=== PATIENT | female | born 1945 | race Caucasian/White ===

== ENCOUNTER 2016-05-02 13:44 | Emergency (ER) | payer MEDICARE, MEDICAID ==
[2008-12-11 01:54] VITALS: BP 172/82
[~2016-05-02] VITALS: Ht 172.7 cm; Wt 65.0 kg
[~2016-05-02 13:44] MED LIST: ALBUTEROL0.83 MG/ML IH; ALPHAG-P-0.1-5ML; ALPHAGAN OP; AMLOPIDINE PO; ANTI-DIARRHEAL2 MG PO; APRESOLINE25 MG PO; ARICEPT10 MG PO; ASPIRIN 81M81 MG/TA2 PO; ASPIRIN E.C. 8181 MG PO; BETIMOL 0.5% OPH5 ML OP; BETIMOL 0.5% OPH5 ML OU; CELEXA 20MG20 MG/TAB PO; CELEXA40 MG PO; CEPHALEXIN500 M1 PO; CIPRO 250MG TA250 MG PO; COREG 25MG25 MG/TAB PO; COREG 6.256.25 MG/TA PO; DETROL 2MG TAB2 MG PO; DETROL LA4 MG PO; DETROL LA4 PO; FERROUS SU325 MG/TAB PO; FLONASE NASAL S16 GM NS; GENTEAL 0.25%-015 ML OP; GENTEAL 10 ML10 M1 OP; GENTEAL0.32 OP; GLUCAGEN HYPOKIT1 MG IJ; GOOD SENSE LAC3000 U PO; HYDRALAZINE HCL25 MG PO; INSULIN LANTUS; IPRATROPIUM BROM3 M1 IH; LACTAID3000 U PO; LANTUS100 U/ML SC; LANTUS100 U/ML SQ; LASIX 20MG TABL20 MG PO; LEVAQUIN 2250 MG/TAB PO; LEVAQUIN 750MG750 M1 PO; LEVOXYL0.125 MG PO; LEVOXYL0.15 MG PO; LEXAPRO20 MG PO; LIPITOR 10MG10 MG PO; LIPITOR20 MG PO; LISINOPRIL; LUMIGAN OPTH; METAMUCIL1 PDR PO; MIRTAZAPINE7.5 MG PO; MUCINEX 60600 MG/TA1 PO; MULTI VITAMINS1 TAB PO; MULTIPLE VITAMI1 TAB PO; MVI; NATURAL E400 IU PO; NKA; NORCO 325 MG-7.1 TAB PO; NORVASC 10MG10 MG PO; NORVASC2.5 MG PO; NOVOLOG; NOVOLOG 100U100 U/M1 SC; NOVOLOG FLEX100 U/ML SC; NOVOLOG100 U/ML IV; PEPCID 20MG TAB20 MG PO; PLAVIX 75MG TAB75 MG PO; PREVACID 30MG30 MG PO; PREVACID30 MG PO; PRILOSEC10 MG PO; PRINIVIL10 MG PO; PYRIDIUM200 M1 PO; REGLAN 10MG10 MG/TAB PO; REGLAN 5MG5 MG PO; REMERON SOLTAB15 MG PO; SYNTHROID PO; SYNTHROID0.125 MG/T PO; TIMOLOL 0.5% OP10 ML OP; TOBRADEX 0.1%-01 OIN OD; TOBRADEX EYE O3.5 GM OP; TOBREX0.3% OP; TYLENOL 325MG325 MG PO; TYLENOL W/COD1 UDTAB PO; VITAMIN E-400200 IU PO; VITAMIN E100 I3 PO; XALATAN EYE DROPS OD; XALATAN EYE DROPS OU; ZESTRIL 10MG10 MG PO; [UNRECOGNIZED DRUG - CODE] PO
[2016-05-02 13:45] VITALS: TEMP 100.1
[2016-05-02] MEDS ORDERED: ZESTRIL 10MG10 MG PO (14:26)
[2016-05-02] MEDS ORDERED: LEXAPRO20 MG PO (14:26)
[2016-05-02] MEDS ORDERED: COREG 6.256.25 MG/TA PO (14:27)
[2016-05-02] MEDS ORDERED: SYNTHROID 0.10.15 MG PO (14:27)
[2016-05-02] MEDS ORDERED: PLAVIX 75MG TAB75 MG PO (14:27)
[2016-05-02] MEDS ORDERED: ASPIRIN E.C. 8181 MG PO (14:28)
[2016-05-02] MEDS ORDERED: NORVASC2.5 MG PO (14:28)
[2016-05-02] MEDS ORDERED: PEPCID 20MG TAB20 MG PO (14:28)
[2016-05-02] MEDS ORDERED: TEARS-ARTIFICIA15 ML OP (14:30)
[2016-05-02] MEDS ORDERED: LAC-DOSE PO (14:31)
[2016-05-02] MEDS ORDERED: ANTI-DIARRHEAL2 MG PO (14:31)
[2016-05-02] MEDS ORDERED: ARICEPT10 MG PO (14:32)
[2016-05-02] MEDS ORDERED: REMERON 15M15 MG/TA1 PO (14:32)
[2016-05-02] MEDS ORDERED: GOOD SENSE LAC3000 U PO (14:33)
[2016-05-02] MEDS ORDERED: LIPITOR20 MG PO (14:33)
[2016-05-02] MEDS ORDERED: MUCINEX 60600 MG/TA1 PO (14:34)
[2016-05-02] MEDS ORDERED: NATURAL E400 IU PO (14:35)
[2016-05-02] MEDS ORDERED: LANTUS100 U/ML SQ (14:40)
[2016-05-02 14:41] LABS: MEAN CELL VOLUME 89 fl (80.0-100.0); MEAN CORPUSCULAR HGB CONC 33 g/dl (33.0-37.0); MEAN PLATELET VOLUME 11.9 fl (7.4-10.4); PLATELET COUNT 92 K/mm3 (130-400); RED BLOOD COUNT 3.46 M/mm3 (4.10-5.30); REDCELL DISTRIBUTION WIDTH-CV 12.8 % (11.5-14.5)
[2016-05-02] MEDS ORDERED: NOVOLOG 100U100 U/M1 SQ (14:41)
[2016-05-02 14:42] LABS: ADJUSTED CALCIUM 9.2 mg/dL (8.4-10.2); ALBUMIN 3.8 gm/dL (3.5-5.0); BILIRUBIN,TOTAL 0.6 mg/dL (0.0-1.0); CREATININE, serum 2.4 mg/dL (0.52-1.25); HEMATOCRIT 30.9 % (37.0-47.0); HEMOGLOBIN 10.2 g/dl (12.5-16.0); MEAN CORPUSCULAR HEMOGLOBIN 29 pg (27.0-31.0); POTASSIUM 5.5 mmol/L (3.4-5.0); TOTAL PROTEIN 7.3 gm/dL (6.4-8.2)
[2016-05-02 14:43] LABS: ADD PATHOLOGY DIFF REVIEW NO
[2016-05-02 15:02] LABS: INR 1.1 (0.8-3.0)
[2016-05-02 15:23] LABS: BAND 4 % (0-10); EOSINOPHIL 11 % (0-4); NEUTROPHILS 64 % (42.0-75.2); PLATELET ESTIMATE DECREASED (NORMAL); TOTAL CELLS COUNTED 100
[2016-05-02 16:15] VITALS: BP 100/46; PULSE 71
== END 2016-05-02 16:20 | disposition home or self-care (01) ==
LOC: COL.ER 13:44
PROVIDERS: Emergency Medicine
DX: M79.661 Pain in right lower leg (principal); M79.651 Pain in right thigh

== ENCOUNTER 2016-08-09 15:15 | Inpatient (IN) | payer MEDICARE, MEDICAID ==
[~2016-08-09] VITALS: Ht 170.2 cm; Wt 68.7 kg
[~2016-08-09 15:15] MED LIST changes: +LAC-DOSE PO; +NOVOLOG 100U100 U/M1 SQ; +REMERON 15M15 MG/TA1 PO; +SYNTHROID 0.10.15 MG PO; +TEARS-ARTIFICIA15 ML OP
[2016-08-09 15:52] LABS: MEAN CELL VOLUME 90 fl (80.0-100.0); MEAN CORPUSCULAR HGB CONC 33 g/dl (33.0-37.0); PLATELET COUNT 83 K/mm3 (130-400); RED BLOOD COUNT 3.71 M/mm3 (4.10-5.30); REDCELL DISTRIBUTION WIDTH-CV 12.8 % (11.5-14.5)
[2016-08-09 16:00] LABS: HEMATOCRIT 33.4 % (37.0-47.0); MEAN CORPUSCULAR HEMOGLOBIN 30 pg (27.0-31.0)
[2016-08-09 16:01] LABS: PH 5 (5-8); SQUAMOUS EPITHELIAL None Seen /hpf; URINE APPEARANCE Cloudy; URINE BACTERIA Many /hpf; URINE BILIRUBIN Negative (NEGATIVE); URINE BLOOD 2+ (NEGATIVE); URINE COLOR Yellow; URINE GLUCOSE Negative (NEGATIVE); URINE KETONE Negative (NEGATIVE); URINE UROBILINOGEN Negative (NEGATIVE); URINE WBC >50 /hpf
[2016-08-09 16:09] LABS: ADD PATHOLOGY DIFF REVIEW NO
[2016-08-09] MEDS ORDERED: INSLANT SQ (16:11)
[2016-08-09] MEDS ORDERED: LEXAPRO20 MG PO (16:21)
[2016-08-09 16:28] LABS: ALBUMIN 3.8 gm/dL (3.5-5.0); C-REACTIVE PROTEIN 0.7 mg/dL (0.0-0.9); CALCIUM 8.8 mg/dL (8.4-10.2); CREATININE, serum 1.45 mg/dL (0.52-1.25); POTASSIUM 4.6 mmol/L (3.4-5.0); TOTAL PROTEIN 7.1 gm/dL (6.4-8.2)
[2016-08-09 16:52] LABS: BAND 18 % (0-10); NEUTROPHILS 70 % (42.0-75.2); PLATELET ESTIMATE NORMAL (NORMAL); TOTAL CELLS COUNTED 100
[2016-08-09] MEDS ORDERED: ZESTRIL 10MG10 MG PO (18:00)
[2016-08-09] MEDS ORDERED: COREG 6.256.25 MG/TA PO (18:01)
[2016-08-09] MEDS ORDERED: LEVOXYL0.15 MG PO (18:07)
[2016-08-09] MEDS ORDERED: PLAVIX 75MG TAB75 MG PO (18:07)
[2016-08-09] MEDS ORDERED: NORVASC2.5 MG PO (18:08)
[2016-08-09] MEDS ORDERED: PEPCID 20MG TAB20 MG PO (18:08)
[2016-08-09] MEDS ORDERED: ASPIRIN 81M81 MG/TA2 PO (18:09)
[2016-08-09] MEDS ORDERED: ARICEPT10 MG PO ×2 (18:11→19:40)
[2016-08-09] MEDS ORDERED: LACTAID3000 UNIT PO ×2 (18:11→19:37)
[2016-08-09] MEDS ORDERED: LIPITOR20 MG PO (18:12)
[2016-08-09] MEDS ORDERED: MIRTAZAPINE7.5 MG PO (18:12)
[2016-08-09] MEDS ORDERED: IMODIUM 2MG CAPS2 MG PO (19:42)
[2016-08-09] MEDS ORDERED: TYLENOL 325MG325 MG PO (19:57)
[2016-08-09 20:01] VITALS: BP 97/50; PULSE 92; TEMP 98.9
[2016-08-09] MEDS ORDERED: NOVOLOG 100U100 U/M1 SQ (21:02)
[2016-08-09 22:52] VITALS: BP 94/33; PULSE 96; TEMP 99.2
[2016-08-10 05:06] VITALS: BP 116/33; PULSE 79; TEMP 98.1
[2016-08-10 08:14] LABS: MEAN CELL VOLUME 93 fl (80.0-100.0); MEAN CORPUSCULAR HGB CONC 32 g/dl (33.0-37.0); MEAN PLATELET VOLUME 12.7 fl (7.4-10.4); PLATELET COUNT 58 K/mm3 (130-400); RED BLOOD COUNT 2.97 M/mm3 (4.10-5.30); REDCELL DISTRIBUTION WIDTH-CV 13.5 % (11.5-14.5)
[2016-08-10 08:22] LABS: ADD PATHOLOGY DIFF REVIEW NO; HEMATOCRIT 27.5 % (37.0-47.0); HEMOGLOBIN 8.7 g/dl (12.5-16.0); MEAN CORPUSCULAR HEMOGLOBIN 29 pg (27.0-31.0)
[2016-08-10 08:42] LABS: CALCIUM 7.6 mg/dL (8.4-10.2); CREATININE, serum 1.54 mg/dL (0.52-1.25)
[2016-08-10 08:57] VITALS: BP 97/34; PULSE 82; TEMP 98.8
[2016-08-10 11:03] LABS: BAND 11 % (0-10); EOSINOPHIL 1 % (0-4); NEUTROPHILS 56 % (42.0-75.2); PLATELET ESTIMATE NORMAL (NORMAL); TOTAL CELLS COUNTED 100
[2016-08-10 11:20] VITALS: BP 119/48; PULSE 86; TEMP 98.7
[2016-08-10 16:39] VITALS: BP 131/101; PULSE 76; TEMP 97.2
[2016-08-10 19:52] VITALS: BP 117/40; PULSE 82; TEMP 98.2
[2016-08-11 03:52] VITALS: BP 120/25; PULSE 75; TEMP 98.1
[2016-08-11 07:50] VITALS: BP 129/37; PULSE 81; TEMP 97.8
[2016-08-11 11:21] VITALS: BP 121/40; PULSE 70; TEMP 97.8
[2016-08-11] MEDS ORDERED: CEFTIN500 MG PO (13:22)
== END 2016-08-11 15:09 | disposition home or self-care (01) | DRG 690 ==
LOC: COL.ER 15:15 → MEDICAL 17:54
PROVIDERS: Emergency Medicine; Family Medicine
DX: N39.0 Urinary tract infection, site not specified (principal); N17.9 Acute kidney failure, unspecified; H47.619 Cortical blindness, unspecified side of brain; I12.9 Hypertensive chronic kidney disease with stage 1 through stage 4 chronic kidney disease, or unspecified chronic kidney disease; E11.22 Type 2 diabetes mellitus with diabetic chronic kidney disease; N18.3 Chronic kidney disease, stage 3 (moderate); E03.9 Hypothyroidism, unspecified; Z79.4 Long term (current) use of insulin; B96.20 Unspecified Escherichia coli [E. coli] as the cause of diseases classified elsewhere
CPT/HCPCS: 99223-AI; 99233-AI; 99239; J0456; J0696; J1644; J1815; J7030; J7050

== ENCOUNTER 2016-08-13 12:27 | Observation (INO) | payer MEDICARE, MEDICAID ==
[~2016-08-13] VITALS: Ht 170.2 cm; Wt 71.8 kg
[~2016-08-13 12:27] MED LIST changes: +CEFTIN500 MG PO; +IMODIUM 2MG CAPS2 MG PO; +INSLANT SQ; +LACTAID3000 UNIT PO
[2016-08-13] MEDS ORDERED: NOVOLOG 100U100 U/M1 SQ (13:30)
[2016-08-13 13:38] LABS: BASO % 0.2 % (0.0-2.0); EOS # 0.2 (0.0-0.7); EOS % 3.4 % (0-4.0); LYMPH # 0.7 (1.2-3.4); LYMPH % 16.7 % (20.0-51.0); MEAN CELL VOLUME 91 fl (80.0-100.0); MEAN CORPUSCULAR HGB CONC 33 g/dl (33.0-37.0); MEAN PLATELET VOLUME 11.7 fl (7.4-10.4); MONO # 0.5 (0.1-0.6); MONO % 11.2 % (1.7-9.3); PLATELET COUNT 64 K/mm3 (130-400); RED BLOOD COUNT 2.66 M/mm3 (4.10-5.30); REDCELL DISTRIBUTION WIDTH-CV 13.5 % (11.5-14.5); WHITE BLOOD COUNT 4.4 K/mm3 (4.8-10.8)
[2016-08-13] MEDS ORDERED: NATURE'S BLEND400 IU PO (13:45)
[2016-08-13 13:46] LABS: HEMATOCRIT 24.2 % (37.0-47.0); HEMOGLOBIN 7.9 g/dl (12.5-16.0); MEAN CORPUSCULAR HEMOGLOBIN 30 pg (27.0-31.0)
[2016-08-13 14:00] LABS: ADJUSTED CALCIUM 8.8 mg/dL (8.4-10.2); ALBUMIN 2.8 gm/dL (3.5-5.0); BILIRUBIN,TOTAL 0.7 mg/dL (0.0-1.0); CALCIUM 7.8 mg/dL (8.4-10.2); CREATININE, serum 1.36 mg/dL (0.52-1.25); POTASSIUM 4.1 mmol/L (3.4-5.0); TOTAL PROTEIN 5.7 gm/dL (6.4-8.2)
[2016-08-13 14:08] LABS: PH 5 (5-8); URINE APPEARANCE Clear; URINE BILIRUBIN Negative (NEGATIVE); URINE BLOOD Negative (NEGATIVE); URINE COLOR Yellow; URINE GLUCOSE Negative (NEGATIVE); URINE KETONE Negative (NEGATIVE); URINE UROBILINOGEN Negative (NEGATIVE)
[2016-08-13 14:32] LABS: URINE BACTERIA Occasional /hpf; URINE WBC 0-2 /hpf
[2016-08-13 17:04] VITALS: BP 107/43; PULSE 77; TEMP 98.9
[2016-08-13 21:23] VITALS: BP 98/42; PULSE 72; TEMP 97.6
[2016-08-14 02:10] VITALS: BP 108/44; PULSE 72; TEMP 97.4
[2016-08-14 05:46] VITALS: BP 132/50; PULSE 68; TEMP 97.7
[2016-08-14 07:44] LABS: HEMOGLOBIN 8.3 g/dl (12.5-16.0)
[2016-08-14] MEDS ORDERED: HEPARIN SOD5000 U/ML SQ (07:47)
[2016-08-14] MEDS ORDERED: NORCO 325 MG-51 TAB PO (07:48)
[2016-08-14 08:15] VITALS: BP 151/51; PULSE 64
[2016-08-14 10:10] VITALS: BP 115/37; PULSE 69; TEMP 98.4
[2016-08-14 12:44] VITALS: BP 115/37; PULSE 69; TEMP 98.4
== END 2016-08-14 13:48 ==
LOC: COL.ER 12:27 → SURG 15:18
PROVIDERS: Family Medicine; Nurse Practitioner
DX: S82.832A Other fracture of upper and lower end of left fibula, initial encounter for closed fracture (principal); I13.0 Hypertensive heart and chronic kidney disease with heart failure and stage 1 through stage 4 chronic kidney disease, or unspecified chronic kidney disease; I25.10 Atherosclerotic heart disease of native coronary artery without angina pectoris; E11.22 Type 2 diabetes mellitus with diabetic chronic kidney disease; I50.9 Heart failure, unspecified; N18.3 Chronic kidney disease, stage 3 (moderate); E03.9 Hypothyroidism, unspecified; I25.2 Old myocardial infarction; R09.89 Other specified symptoms and signs involving the circulatory and respiratory systems; N39.0 Urinary tract infection, site not specified; F32.9 Major depressive disorder, single episode, unspecified; W19.XXXA Unspecified fall, initial encounter; Z95.9 Presence of cardiac and vascular implant and graft, unspecified; Z90.710 Acquired absence of both cervix and uterus; Z86.73 Personal history of transient ischemic attack (TIA), and cerebral infarction without residual deficits; Z79.4 Long term (current) use of insulin; Z83.3 Family history of diabetes mellitus; Z82.49 Family history of ischemic heart disease and other diseases of the circulatory system; Z79.82 Long term (current) use of aspirin
CPT/HCPCS: G0378; J1644; J1815; J2270; L2114

== ENCOUNTER → 2016-08-24 | Outpatient (CLI) | payer MEDICARE, MEDICAID ==
[~2016-08-24] MED LIST changes: +FLOVENT 110MCG7.9 GM IH; +GERI-TUSSI100 MG/5 M PO; +HEPARIN SOD5000 U/ML SQ; +NATURE'S BLEND400 IU PO; +NORCO 325 MG-51 TAB PO; +ZYRTEC 10MG10 MG PO
[2016-08-24 16:07] LABS: MEAN CELL VOLUME 94 fl (80.0-100.0); MEAN CORPUSCULAR HGB CONC 32 g/dl (33.0-37.0); MEAN PLATELET VOLUME 11.9 fl (7.4-10.4); PLATELET COUNT 183 K/mm3 (130-400); RED BLOOD COUNT 3.55 M/mm3 (4.10-5.30); REDCELL DISTRIBUTION WIDTH-CV 14.6 % (11.5-14.5)
[2016-08-24 16:09] LABS: HEMATOCRIT 33.2 % (37.0-47.0); HEMOGLOBIN 10.7 g/dl (12.5-16.0); MEAN CORPUSCULAR HEMOGLOBIN 30 pg (27.0-31.0)
== END ==
LOC: ZLAB.STJ 14:58
PROVIDERS: Family Medicine
DX: D69.6 Thrombocytopenia, unspecified (principal)

== ENCOUNTER → 2016-08-24 | Outpatient (CLI) | payer MEDICARE, MEDICAID | LOC: ZLAB.STJ 12:25 | DX: D69.6 Thrombocytopenia, unspecified (principal) ==

== ENCOUNTER 2016-09-07 17:01 | Emergency (ER) | payer MEDICARE, MEDICAID ==
[2008-12-11 01:54] VITALS: BP 172/82
[~2016-09-07] VITALS: Ht 172.7 cm; Wt 62.7 kg
[~2016-09-07 17:01] MED LIST changes: -FLOVENT 110MCG7.9 GM IH; -GERI-TUSSI100 MG/5 M PO; -ZYRTEC 10MG10 MG PO
[2016-09-07 18:08] LABS: BASO # 0.1 (0.0-0.2); BASO % 0.8 % (0.0-2.0); EOS # 0.4 (0.0-0.7); EOS % 5.6 % (0-4.0); GRAN # 4.9 (1.4-6.5); GRAN % 69.2 % (42.2-75.2); HEMATOCRIT 33.2 % (37.0-47.0); HEMOGLOBIN 11.1 g/dl (12.5-16.0); LYMPH # 1.2 (1.2-3.4); LYMPH % 16.7 % (20.0-51.0); MEAN CELL VOLUME 91 fl (80.0-100.0); MEAN CORPUSCULAR HEMOGLOBIN 30 pg (27.0-31.0); MEAN CORPUSCULAR HGB CONC 33 g/dl (33.0-37.0); MEAN PLATELET VOLUME 11.9 fl (7.4-10.4); MONO # 0.5 (0.1-0.6); MONO % 7.3 % (1.7-9.3); PLATELET COUNT 108 K/mm3 (130-400); RED BLOOD COUNT 3.65 M/mm3 (4.10-5.30); REDCELL DISTRIBUTION WIDTH-CV 13.6 % (11.5-14.5); WHITE BLOOD COUNT 7.1 K/mm3 (4.8-10.8)
[2016-09-07 18:12] LABS: INR 1.1 (0.8-3.0); PROTHROMBIN TIME 12.5 SECONDS (9.7-12.8)
[2016-09-07 18:19] LABS: ALBUMIN 3.7 gm/dL (3.5-5.0); BILIRUBIN,TOTAL 0.7 mg/dL (0.0-1.0); CALCIUM 8.8 mg/dL (8.4-10.2); CREATININE, serum 1.25 mg/dL (0.52-1.25); POTASSIUM 4.3 mmol/L (3.4-5.0); TOTAL PROTEIN 6.8 gm/dL (6.4-8.2)
[2016-09-07 19:07] VITALS: BP 125/79; PULSE 54
== END 2016-09-07 19:44 | disposition home or self-care (01) ==
LOC: COL.ER 17:01
PROVIDERS: Emergency Medicine
DX: E11.649 Type 2 diabetes mellitus with hypoglycemia without coma (principal); E11.22 Type 2 diabetes mellitus with diabetic chronic kidney disease; I12.9 Hypertensive chronic kidney disease with stage 1 through stage 4 chronic kidney disease, or unspecified chronic kidney disease; N18.9 Chronic kidney disease, unspecified; Z79.4 Long term (current) use of insulin; I25.10 Atherosclerotic heart disease of native coronary artery without angina pectoris; Z79.01 Long term (current) use of anticoagulants; Z86.73 Personal history of transient ischemic attack (TIA), and cerebral infarction without residual deficits
CPT/HCPCS: A9284; J7040

== ENCOUNTER 2016-09-12 18:16 | Inpatient (IN) | payer MEDICARE, MEDICAID ==
[~2016-09-12] VITALS: Ht 172.7 cm; Wt 63.4 kg
[2016-09-12 18:45] LABS: BASO % 0.5 % (0.0-2.0); EOS # 0.4 (0.0-0.7); EOS % 5.6 % (0-4.0); GRAN # 4.1 (1.4-6.5); GRAN % 65.4 % (42.2-75.2); LYMPH # 1.1 (1.2-3.4); LYMPH % 16.8 % (20.0-51.0); MEAN CELL VOLUME 91 fl (80.0-100.0); MEAN CORPUSCULAR HGB CONC 33 g/dl (33.0-37.0); MEAN PLATELET VOLUME 11.9 fl (7.4-10.4); MONO # 0.7 (0.1-0.6); MONO % 11.2 % (1.7-9.3); PLATELET COUNT 100 K/mm3 (130-400); RED BLOOD COUNT 3.36 M/mm3 (4.10-5.30); REDCELL DISTRIBUTION WIDTH-CV 13.5 % (11.5-14.5); WHITE BLOOD COUNT 6.3 K/mm3 (4.8-10.8)
[2016-09-12 18:55] LABS: HEMATOCRIT 30.6 % (37.0-47.0); MEAN CORPUSCULAR HEMOGLOBIN 30 pg (27.0-31.0)
[2016-09-12 19:00] LABS: ALBUMIN 3.5 gm/dL (3.5-5.0); BILIRUBIN,TOTAL 0.7 mg/dL (0.0-1.0); C-REACTIVE PROTEIN 2.6 mg/dL (0.0-0.9); CALCIUM 8.6 mg/dL (8.4-10.2); CREATININE, serum 1.51 mg/dL (0.52-1.25); POTASSIUM 4.2 mmol/L (3.4-5.0); TOTAL PROTEIN 6.8 gm/dL (6.4-8.2)
[2016-09-12 19:09] LABS: TROPONIN-I 0.046 ng/mL (0.000-0.034)
[2016-09-12 19:17] LABS: PH 5 (5-8); SQUAMOUS EPITHELIAL 0-2 /hpf; URINE APPEARANCE Cloudy; URINE BACTERIA Rare /hpf; URINE BILIRUBIN Negative (NEGATIVE); URINE BLOOD 3+ (NEGATIVE); URINE COLOR Yellow; URINE GLUCOSE Negative (NEGATIVE); URINE KETONE Negative (NEGATIVE); URINE RBC >50 /hpf; URINE UROBILINOGEN Negative (NEGATIVE)
[2016-09-12 19:18] LABS: URINE WBC >50 /hpf
[2016-09-12 22:24] VITALS: BP 122/48; PULSE 78; TEMP 98.8
[2016-09-13] VITALS (7 sets, daily range): BP systolic 96–126; BP diastolic 36–76; PULSE 60–98; TEMP 98.1–100.3
[2016-09-13 09:09] LABS: TOTAL IRON BINDING CAPACITY 297 ug/dL (265-497)
[2016-09-14] VITALS (10 sets, daily range): BP systolic 86–128; BP diastolic 32–52; PULSE 50–79; TEMP 97.4–98.6
[2016-09-14 07:26] LABS: BASO % 0.2 % (0.0-2.0); EOS # 0.3 (0.0-0.7); GRAN # 2.5 (1.4-6.5); GRAN % 55.3 % (42.2-75.2); LYMPH # 1.2 (1.2-3.4); LYMPH % 27.6 % (20.0-51.0); MEAN CELL VOLUME 93 fl (80.0-100.0); MEAN CORPUSCULAR HGB CONC 32 g/dl (33.0-37.0); MEAN PLATELET VOLUME 12.1 fl (7.4-10.4); MONO # 0.5 (0.1-0.6); MONO % 10.7 % (1.7-9.3); PLATELET COUNT 101 K/mm3 (130-400); RED BLOOD COUNT 3.08 M/mm3 (4.10-5.30); REDCELL DISTRIBUTION WIDTH-CV 13.4 % (11.5-14.5); WHITE BLOOD COUNT 4.5 K/mm3 (4.8-10.8)
[2016-09-14 07:36] LABS: CALCIUM 8.3 mg/dL (8.4-10.2); CREATININE, serum 1.46 mg/dL (0.52-1.25); POTASSIUM 3.9 mmol/L (3.4-5.0)
[2016-09-14 07:38] LABS: HEMATOCRIT 28.6 % (37.0-47.0); HEMOGLOBIN 9.2 g/dl (12.5-16.0); MEAN CORPUSCULAR HEMOGLOBIN 30 pg (27.0-31.0)
[2016-09-15] VITALS (7 sets, daily range): BP systolic 107–143; BP diastolic 35–53; PULSE 59–65; TEMP 97.1–98.2
[2016-09-15 07:27] LABS: BASO % 0.5 % (0.0-2.0); EOS # 0.3 (0.0-0.7); EOS % 8.5 % (0-4.0); GRAN # 2.1 (1.4-6.5); LYMPH % 26.9 % (20.0-51.0); MEAN CELL VOLUME 93 fl (80.0-100.0); MEAN CORPUSCULAR HGB CONC 32 g/dl (33.0-37.0); MEAN PLATELET VOLUME 11.6 fl (7.4-10.4); MONO # 0.3 (0.1-0.6); MONO % 8.8 % (1.7-9.3); PLATELET COUNT 111 K/mm3 (130-400); RED BLOOD COUNT 3.15 M/mm3 (4.10-5.30); REDCELL DISTRIBUTION WIDTH-CV 13.3 % (11.5-14.5); WHITE BLOOD COUNT 3.9 K/mm3 (4.8-10.8)
[2016-09-15 07:30] LABS: HEMATOCRIT 29.4 % (37.0-47.0); HEMOGLOBIN 9.4 g/dl (12.5-16.0); MEAN CORPUSCULAR HEMOGLOBIN 30 pg (27.0-31.0)
[2016-09-15 07:47] LABS: CALCIUM 8.4 mg/dL (8.4-10.2); CREATININE, serum 1.27 mg/dL (0.52-1.25); POTASSIUM 3.8 mmol/L (3.4-5.0)
[2016-09-16 05:50] VITALS: BP 134/40; PULSE 62; TEMP 97.5
[2016-09-16 08:35] VITALS: BP 115/48; PULSE 80; TEMP 97.6
[2016-09-16] MEDS ORDERED: ZYRTEC 10MG10 MG PO (08:56)
[2016-09-16] MEDS ORDERED: FLOVENT 110MCG7.9 GM IH (09:00)
[2016-09-16] MEDS ORDERED: FLONASE NASAL S16 GM NS (09:01)
[2016-09-16] MEDS ORDERED: CEFTIN500 MG PO (09:04)
[2016-09-16 12:00] VITALS: BP 136/47; PULSE 67; TEMP 98.3
[2016-09-16 12:23] VITALS: BP 136/47; PULSE 67; TEMP 98.3
[2016-09-16] MEDS ORDERED: NORCO 325 MG-51 TAB PO (13:18)
== END 2016-09-16 15:05 | DRG 291 ==
LOC: COL.ER 18:16 → MEDICAL 20:52
PROVIDERS: Emergency Medicine; Internal Medicine; Nurse Practitioner Family
DX: I13.0 Hypertensive heart and chronic kidney disease with heart failure and stage 1 through stage 4 chronic kidney disease, or unspecified chronic kidney disease (principal); I50.33 Acute on chronic diastolic (congestive) heart failure; N39.0 Urinary tract infection, site not specified; E11.22 Type 2 diabetes mellitus with diabetic chronic kidney disease; N18.3 Chronic kidney disease, stage 3 (moderate); Z95.2 Presence of prosthetic heart valve; I25.10 Atherosclerotic heart disease of native coronary artery without angina pectoris; Z79.4 Long term (current) use of insulin; I69.312 Visuospatial deficit and spatial neglect following cerebral infarction; B96.20 Unspecified Escherichia coli [E. coli] as the cause of diseases classified elsewhere
CPT/HCPCS: 99223-AI; 99232-AI; 99233-AI; 99239; A9502; J0696; J1650; J1815; J1940; J2785; J7030

== ENCOUNTER 2016-09-21 12:29 | Day surgery (SDC) | payer MEDICARE, MEDICAID ==
[2008-12-11 01:54] VITALS: BP 172/82
[~2016-09-21] VITALS: Ht 172.7 cm; Wt 61.4 kg
[~2016-09-21 12:29] MED LIST changes: +FLOVENT 110MCG7.9 GM IH; +ZYRTEC 10MG10 MG PO
[2016-09-21] MEDS ORDERED: GERI-TUSSI100 MG/5 M PO (15:07)
[2016-09-21 15:17] VITALS: BP 138/49; PULSE 57; TEMP 97.7
[2016-09-21 16:15] VITALS: BP 145/54; PULSE 64; TEMP 97.5
[2016-09-21 16:23] VITALS: TEMP 97
[2016-09-21 16:30] VITALS: BP 161/58; PULSE 68
[2016-09-21 16:40] VITALS: BP 128/56; PULSE 76
== END 2016-09-21 16:50 | disposition home or self-care (01) ==
LOC: SDCO 12:29
DX: N39.41 Urge incontinence (principal); E11.9 Type 2 diabetes mellitus without complications; I12.9 Hypertensive chronic kidney disease with stage 1 through stage 4 chronic kidney disease, or unspecified chronic kidney disease; I50.31 Acute diastolic (congestive) heart failure; I25.119 Atherosclerotic heart disease of native coronary artery with unspecified angina pectoris; N18.3 Chronic kidney disease, stage 3 (moderate); F32.9 Major depressive disorder, single episode, unspecified; D64.9 Anemia, unspecified; E03.9 Hypothyroidism, unspecified; I25.2 Old myocardial infarction; Z79.4 Long term (current) use of insulin; Z90.710 Acquired absence of both cervix and uterus; Z86.73 Personal history of transient ischemic attack (TIA), and cerebral infarction without residual deficits; Z83.3 Family history of diabetes mellitus; Z82.49 Family history of ischemic heart disease and other diseases of the circulatory system; Z80.8 Family history of malignant neoplasm of other organs or systems
CPT/HCPCS: J0585; J0690; J2704; J2765; J3010; J7030

== ENCOUNTER → 2017-03-07 | Outpatient (CLI) | payer MEDICARE, MEDICAID ==
[~2017-03-07] MED LIST changes: +GERI-TUSSI100 MG/5 M PO
== END ==
LOC: MC.RAD 13:40
DX: Z12.31 Encounter for screening mammogram for malignant neoplasm of breast (principal)

== ENCOUNTER 2017-08-10 12:04 | Emergency (ER) | payer MEDICARE, MEDICAID ==
[2008-12-11 01:54] VITALS: BP 172/82
[~2017-08-10] VITALS: Ht 172.7 cm; Wt 59.1 kg
[2017-08-10 12:07] VITALS: TEMP 97
[2017-08-10 13:00] LABS: BASO % 0.4 % (0.0-2.0); EOS % 0.7 % (0-4.0); GRAN # 4.4 (1.4-6.5); GRAN % 80.1 % (42.2-75.2); HEMOGLOBIN 11.7 g/dl (12.5-16.0); LYMPH # 0.7 (1.2-3.4); MEAN CELL VOLUME 90 fl (80.0-100.0); MEAN CORPUSCULAR HEMOGLOBIN 30 pg (27.0-31.0); MEAN CORPUSCULAR HGB CONC 34 g/dl (33.0-37.0); MEAN PLATELET VOLUME 11.1 fl (7.4-10.4); MONO # 0.3 (0.1-0.6); MONO % 5.3 % (1.7-9.3); PLATELET COUNT 108 K/mm3 (130-400); RED BLOOD COUNT 3.87 M/mm3 (4.10-5.30); REDCELL DISTRIBUTION WIDTH-CV 12.3 % (11.5-14.5)
[2017-08-10 13:05] LABS: HEMATOCRIT 34.9 % (37.0-47.0)
[2017-08-10 13:11] LABS: ALBUMIN 3.3 gm/dL (3.5-5.0); BILIRUBIN,TOTAL 0.9 mg/dL (0.0-1.0); CALCIUM 8.4 mg/dL (8.4-10.2); CREATININE, serum 1.23 mg/dL (0.52-1.25); POTASSIUM 4.6 mmol/L (3.4-5.0); TOTAL PROTEIN 6.6 gm/dL (6.4-8.2)
[2017-08-10 13:22] LABS: TROPONIN-I 0.023 ng/mL (0.000-0.034)
[2017-08-10 13:53] LABS: COLLECTION METHOD CLEAN CATCH
[2017-08-10 14:03] LABS: MUCOUS Present /lpf; PH 5 (5-8); SQUAMOUS EPITHELIAL 0-2 /hpf; URINE APPEARANCE Clear; URINE BACTERIA None Seen /hpf; URINE BILIRUBIN Negative (NEGATIVE); URINE BLOOD Negative (NEGATIVE); URINE COLOR Yellow; URINE GLUCOSE Negative (NEGATIVE); URINE KETONE Negative (NEGATIVE); URINE LEUKOCYTE ESTERASE Negative (NEGATIVE); URINE NITRATE Negative (NEGATIVE); URINE PROTEIN(semi-quant) 2+ (NEGATIVE); URINE RBC 0-2 /hpf; URINE UROBILINOGEN Negative (NEGATIVE)
[2017-08-10 15:29] VITALS: PULSE 79
[2017-08-10 16:20] VITALS: BP 153/86
== END 2017-08-10 16:21 | disposition home or self-care (01) ==
LOC: COL.ER 12:04
PROVIDERS: Emergency Medicine
DX: R55 Syncope and collapse (principal); I10 Essential (primary) hypertension; Z86.73 Personal history of transient ischemic attack (TIA), and cerebral infarction without residual deficits; Z79.51 Long term (current) use of inhaled steroids; Z79.4 Long term (current) use of insulin
CPT/HCPCS: J1815

== ENCOUNTER 2018-07-29 21:16 | Emergency (ER) | payer MEDICARE, MEDICAID ==
[2008-12-11 01:54] VITALS: BP 172/82
[~2018-07-29] VITALS: Ht 172.7 cm; Wt 67.3 kg
[2018-07-29 21:16] VITALS: TEMP 99.1
[2018-07-29 21:46] LABS: BASO % 0.1 % (0.0-2.0); EOS # 0.1 (0.0-0.7); EOS % 1.5 % (0-4.0); GRAN # 5.3 (1.4-6.5); GRAN % 78.9 % (42.2-75.2); HEMOGLOBIN 12.1 g/dl (12.5-16.0); LYMPH # 0.8 (1.2-3.4); LYMPH % 11.8 % (20.0-51.0); MEAN CELL VOLUME 89 fl (80.0-100.0); MEAN CORPUSCULAR HEMOGLOBIN 30 pg (27.0-31.0); MEAN CORPUSCULAR HGB CONC 34 g/dl (33.0-37.0); MEAN PLATELET VOLUME 11.6 fl (7.4-10.4); MONO # 0.5 (0.1-0.6); MONO % 7.4 % (1.7-9.3); PLATELET COUNT 102 K/mm3 (130-400); RED BLOOD COUNT 4.03 M/mm3 (4.10-5.30); REDCELL DISTRIBUTION WIDTH-CV 12.2 % (11.5-14.5)
[2018-07-29 21:57] LABS: ALANINE AMINOTRANSFERASE 28 U/L (9-52); ALBUMIN 3.7 gm/dL (3.5-5.0); ALKALINE PHOSPHATASE 93 U/L (50-136); ANION GAP 8 mmol/L (7-16); AST,SGOT 33 U/L (15-37); BILIRUBIN,TOTAL 0.3 mg/dL (0.0-1.0); BLOOD UREA NITROGEN 31 mg/dL (7-17); C-REACTIVE PROTEIN < 0.5 mg/dL (0.0-0.9); CALCIUM 9.1 mg/dL (8.4-10.2); CARBON DIOXIDE 27 mmol/L (22-30); CHLORIDE 109 mmol/L (98-107); CREATININE, serum 1.69 (0.52-1.25); GLUCOSE 181 mg/dL (74-106); POTASSIUM 4.6 mmol/L (3.4-5.0); SODIUM 144 mmol/L (137-145); TOTAL PROTEIN 7.3 gm/dL (6.4-8.2)
[2018-07-29 23:44] VITALS: BP 156/65; PULSE 92
== END 2018-07-29 23:38 | disposition home or self-care (01) ==
LOC: COL.ER 21:16
PROVIDERS: Emergency Medicine
DX: R51 Headache (principal); I25.10 Atherosclerotic heart disease of native coronary artery without angina pectoris; I12.9 Hypertensive chronic kidney disease with stage 1 through stage 4 chronic kidney disease, or unspecified chronic kidney disease; E11.22 Type 2 diabetes mellitus with diabetic chronic kidney disease; N18.9 Chronic kidney disease, unspecified; Z86.73 Personal history of transient ischemic attack (TIA), and cerebral infarction without residual deficits; Z79.4 Long term (current) use of insulin; Z79.51 Long term (current) use of inhaled steroids; Z79.02 Long term (current) use of antithrombotics/antiplatelets
CPT/HCPCS: J1885; J7040

== ENCOUNTER 2018-09-05 09:41 | Emergency (ER) | payer MEDICARE, MEDICAID ==
[2008-12-11 01:54] VITALS: BP 172/82
[~2018-09-05] VITALS: Ht 170.2 cm; Wt 67.3 kg
[2018-09-05 09:41] VITALS: TEMP 96.8
[~2018-09-05 09:41] MED LIST changes: +COREG 3.123.125 MG/T PO
[2018-09-05] MEDS ORDERED: ALLEGRA 180MG180 MG PO (10:13)
[2018-09-05] MEDS ORDERED: MYRBETR50MG PO (10:14)
[2018-09-05] MEDS ORDERED: LIQUIFILM TEARS15 ML OU (10:18)
[2018-09-05] MEDS ORDERED: PROBIOTIC-SUNMARK PO (10:21)
[2018-09-05 10:28] LABS: BASO % 0.7 % (0.0-2.0); EOS # 0.2 (0.0-0.7); EOS % 3.1 % (0-4.0); GRAN # 4.2 (1.4-6.5); GRAN % 68.4 % (42.2-75.2); HEMOGLOBIN 12.2 g/dl (12.5-16.0); LYMPH # 1.2 (1.2-3.4); LYMPH % 19.9 % (20.0-51.0); MEAN CELL VOLUME 90 fl (80.0-100.0); MEAN CORPUSCULAR HEMOGLOBIN 30 pg (27.0-31.0); MEAN CORPUSCULAR HGB CONC 34 g/dl (33.0-37.0); MEAN PLATELET VOLUME 10.7 fl (7.4-10.4); MONO # 0.5 (0.1-0.6); MONO % 7.6 % (1.7-9.3); PLATELET COUNT 109 K/mm3 (130-400); RED BLOOD COUNT 4.05 M/mm3 (4.10-5.30); REDCELL DISTRIBUTION WIDTH-CV 12.3 % (11.5-14.5)
[2018-09-05 10:32] LABS: HEMATOCRIT 36.4 % (37.0-47.0)
[2018-09-05 10:39] LABS: ALBUMIN 3.7 gm/dL (3.5-5.0); BILIRUBIN,TOTAL 0.4 mg/dL (0.0-1.0); CREATININE, serum 1.43 (0.52-1.25); POTASSIUM 4.1 mmol/L (3.4-5.0); TOTAL PROTEIN 7.1 gm/dL (6.4-8.2)
[2018-09-05 11:50] VITALS: BP 161/72; PULSE 98
== END 2018-09-05 12:01 | disposition home or self-care (01) ==
LOC: COL.ER 09:41
PROVIDERS: Emergency Medicine
DX: I10 Essential (primary) hypertension (principal); E11.9 Type 2 diabetes mellitus without complications; I25.10 Atherosclerotic heart disease of native coronary artery without angina pectoris; F32.9 Major depressive disorder, single episode, unspecified; E03.9 Hypothyroidism, unspecified; Z86.73 Personal history of transient ischemic attack (TIA), and cerebral infarction without residual deficits; Z79.82 Long term (current) use of aspirin; Z79.02 Long term (current) use of antithrombotics/antiplatelets

== ENCOUNTER 2018-12-19 04:02 | Emergency (ER) | payer MEDICARE, MEDICAID ==
[2008-12-11 01:54] VITALS: BP 172/82
[~2018-12-19] VITALS: Ht 170.2 cm; Wt 67.3 kg
[~2018-12-19 04:02] MED LIST changes: +ALLEGRA 180MG180 MG PO; +LIQUIFILM TEARS15 ML OU; +MYRBETR50MG PO; +PROBIOTIC-SUNMARK PO
[2018-12-19 04:23] LABS: BASO % 0.5 % (0.0-2.0); EOS # 0.3 (0.0-0.7); EOS % 3.9 % (0-4.0); GRAN # 4.1 (1.4-6.5); GRAN % 63.8 % (42.2-75.2); HEMATOCRIT 36.6 % (37.0-47.0); HEMOGLOBIN 12.3 g/dl (12.5-16.0); LYMPH # 1.5 (1.2-3.4); LYMPH % 22.6 % (20.0-51.0); MEAN CELL VOLUME 90 fl (80.0-100.0); MEAN CORPUSCULAR HEMOGLOBIN 30 pg (27.0-31.0); MEAN CORPUSCULAR HGB CONC 34 g/dl (33.0-37.0); MEAN PLATELET VOLUME 10.7 fl (7.4-10.4); MONO # 0.6 (0.1-0.6); MONO % 8.7 % (1.7-9.3); PLATELET COUNT 105 K/mm3 (130-400); RED BLOOD COUNT 4.06 M/mm3 (4.10-5.30); REDCELL DISTRIBUTION WIDTH-CV 12.2 % (11.5-14.5)
[2018-12-19 04:37] LABS: ALANINE AMINOTRANSFERASE 28 U/L (9-52); ALBUMIN 3.8 gm/dL (3.5-5.0); ALKALINE PHOSPHATASE 77 U/L (50-136); ANION GAP 8 mmol/L (7-16); AST,SGOT 34 U/L (15-37); BILIRUBIN,TOTAL 0.3 mg/dL (0.0-1.0); BLOOD UREA NITROGEN 31 mg/dL (7-17); CALCIUM 9.1 mg/dL (8.4-10.2); CARBON DIOXIDE 27 mmol/L (22-30); CHLORIDE 109 mmol/L (98-107); CREATININE, serum 1.57 (0.52-1.25); GLUCOSE 83 mg/dL (74-106); MAGNESIUM 1.9 mg/dL (1.6-2.3); POTASSIUM 3.8 mmol/L (3.4-5.0); SODIUM 144 mmol/L (137-145); TOTAL PROTEIN 7.2 gm/dL (6.4-8.2)
[2018-12-19 04:38] LABS: C-REACTIVE PROTEIN < 0.5 mg/dL (0.0-0.9)
[2018-12-19 10:25] VITALS: BP 141/65; PULSE 75; TEMP 98.7
== END 2018-12-19 10:25 | disposition home or self-care (01) ==
LOC: COL.ER 04:02
PROVIDERS: Emergency Medicine
DX: E11.649 Type 2 diabetes mellitus with hypoglycemia without coma (principal); I25.10 Atherosclerotic heart disease of native coronary artery without angina pectoris; I12.9 Hypertensive chronic kidney disease with stage 1 through stage 4 chronic kidney disease, or unspecified chronic kidney disease; R19.7 Diarrhea, unspecified; E11.22 Type 2 diabetes mellitus with diabetic chronic kidney disease; E03.9 Hypothyroidism, unspecified; N18.9 Chronic kidney disease, unspecified; F32.9 Major depressive disorder, single episode, unspecified; Z90.710 Acquired absence of both cervix and uterus; Z86.73 Personal history of transient ischemic attack (TIA), and cerebral infarction without residual deficits; Z79.02 Long term (current) use of antithrombotics/antiplatelets; Z79.82 Long term (current) use of aspirin; Z79.4 Long term (current) use of insulin
CPT/HCPCS: J7030

== ENCOUNTER 2018-12-25 11:32 | Emergency (ER) | payer MEDICARE, MEDICAID ==
[2008-12-11 01:54] VITALS: BP 172/82
[~2018-12-25] VITALS: Ht 170.2 cm; Wt 67.3 kg
[2018-12-25 12:26] LABS: BASO % 0.4 % (0.0-2.0); EOS # 0.2 (0.0-0.7); EOS % 3.3 % (0-4.0); GRAN # 3.6 (1.4-6.5); GRAN % 65.8 % (42.2-75.2); HEMOGLOBIN 11.5 g/dl (12.5-16.0); LYMPH # 1.2 (1.2-3.4); LYMPH % 21.6 % (20.0-51.0); MEAN CELL VOLUME 90 fl (80.0-100.0); MEAN CORPUSCULAR HEMOGLOBIN 30 pg (27.0-31.0); MEAN CORPUSCULAR HGB CONC 33 g/dl (33.0-37.0); MEAN PLATELET VOLUME 11.7 fl (7.4-10.4); MONO # 0.5 (0.1-0.6); MONO % 8.7 % (1.7-9.3); PLATELET COUNT 99 K/mm3 (130-400); RED BLOOD COUNT 3.83 M/mm3 (4.10-5.30); REDCELL DISTRIBUTION WIDTH-CV 12.6 % (11.5-14.5)
[2018-12-25 12:29] LABS: HEMATOCRIT 34.5 % (37.0-47.0)
[2018-12-25 12:36] LABS: ALANINE AMINOTRANSFERASE 30 U/L (9-52); ALBUMIN 3.7 gm/dL (3.5-5.0); ALKALINE PHOSPHATASE 85 U/L (50-136); ANION GAP 10 mmol/L (7-16); AST,SGOT 36 U/L (15-37); BILIRUBIN,TOTAL 0.2 mg/dL (0.0-1.0); BLOOD UREA NITROGEN 31 mg/dL (7-17); CALCIUM 8.7 mg/dL (8.4-10.2); CARBON DIOXIDE 19 mmol/L (22-30); CHLORIDE 115 mmol/L (98-107); CREATININE, serum 1.52 (0.52-1.25); GLUCOSE 128 mg/dL (74-106); LIPASE 108 U/L (23-300); POTASSIUM 4.4 mmol/L (3.4-5.0); SODIUM 144 mmol/L (137-145)
[2018-12-25 12:37] LABS: C-REACTIVE PROTEIN < 0.5 mg/dL (0.0-0.9)
[2018-12-25 13:35] LABS: COLLECTION METHOD CLEAN CATCH
[2018-12-25 13:47] LABS: BUDDING YEAST Present /hpf; MUCOUS Present /lpf; PH 5 (5-8); SQUAMOUS EPITHELIAL 0-2 /hpf; URINE APPEARANCE Cloudy; URINE BACTERIA Rare /hpf; URINE BILIRUBIN Negative (NEGATIVE); URINE BLOOD Negative (NEGATIVE); URINE COLOR Yellow; URINE GLUCOSE Negative (NEGATIVE); URINE KETONE Negative (NEGATIVE); URINE LEUKOCYTE ESTERASE 3+ (NEGATIVE); URINE NITRATE Negative (NEGATIVE); URINE PROTEIN(semi-quant) 1+ (NEGATIVE); URINE UROBILINOGEN Negative (NEGATIVE)
[2018-12-25 15:06] LABS: COLLECTION METHOD CLEAN CATCH
[2018-12-25 15:14] LABS: MUCOUS Present /lpf; PH 5 (5-8); SQUAMOUS EPITHELIAL 0-2 /hpf; URINE APPEARANCE Hazy; URINE BACTERIA Rare /hpf; URINE BILIRUBIN Negative (NEGATIVE); URINE BLOOD Negative (NEGATIVE); URINE COLOR Yellow; URINE GLUCOSE Negative (NEGATIVE); URINE KETONE Negative (NEGATIVE); URINE LEUKOCYTE ESTERASE 3+ (NEGATIVE); URINE NITRATE Negative (NEGATIVE); URINE PROTEIN(semi-quant) 1+ (NEGATIVE); URINE UROBILINOGEN Negative (NEGATIVE)
[2018-12-25] MEDS ORDERED: MACROBID 1100 MG/CAP PO ×2 (15:17)
[2018-12-25] MEDS ORDERED: CEFTIN500 MG PO (15:24)
[2018-12-25 15:31] VITALS: BP 164/69; PULSE 72; TEMP 98.5
== END 2018-12-25 15:45 | disposition home or self-care (01) ==
LOC: COL.ER 11:32
PROVIDERS: Family Medicine
DX: R19.7 Diarrhea, unspecified (principal); N39.0 Urinary tract infection, site not specified; E11.9 Type 2 diabetes mellitus without complications; I10 Essential (primary) hypertension; Z90.710 Acquired absence of both cervix and uterus
CPT/HCPCS: J2405; J7030; Q9967

== ENCOUNTER 2019-05-17 05:46 | Inpatient (IN) | payer MEDICARE, MEDICAID ==
[~2019-05-17] VITALS: Ht 172.7 cm; Wt 74.4 kg
[~2019-05-17 05:46] MED LIST changes: +MACROBID 1100 MG/CAP PO
[2019-05-17 06:13] LABS: HEMOGLOBIN 12.1 g/dl (12.5-16.0); MEAN CELL VOLUME 89 fl (80.0-100.0); MEAN CORPUSCULAR HEMOGLOBIN 30 pg (27.0-31.0); MEAN CORPUSCULAR HGB CONC 34 g/dl (33.0-37.0); MEAN PLATELET VOLUME 11.1 fl (7.4-10.4); PLATELET COUNT 70 K/mm3 (130-400); RED BLOOD COUNT 4.01 M/mm3 (4.10-5.30); REDCELL DISTRIBUTION WIDTH-CV 12.5 % (11.5-14.5)
[2019-05-17 06:27] LABS: ALBUMIN 3.8 gm/dL (3.5-5.0); BILIRUBIN,TOTAL 0.7 mg/dL (0.0-1.0); C-REACTIVE PROTEIN 1.4 mg/dL (0.0-0.9); CALCIUM 8.4 mg/dL (8.4-10.2); CREATININE, serum 1.54 (0.52-1.25); POTASSIUM 4.2 mmol/L (3.4-5.0); TOTAL PROTEIN 7.1 gm/dL (6.4-8.2)
[2019-05-17 06:29] LABS: HEMATOCRIT 35.8 % (37.0-47.0)
[2019-05-17 06:35] LABS: TROPONIN-I 0.034 ng/mL (0.000-0.035)
[2019-05-17 06:40] LABS: COLLECTION METHOD CLEAN CATCH
[2019-05-17 07:07] LABS: PH 5 (5-8); SQUAMOUS EPITHELIAL 0-2 /hpf; URINE APPEARANCE Cloudy; URINE BACTERIA Rare /hpf; URINE BILIRUBIN Negative (NEGATIVE); URINE BLOOD 2+ (NEGATIVE); URINE COLOR Yellow; URINE GLUCOSE Negative (NEGATIVE); URINE KETONE Negative (NEGATIVE); URINE LEUKOCYTE ESTERASE 3+ (NEGATIVE); URINE NITRATE Positive (NEGATIVE); URINE PROTEIN(semi-quant) 2+ (NEGATIVE); URINE UROBILINOGEN Negative (NEGATIVE)
[2019-05-17] MEDS ORDERED: TAB-A-VITE1 TA1 PO (07:25)
[2019-05-17 07:40] LABS: BAND 11 % (0-10); EOSINOPHIL 2 % (0-4); LYMPHOCYTE 24 % (20.0-51.0); NEUTROPHILS 61 % (42.0-75.2)
[2019-05-17 10:07] VITALS: BP 110/39; PULSE 95; TEMP 98.8
--- NOTE | 2019-05-17 11:15 | NUR ---
Patient is a new admit from ER. she complain of back and leg pain, spasm on lower extremity. Patient is alert and oriented. Twist Maker - Karely is at bedside.
[2019-05-17 12:56] VITALS: BP 107/41; PULSE 88; TEMP 98.1
--- NOTE | 2019-05-17 13:18 | NUR ---
MAXIM met with the patient and her roommate and caregiver, Valerie Mera (ph#[phone]), to discuss discharge plan. The patient is legally blind. The patient lives in [place] with Valerie. The patient reports needing assistance with bathing and has a walker, wheelchair, and utilizes a gait belt. She also has personal care attendants for 50-58 hours a week from [address] [place] [address]. Karely states that when she is not home, [address] [place] [address] is there to help the patient. The patient's PCP is Dr. Maryan Fernandez and she receives her medications at [facility]. She reports no difficulties obtaining her meds. The patient's advanced directives are in EMR. Her DPOA-HC is Valerie. The patient plans to return home with Karely and resume her her services from [address] [place] [address] upon discharge. MAXIM to continue to follow.
[2019-05-17 16:28] VITALS: BP 103/39; PULSE 102; TEMP 98.2
--- NOTE | 2019-05-17 18:30 | NUR ---
PT report received from jd RN at bedside. PT is resting in bed with S.O present and participating in report and history. PT shows no s/s of distress and denies wants/needs at this time. PT spouse expresses concerns about PT receiving insulin that S.O is unable to determine dosing for. Education provided that PT has a right to refuse any medication and that if there are concerns about insulin dosing at the time of administration that this advertising copy writer can contact physician to relay concerns and PT's and S.O desired dosage. PT S.O states understanding. Will continue to monitor.
[2019-05-17 19:16] VITALS: BP 98/49; PULSE 84; TEMP 98.4
--- NOTE | 2019-05-17 19:19 | NUR ---
Earlier today patient blood sugar was 316. Patient refuse 8 Units of insulin Novlog. Patient state the dose is too high. Dr. Chavez was informed. Insulin was held. Blood Sugar was checked in the evening blood sugar was 220. she received 2units of Novlog. Karely- friend is at bedside. she came up with patient from the ER this morning. Dr Martínez was inform about Troponin 1 of 0.200. Patient complained of spasm earlier today but she feels better now.
--- NOTE | 2019-05-17 20:15 | NUR ---
Assessment performed with MECHANICAL MANUFACTURING ENGINEER present and PT assisted to bedside commode with MECHANICAL MANUFACTURING ENGINEER present D/T patient stating that she needed to void. PT S.O is noted to be very involved in PT care to the point of telling the PT when she needs to try to use the commode an dfor how long she needs to remain on the commode. PT requires assist x1 to transfer safely to her feet and once on her feet is noted to move slowly and purposely. PT is able to reposition herself on the commode and is noted to void and have a BM. MECHANICAL MANUFACTURING ENGINEER assists with sophy-care while this development writer helps support PT in a standing position. PT assisted back to bed and assisted into a posiiton that PT reports is comfortable. No s/s of distress noted. PT S.O is noted to be upset when PT is talking D/T "waiting all day" to watch the Democratic Debate on the TV. Once cares are completed S.O makes it known that she prefers minimal interuptions until about 10pm so that she can watch tv uninterupted. Will continue to monitor.
--- NOTE | 2019-05-17 21:26 | NUR ---
Jaqui CHANG notified of blood culture results showing E-coli and that PT is on Rocephin 1G IV daily. No new orders.
[2019-05-18 00:04] VITALS: BP 107/41; PULSE 90; TEMP 98.7
--- NOTE | 2019-05-18 00:58 | NUR ---
PT is noted to be resting in bed with eyes closed with no s/s of pain or distress noted. PT reports that the PRN APAP was effective and that she is going to go to sleep. PT S.O sitting in recliner playing cards. [place] provided to S.O who reports that she will be staying overnight. Will continue to monitor.
[2019-05-18 03:37] VITALS: BP 116/44; PULSE 80
[2019-05-18 06:29] LABS: MEAN CELL VOLUME 92 fl (80.0-100.0); MEAN CORPUSCULAR HGB CONC 34 g/dl (33.0-37.0); MEAN PLATELET VOLUME 12.8 fl (7.4-10.4); RED BLOOD COUNT 3.15 M/mm3 (4.10-5.30); REDCELL DISTRIBUTION WIDTH-CV 13.4 % (11.5-14.5)
[2019-05-18 06:38] LABS: CALCIUM 7.3 mg/dL (8.4-10.2); CREATININE, serum 1.65 (0.52-1.25); POTASSIUM 3.9 mmol/L (3.4-5.0)
[2019-05-18 06:43] LABS: HEMATOCRIT 29.1 % (37.0-47.0); HEMOGLOBIN 9.8 g/dl (12.5-16.0); MEAN CORPUSCULAR HEMOGLOBIN 31 pg (27.0-31.0)
[2019-05-18 06:44] LABS: PLATELET COUNT 49 K/mm3 (130-400)
[2019-05-18 06:47] LABS: TROPONIN-I 0.592 ng/mL (0.000-0.035)
[2019-05-18 07:35] LABS: BAND 10 % (0-10); EOSINOPHIL 3 % (0-4); LYMPHOCYTE 28 % (20.0-51.0); NEUTROPHILS 52 % (42.0-75.2)
[2019-05-18 07:36] LABS: HYPOCHROMIA 1+; PLATELET ESTIMATE DECREASED (NORMAL)
--- NOTE | 2019-05-18 07:53 | NUR ---
PT report given to Anne INFANTE at bedside. PT has been sleeping peacefully through the night and woke up each time this conventional underwriter entered room to make rounds. PT S.O at bedside. No s/s of distress noted and Pt denied pain at shift change. Iv infusing with no complications.
[2019-05-18 08:17] VITALS: BP 128/43; PULSE 76; TEMP 97.7
[2019-05-18 08:19] LABS: PATHOLOGY DIFF REVIEW OK
[2019-05-18 08:26] LABS: CHOLESTEROL RISK RATIO 5.5
[2019-05-18 12:05] VITALS: BP 127/49; PULSE 79; TEMP 98.4
[2019-05-18] MEDS ORDERED: OMNICEF 300MG300 MG PO (13:37)
--- NOTE | 2019-05-18 14:02 | NUR ---
Reported off to primary nurse,
--- NOTE | 2019-05-18 14:05 | NUR ---
Primary nurse was assisted with [phone] patient care by [employer] [facility] Isela Schwartz and [employer] instructor Yolanda Voss RN-.
--- NOTE | 2019-05-18 15:23 | NUR ---
Report rcvd from NARESH Villafana. Pt assessment completed. Pt caregiver had been upset with the Pharmacy keeping the pt's OTC medications. Pharmacy brought medications up to give to caregiver to take home. Pt is now being discharged home. Pt needs EMS to assisst with transfer into home. log chain worker spoken to, and no further concerns at this time.
--- NOTE | 2019-05-18 15:56 | NUR ---
The patient is to discharge back home with her roommate and caregiver today, 05/18, and resume private duty services from [facility]. The patient and caregiver requested that [facility] meet them at home to help get the patient in to the home. SW contacted [facility]. [facility] reports that they can meet patient and her caregiver at their home. No additional needs at this time.
== END 2019-05-18 16:25 | disposition home or self-care (01) | DRG 871 ==
LOC: COL.ER 05:46 → MEDICAL 07:29
PROVIDERS: Emergency Medicine; Nurse Practitioner Family; ADMIT Hospitalist
DX: A41.51 Sepsis due to Escherichia coli [E. coli] (principal); J96.01 Acute respiratory failure with hypoxia; I21.A1 Myocardial infarction type 2; N39.0 Urinary tract infection, site not specified; E11.22 Type 2 diabetes mellitus with diabetic chronic kidney disease; I12.9 Hypertensive chronic kidney disease with stage 1 through stage 4 chronic kidney disease, or unspecified chronic kidney disease; N18.3 Chronic kidney disease, stage 3 (moderate); E03.9 Hypothyroidism, unspecified; E78.5 Hyperlipidemia, unspecified; I25.10 Atherosclerotic heart disease of native coronary artery without angina pectoris; F32.9 Major depressive disorder, single episode, unspecified; K59.00 Constipation, unspecified; D69.6 Thrombocytopenia, unspecified; N32.81 Overactive bladder; R53.81 Other malaise; G31.84 Mild cognitive impairment of uncertain or unknown etiology; D50.0 Iron deficiency anemia secondary to blood loss (chronic); Z79.82 Long term (current) use of aspirin; Z95.818 Presence of other cardiac implants and grafts; Z90.710 Acquired absence of both cervix and uterus; Z86.73 Personal history of transient ischemic attack (TIA), and cerebral infarction without residual deficits; Z79.4 Long term (current) use of insulin
CPT/HCPCS: 99223-AI; 99239; A4216; J0696; J1650; J1815; J2405; J7030

== ENCOUNTER → 2019-08-29 | Emergency (ER) | payer MEDICARE, MEDICAID ==
[2008-12-11 01:54] VITALS: BP 172/82
[~2019-08-29] VITALS: Ht 172.7 cm; Wt 70.5 kg
[~2019-08-29] MED LIST changes: +OMNICEF 300MG300 MG PO; +TAB-A-VITE1 TA1 PO
[2019-08-29 17:12] VITALS: TEMP 98.7
[2019-08-29 17:53] LABS: BASO % 0.7 % (0.0-2.0); EOS # 0.2 (0.0-0.7); EOS % 4.1 % (0-4.0); GRAN % 55.7 % (42.2-75.2); HEMOGLOBIN 11.9 g/dl (12.5-16.0); LYMPH # 1.6 (1.2-3.4); LYMPH % 30.3 % (20.0-51.0); MEAN CELL VOLUME 89 fl (80.0-100.0); MEAN CORPUSCULAR HEMOGLOBIN 30 pg (27.0-31.0); MEAN CORPUSCULAR HGB CONC 34 g/dl (33.0-37.0); MEAN PLATELET VOLUME 10.7 fl (7.4-10.4); MONO # 0.5 (0.1-0.6); PLATELET COUNT 103 K/mm3 (130-400); RED BLOOD COUNT 3.96 M/mm3 (4.10-5.30); REDCELL DISTRIBUTION WIDTH-CV 12.2 % (11.5-14.5)
[2019-08-29 17:54] LABS: HEMATOCRIT 35.2 % (37.0-47.0)
[2019-08-29 18:05] LABS: ALANINE AMINOTRANSFERASE 24 U/L (4-34); ALBUMIN 3.5 gm/dL (3.5-5.0); ALKALINE PHOSPHATASE 86 U/L (50-136); ANION GAP 5 mmol/L (7-16); AST,SGOT 29 U/L (15-37); BILIRUBIN,TOTAL 0.4 mg/dL (0.0-1.0); BLOOD UREA NITROGEN 36 mg/dL (7-17); CARBON DIOXIDE 27 mmol/L (22-30); CHLORIDE 106 mmol/L (98-107); CREATININE, serum 1.53 (0.52-1.25); GLUCOSE 117 mg/dL (74-106); POTASSIUM 4.8 mmol/L (3.4-5.0); SODIUM 138 mmol/L (137-145)
[2019-08-29 18:06] LABS: C-REACTIVE PROTEIN < 0.5 mg/dL (0.0-0.9)
[2019-08-29 18:23] LABS: COLLECTION METHOD CLEAN CATCH
[2019-08-29 18:34] LABS: MUCOUS Present /lpf; SQUAMOUS EPITHELIAL 0-2 /hpf; URINE BACTERIA Many /hpf; URINE RBC 0-2 /hpf
[2019-08-29 18:54] LABS: PH 5 (5-8); URINE APPEARANCE Hazy; URINE BILIRUBIN Negative (NEGATIVE); URINE BLOOD Negative (NEGATIVE); URINE COLOR Yellow; URINE GLUCOSE Negative (NEGATIVE); URINE KETONE Negative (NEGATIVE); URINE LEUKOCYTE ESTERASE 3+ (NEGATIVE); URINE NITRATE Positive (NEGATIVE); URINE PROTEIN(semi-quant) 1+ (NEGATIVE); URINE UROBILINOGEN Negative (NEGATIVE)
[2019-08-29 19:13] VITALS: BP 156/68; PULSE 83
[2019-08-29 19:21] LABS: ERYTHROCYTE SEDIMENTATION RATE 22 mm/hr (0-30)
== END ==
LOC: COL.ER 17:08
PROVIDERS: Emergency Medicine
DX: R51 Headache (principal); N39.0 Urinary tract infection, site not specified; E11.22 Type 2 diabetes mellitus with diabetic chronic kidney disease; I12.9 Hypertensive chronic kidney disease with stage 1 through stage 4 chronic kidney disease, or unspecified chronic kidney disease; N18.9 Chronic kidney disease, unspecified; Z86.73 Personal history of transient ischemic attack (TIA), and cerebral infarction without residual deficits; Z79.02 Long term (current) use of antithrombotics/antiplatelets; Z79.4 Long term (current) use of insulin; Z79.82 Long term (current) use of aspirin
CPT/HCPCS: J0696; J2405; J3010; J7030

== ENCOUNTER 2019-09-08 15:32 | Emergency (ER) | payer MEDICARE, MEDICAID ==
[2008-12-11 01:54] VITALS: BP 172/82
[~2019-09-08] VITALS: Ht 172.7 cm; Wt 68.6 kg
[2019-09-08 15:36] VITALS: TEMP 98.5
[2019-09-08 15:40] VITALS: BP 156/67
[2019-09-08 16:02] LABS: BASO % 0.6 % (0.0-2.0); EOS # 0.2 (0.0-0.7); EOS % 3.9 % (0-4.0); GRAN # 2.8 (1.4-6.5); GRAN % 56.4 % (42.2-75.2); HEMATOCRIT 35.3 % (37.0-47.0); HEMOGLOBIN 11.9 g/dl (12.5-16.0); LYMPH # 1.6 (1.2-3.4); LYMPH % 31.7 % (20.0-51.0); MEAN CELL VOLUME 89 fl (80.0-100.0); MEAN CORPUSCULAR HEMOGLOBIN 30 pg (27.0-31.0); MEAN CORPUSCULAR HGB CONC 34 g/dl (33.0-37.0); MEAN PLATELET VOLUME 11.3 fl (7.4-10.4); MONO # 0.4 (0.1-0.6); MONO % 7.2 % (1.7-9.3); PLATELET COUNT 104 K/mm3 (130-400); RED BLOOD COUNT 3.95 M/mm3 (4.10-5.30); REDCELL DISTRIBUTION WIDTH-CV 12.4 % (11.5-14.5)
[2019-09-08 16:10] LABS: ALBUMIN 3.6 gm/dL (3.5-5.0); BILIRUBIN,TOTAL 0.5 mg/dL (0.0-1.0); CALCIUM 8.6 mg/dL (8.4-10.2); CREATININE, serum 1.49 (0.52-1.25); POTASSIUM 4.3 mmol/L (3.4-5.0)
[2019-09-08 16:31] LABS: ERYTHROCYTE SEDIMENTATION RATE 20 mm/hr (0-30)
[2019-09-08 17:15] LABS: COLLECTION METHOD CLEAN CATCH
[2019-09-08 17:20] LABS: PH 6 (5-8); SQUAMOUS EPITHELIAL 0-2 /hpf; URINE APPEARANCE Clear; URINE BACTERIA None Seen /hpf; URINE BILIRUBIN Negative (NEGATIVE); URINE BLOOD Negative (NEGATIVE); URINE COLOR Yellow; URINE GLUCOSE Negative (NEGATIVE); URINE KETONE Negative (NEGATIVE); URINE LEUKOCYTE ESTERASE Negative (NEGATIVE); URINE NITRATE Negative (NEGATIVE); URINE PROTEIN(semi-quant) 1+ (NEGATIVE); URINE RBC None Seen /hpf; URINE UROBILINOGEN Negative (NEGATIVE); URINE WBC 0-2 /hpf
[2019-09-08 18:55] VITALS: PULSE 56
== END 2019-09-08 18:55 | disposition home or self-care (01) ==
LOC: COL.ER 15:32
PROVIDERS: Emergency Medicine
DX: R51 Headache (principal); H54.8 Legal blindness, as defined in USA; E78.5 Hyperlipidemia, unspecified; E11.22 Type 2 diabetes mellitus with diabetic chronic kidney disease; I12.9 Hypertensive chronic kidney disease with stage 1 through stage 4 chronic kidney disease, or unspecified chronic kidney disease; N18.9 Chronic kidney disease, unspecified; D63.1 Anemia in chronic kidney disease; F32.9 Major depressive disorder, single episode, unspecified; Z79.02 Long term (current) use of antithrombotics/antiplatelets; Z79.4 Long term (current) use of insulin; Z79.82 Long term (current) use of aspirin; Z86.73 Personal history of transient ischemic attack (TIA), and cerebral infarction without residual deficits
CPT/HCPCS: J0780; J1200; J7030

== ENCOUNTER → 2019-09-19 | Outpatient (CLI) | payer MEDICARE, MEDICAID | LOC: COL.RAD 13:05 | DX: I63.9 Cerebral infarction, unspecified (principal) | CPT/HCPCS: A9585 ==

== ENCOUNTER 2019-10-08 06:17 | Emergency (ER) | payer MEDICARE, MEDICAID ==
[2008-12-11 01:54] VITALS: BP 172/82
[~2019-10-08] VITALS: Ht 172.7 cm; Wt 70.5 kg
[2019-10-08 06:20] VITALS: TEMP 98.4
[2019-10-08] MEDS ORDERED: TAB-A-VITE1 TA1 PO (06:31)
[2019-10-08] MEDS ORDERED: PROTONIX20 MG PO (06:33)
[2019-10-08] MEDS ORDERED: PROBIOTIC-SUNMARK (06:34)
[2019-10-08] MEDS ORDERED: NATURAL E400 IU PO (06:37)
[2019-10-08] MEDS ORDERED: ALLEGRA 60MG TA60 MG PO (06:39)
[2019-10-08] MEDS ORDERED: ANUSOL HC CREAM30 GM TP (07:14)
[2019-10-08 07:19] LABS: ALANINE AMINOTRANSFERASE 28 U/L (4-34); ALBUMIN 3.8 gm/dL (3.5-5.0); ALKALINE PHOSPHATASE 94 U/L (50-136); ANION GAP 6 mmol/L (7-16); AST,SGOT 65 U/L (15-37); BILIRUBIN,TOTAL 0.4 mg/dL (0.0-1.0); BLOOD UREA NITROGEN 34 mg/dL (7-17); CALCIUM 8.8 mg/dL (8.4-10.2); CARBON DIOXIDE 26 mmol/L (22-30); CHLORIDE 107 mmol/L (98-107); CREATININE, serum 1.61 (0.52-1.25); GLUCOSE 182 mg/dL (74-106); LIPASE 74 U/L (23-300); POTASSIUM 4.5 mmol/L (3.4-5.0); SODIUM 138 mmol/L (137-145); TOTAL PROTEIN 7.3 gm/dL (6.4-8.2)
[2019-10-08] MEDS ORDERED: BASAGLAR K100 UNIT/1 SQ (07:20)
[2019-10-08 07:24] LABS: BASO % 0.4 % (0.0-2.0); EOS # 0.3 (0.0-0.7); EOS % 3.3 % (0-4.0); GRAN # 7.4 (1.4-6.5); GRAN % 77.7 % (42.2-75.2); HEMOGLOBIN 12.6 g/dl (12.5-16.0); LYMPH # 1.2 (1.2-3.4); LYMPH % 13.1 % (20.0-51.0); MEAN CELL VOLUME 90 fl (80.0-100.0); MEAN CORPUSCULAR HEMOGLOBIN 31 pg (27.0-31.0); MEAN CORPUSCULAR HGB CONC 34 g/dl (33.0-37.0); MEAN PLATELET VOLUME 11.6 fl (7.4-10.4); MONO # 0.5 (0.1-0.6); MONO % 5.2 % (1.7-9.3); PLATELET COUNT 117 K/mm3 (130-400); REDCELL DISTRIBUTION WIDTH-CV 12.8 % (11.5-14.5)
[2019-10-08 07:26] LABS: HEMATOCRIT 36.8 % (37.0-47.0)
[2019-10-08 07:37] LABS: C-REACTIVE PROTEIN < 0.5 mg/dL (0.0-0.9)
[2019-10-08 08:06] VITALS: BP 145/72; PULSE 90
== END 2019-10-08 09:27 | disposition home or self-care (01) ==
LOC: COL.ER 06:17
PROVIDERS: Emergency Medicine
DX: K56.41 Fecal impaction (principal); D69.6 Thrombocytopenia, unspecified; E11.22 Type 2 diabetes mellitus with diabetic chronic kidney disease; I12.9 Hypertensive chronic kidney disease with stage 1 through stage 4 chronic kidney disease, or unspecified chronic kidney disease; N18.9 Chronic kidney disease, unspecified; Z90.710 Acquired absence of both cervix and uterus; Z95.9 Presence of cardiac and vascular implant and graft, unspecified; Z79.02 Long term (current) use of antithrombotics/antiplatelets; Z79.82 Long term (current) use of aspirin; Z79.4 Long term (current) use of insulin
CPT/HCPCS: J2060; J7040

== ENCOUNTER → 2019-10-26 | Outpatient (CLI) | payer MEDICARE, MEDICAID ==
[~2019-10-26] MED LIST changes: +ALLEGRA 60MG TA60 MG PO; +ANUSOL HC CREAM30 GM TP; +BASAGLAR K100 UNIT/1 SQ; +PROBIOTIC-SUNMARK; +PROTONIX20 MG PO
== END ==
LOC: COL.RAD 11:00
DX: I65.21 Occlusion and stenosis of right carotid artery (principal); I67.1 Cerebral aneurysm, nonruptured; N18.3 Chronic kidney disease, stage 3 (moderate)
CPT/HCPCS: Q9967

== ENCOUNTER 2019-11-08 09:35 | Outpatient (CLI) | payer MEDICARE, MEDICAID ==
[2008-12-11 01:54] VITALS: BP 172/82
[2019-11-08 09:20] VITALS: BP 137/63; PULSE 65; TEMP 98.6
[2019-11-08 10:27] LABS: HEMOGLOBIN 11.6 g/dl (12.5-16.0); INR 1.1 (0.8-3.0); MEAN CELL VOLUME 91 fl (80.0-100.0); MEAN CORPUSCULAR HEMOGLOBIN 31 pg (27.0-31.0); MEAN CORPUSCULAR HGB CONC 34 g/dl (33.0-37.0); MEAN PLATELET VOLUME 11.2 fl (7.4-10.4); PLATELET COUNT 104 K/mm3 (130-400); PROTHROMBIN TIME 11.9 SECONDS (9.7-12.8); REDCELL DISTRIBUTION WIDTH-CV 12.8 % (11.5-14.5)
[2019-11-08 10:31] LABS: ALBUMIN 3.7 gm/dL (3.5-5.0); BILIRUBIN,TOTAL 0.4 mg/dL (0.0-1.0); CALCIUM 8.8 mg/dL (8.4-10.2); CREATININE, serum 1.53 (0.52-1.25); MAGNESIUM 2.2 mg/dL (1.6-2.3); POTASSIUM 4.7 mmol/L (3.4-5.0)
[2019-11-08 10:35] LABS: HEMATOCRIT 34.4 % (37.0-47.0)
[2019-11-08 11:25] VITALS: BP 154/73; PULSE 88
[2019-11-08 11:35] VITALS: BP 153/74; PULSE 87
[2019-11-08 11:50] VITALS: BP 146/71; PULSE 89
[2019-11-08 12:05] VITALS: BP 139/75; PULSE 92
--- NOTE | 2019-11-08 12:50 | NUR ---
Pt is ready for departure at this time. She has recovered well from her ben, Dr. Samaniego has been back in to speak with pt and her POA stephanie. Pt is awake and alert, she has been up to BR with assistance x 2, and has been able to drink with no problem. pt and POA verbalized understanding of dc/fu instructions and deny any questions at this time. IV was dc'd with cath to exit via wheelchair.
== END 2019-11-08 16:43 | disposition home or self-care (01) ==
LOC: COL.CAR 09:35
PROVIDERS: Internal Medicine Cardiovascular Disease
DX: I08.1 Rheumatic disorders of both mitral and tricuspid valves (principal); Z86.73 Personal history of transient ischemic attack (TIA), and cerebral infarction without residual deficits; I13.0 Hypertensive heart and chronic kidney disease with heart failure and stage 1 through stage 4 chronic kidney disease, or unspecified chronic kidney disease; E11.22 Type 2 diabetes mellitus with diabetic chronic kidney disease; E78.5 Hyperlipidemia, unspecified; N18.3 Chronic kidney disease, stage 3 (moderate); D63.1 Anemia in chronic kidney disease; I25.2 Old myocardial infarction; E11.39 Type 2 diabetes mellitus with other diabetic ophthalmic complication; I25.10 Atherosclerotic heart disease of native coronary artery without angina pectoris; I65.29 Occlusion and stenosis of unspecified carotid artery; Z88.1 Allergy status to other antibiotic agents; Z88.0 Allergy status to penicillin; Z88.2 Allergy status to sulfonamides; Z79.82 Long term (current) use of aspirin; Z79.4 Long term (current) use of insulin; I50.9 Heart failure, unspecified; F32.9 Major depressive disorder, single episode, unspecified; F03.90 Unspecified dementia, unspecified severity, without behavioral disturbance, psychotic disturbance, mood disturbance, and anxiety; E03.9 Hypothyroidism, unspecified
CPT/HCPCS: J2704

== ENCOUNTER 2019-12-12 18:15 | Emergency (ER) | payer MEDICARE, MEDICAID ==
[2008-12-11 01:54] VITALS: BP 172/82
[~2019-12-12] VITALS: Ht 172.7 cm; Wt 65.0 kg
[2019-12-12 18:22] VITALS: TEMP 98.4
[2019-12-12 19:45] VITALS: BP 145/61; PULSE 67
== END 2019-12-12 19:51 | disposition home or self-care (01) ==
LOC: COL.ER 18:15
DX: R51 Headache (principal); I12.9 Hypertensive chronic kidney disease with stage 1 through stage 4 chronic kidney disease, or unspecified chronic kidney disease; N18.9 Chronic kidney disease, unspecified; Z86.73 Personal history of transient ischemic attack (TIA), and cerebral infarction without residual deficits; Z79.4 Long term (current) use of insulin; Z79.02 Long term (current) use of antithrombotics/antiplatelets; Z79.890 Hormone replacement therapy
CPT/HCPCS: J1170; J1200; J2765

== ENCOUNTER 2020-01-03 03:34 | Emergency (ER) | payer MEDICARE, MEDICAID ==
[2008-12-11 01:54] VITALS: BP 172/82
[~2020-01-03] VITALS: Ht 172.7 cm; Wt 65.0 kg
[2020-01-03 03:35] VITALS: TEMP 96.9
[2020-01-03 04:26] LABS: BASO # 0.1 (0.0-0.2); BASO % 0.5 % (0.0-2.0); EOS # 0.3 (0.0-0.7); EOS % 3.1 % (0-4.0); GRAN # 7.8 (1.4-6.5); GRAN % 75.1 % (42.2-75.2); HEMOGLOBIN 12.6 g/dl (12.5-16.0); LYMPH # 1.6 (1.2-3.4); LYMPH % 15.8 % (20.0-51.0); MEAN CELL VOLUME 91 fl (80.0-100.0); MEAN CORPUSCULAR HEMOGLOBIN 31 pg (27.0-31.0); MEAN CORPUSCULAR HGB CONC 34 g/dl (33.0-37.0); MEAN PLATELET VOLUME 11.8 fl (7.4-10.4); MONO # 0.5 (0.1-0.6); MONO % 5.1 % (1.7-9.3); PLATELET COUNT 101 K/mm3 (130-400); RED BLOOD COUNT 4.06 M/mm3 (4.10-5.30); REDCELL DISTRIBUTION WIDTH-CV 12.4 % (11.5-14.5)
[2020-01-03 04:40] LABS: ALANINE AMINOTRANSFERASE 23 U/L (4-34); ALKALINE PHOSPHATASE 82 U/L (50-136); ANION GAP 13 mmol/L (7-16); AST,SGOT 34 U/L (15-37); BILIRUBIN,TOTAL 0.4 mg/dL (0.0-1.0); BLOOD UREA NITROGEN 41 mg/dL (7-17); CARBON DIOXIDE 22 mmol/L (22-30); CHLORIDE 109 mmol/L (98-107); CREATINE KINASE 55 U/L (30-135); CREATININE, serum 1.79 (0.52-1.25); GLUCOSE 136 mg/dL (74-106); LIPASE 59 U/L (23-300); MAGNESIUM 2.1 mg/dL (1.6-2.3); POTASSIUM 4.4 mmol/L (3.4-5.0); SODIUM 143 mmol/L (137-145); TOTAL PROTEIN 7.3 gm/dL (6.4-8.2)
[2020-01-03 04:42] LABS: C-REACTIVE PROTEIN < 0.5 mg/dL (0.0-0.9)
[2020-01-03 10:23] VITALS: BP 116/61; PULSE 93
== END 2020-01-03 10:55 | disposition home or self-care (01) ==
LOC: COL.ER 03:34
PROVIDERS: Emergency Medicine
DX: R19.7 Diarrhea, unspecified (principal); E11.9 Type 2 diabetes mellitus without complications; I10 Essential (primary) hypertension; E78.5 Hyperlipidemia, unspecified; I13.10 Hypertensive heart and chronic kidney disease without heart failure, with stage 1 through stage 4 chronic kidney disease, or unspecified chronic kidney disease; N18.30 Chronic kidney disease, stage 3 unspecified; I25.10 Atherosclerotic heart disease of native coronary artery without angina pectoris; E03.9 Hypothyroidism, unspecified; H54.8 Legal blindness, as defined in USA; Z86.73 Personal history of transient ischemic attack (TIA), and cerebral infarction without residual deficits; Z90.710 Acquired absence of both cervix and uterus; Z79.4 Long term (current) use of insulin; Z88.2 Allergy status to sulfonamides; Z88.1 Allergy status to other antibiotic agents; Z88.6 Allergy status to analgesic agent; Z79.02 Long term (current) use of antithrombotics/antiplatelets; Z79.82 Long term (current) use of aspirin
CPT/HCPCS: J2405; J7030

== ENCOUNTER 2020-03-14 08:14 | Day surgery (SDC) | payer MEDICARE, MEDICAID ==
[2008-12-11 01:54] VITALS: BP 172/82
[~2020-03-14] VITALS: Ht 172.7 cm; Wt 65.0 kg
[2020-03-14] MEDS ORDERED: NATURAL E400 IU PO (09:01)
[2020-03-14] MEDS ORDERED: PROBIOTIC FORMU1 CAP PO (09:01)
[2020-03-14] MEDS ORDERED: SYNTHROID 0.10.15 MG PO (09:05)
[2020-03-14] MEDS ORDERED: COREG12.5 MG PO (09:06)
[2020-03-14 09:10] VITALS: BP 163/60; PULSE 62; TEMP 98.4
[2020-03-14 09:55] VITALS: BP 134/52; PULSE 74; TEMP 97.9
--- NOTE | 2020-03-14 09:55 | NUR ---
Patient arrives to Endo bay 3 via cart, accompanied by Endo RN Sherry. She is alert and oriented. She is lying on her cart. She requests to sleep. Monitoring is applied- VSS and WNL on room air. Lights are dimmed for comfort.
[2020-03-14 10:10] VITALS: BP 126/43; PULSE 76
--- NOTE | 2020-03-14 10:10 | NUR ---
Patient is more awake. She requests to sit up and have some water. Staff boosts her in bed and raises HOB. She sips water with staff assistance. Tolerating PO well.
[2020-03-14 10:25] VITALS: BP 142/52; PULSE 80
--- NOTE | 2020-03-14 10:25 | NUR ---
Dr. Chand comes to the bedside and speaks with the patient. VSS on room air.
--- NOTE | 2020-03-14 10:48 | NUR ---
Patient has met discharge criteria. PIV is removed with catheter intact and hemostasis achieved. Staff assists her to change to her clothing and transfer to her wheelchair. She is escorted to the exit via wheelchair by staff. Her caregiver/DPOA is at the exit and discharge instructions are discussed with her and the patient. She is discharged to home with ride in private vehicle at 1048.
== END 2020-03-14 10:48 | disposition home or self-care (01) ==
LOC: SDCO 08:14
DX: K52.9 Noninfective gastroenteritis and colitis, unspecified (principal); F64.9 Gender identity disorder, unspecified; E11.9 Type 2 diabetes mellitus without complications; F32.9 Major depressive disorder, single episode, unspecified; F41.9 Anxiety disorder, unspecified; I25.10 Atherosclerotic heart disease of native coronary artery without angina pectoris; I25.2 Old myocardial infarction; E78.5 Hyperlipidemia, unspecified; I13.2 Hypertensive heart and chronic kidney disease with heart failure and with stage 5 chronic kidney disease, or end stage renal disease; I50.9 Heart failure, unspecified; K21.9 Gastro-esophageal reflux disease without esophagitis; N18.30 Chronic kidney disease, stage 3 unspecified; D63.1 Anemia in chronic kidney disease; Z20.828 Contact with and (suspected) exposure to other viral communicable diseases; Z88.0 Allergy status to penicillin; Z88.2 Allergy status to sulfonamides; Z79.82 Long term (current) use of aspirin; Z88.1 Allergy status to other antibiotic agents; Z86.73 Personal history of transient ischemic attack (TIA), and cerebral infarction without residual deficits; Z90.710 Acquired absence of both cervix and uterus
CPT/HCPCS: J2704; J7030

== ENCOUNTER → 2020-04-16 | Outpatient (CLI) | payer MEDICARE, MEDICAID ==
[~2020-04-16] MED LIST changes: +COREG12.5 MG PO; +PROBIOTIC FORMU1 CAP PO
== END ==
LOC: MHCPAIN 10:44
DX: M54.81 Occipital neuralgia (principal); R51.9 Headache, unspecified; G89.29 Other chronic pain
CPT/HCPCS: G0463; J1040

== ENCOUNTER 2021-01-11 09:21 | Emergency (ER) | payer MEDICARE, MEDICAID ==
[~2021-01-11] VITALS: Ht 172.7 cm; Wt 70.5 kg
[2021-01-11 09:27] VITALS: TEMP 98.2
[2021-01-11] MEDS ORDERED: TYLENOL W/COD1 UDTAB PO (11:48)
[2021-01-11 12:15] VITALS: BP 140/59; PULSE 81
== END 2021-01-11 11:45 | disposition home or self-care (01) ==
LOC: COL.ER 09:21
DX: S82.851A Displaced trimalleolar fracture of right lower leg, initial encounter for closed fracture (principal); E11.22 Type 2 diabetes mellitus with diabetic chronic kidney disease; I12.9 Hypertensive chronic kidney disease with stage 1 through stage 4 chronic kidney disease, or unspecified chronic kidney disease; N18.30 Chronic kidney disease, stage 3 unspecified; D63.1 Anemia in chronic kidney disease; E78.5 Hyperlipidemia, unspecified; I25.10 Atherosclerotic heart disease of native coronary artery without angina pectoris; E03.9 Hypothyroidism, unspecified; Z79.02 Long term (current) use of antithrombotics/antiplatelets; Z79.82 Long term (current) use of aspirin; Z79.4 Long term (current) use of insulin; Z79.890 Hormone replacement therapy; Z79.899 Other long term (current) drug therapy; W18.30XA Fall on same level, unspecified, initial encounter; Y92.091 Bathroom in other non-institutional residence as the place of occurrence of the external cause

== ENCOUNTER 2021-02-05 16:51 | Inpatient (IN) | payer MEDICARE, MEDICAID ==
[~2021-02-05] VITALS: Wt 68.2 kg
[2021-02-05 17:39] LABS: BASO % 0.5 % (0.0-2.0); EOS # 0.3 K/mm3 (0.0-0.7); GRAN # 6.7 K/mm3 (1.4-6.5); GRAN % 77.2 % (42.2-75.2); HEMATOCRIT 32.5 % (37.0-47.0); HEMOGLOBIN 10.8 g/dl (12.5-16.0); LYMPH # 1.1 K/mm3 (1.2-3.4); LYMPH % 12.8 % (20.0-51.0); MEAN CELL VOLUME 87 fl (80.0-100.0); MEAN CORPUSCULAR HEMOGLOBIN 29 pg (27.0-31.0); MEAN CORPUSCULAR HGB CONC 33 g/dl (33.0-37.0); MEAN PLATELET VOLUME 11.6 fl (7.4-10.4); MONO # 0.5 K/mm3 (0.1-0.6); PLATELET COUNT 175 K/mm3 (130-400); RED BLOOD COUNT 3.74 M/mm3 (4.10-5.30); REDCELL DISTRIBUTION WIDTH-CV 12.7 % (11.5-14.5)
[2021-02-05 17:56] LABS: ALBUMIN 2.7 gm/dL (3.4-4.8); BILIRUBIN,TOTAL 0.3 mg/dL (0.2-1.2); C-REACTIVE PROTEIN 2.77 mg/dL (0.00-0.50); CALCIUM 8.6 mg/dL (8.4-10.2); CREATININE, serum 1.48 mg/dL (0.57-1.11); POTASSIUM 4.8 mmol/L (3.5-4.5); TOTAL PROTEIN 6.9 gm/dL (6.2-8.1)
--- NOTE | 2021-02-05 20:45 | NUR ---
ADMITTED PER BED FROM ER TO ROOM 342. PT BLIND. PT INCONTINENT OF URIE IN ADULT DIAPERS. CHANGED AT THIS TIME. NO WOUNDS TO COCCYX. FLOATED HEELS ON TWO PILLOWS. OPEN WOUND TO RT HEEL NOTED- NO DRAINAGE. LT HEEL HAS CLOSED WOUND.
[2021-02-05 21:03] VITALS: BP 141/71; PULSE 72; TEMP 98.3
--- NOTE | 2021-02-05 22:00 | NUR ---
WOUND CULTURE OF RT HEEL OBTAINED AND SENT TO LAB.
--- NOTE | 2021-02-05 22:40 | NUR ---
Vancomycin Initial Dosing Pharmacy Note Ordering provider: Casey Waldrop MD Indication/duration: Osteomyelitis x 7 days Relevant comorbidities: CKD, DM LABS: WBC = 8.7, SCr = 1.48 Recommendation: Will draw troughs and follow levels. Loading dose: 1.25 grams Maintenance dose: 1 gram every 24 hours Trough goal: 15-20 ug/mL
[2021-02-06] VITALS (7 sets, daily range): BP systolic 139–171; BP diastolic 48–61; PULSE 66–79; TEMP 97.6–98.6
--- NOTE | 2021-02-06 00:05 | NUR ---
PT REQUESTED BRAXTON. PT INCONTINENT OF URINE. ORDER OBTAINED FROM ROSITA POE.
--- NOTE | 2021-02-06 00:55 | NUR ---
#16FR FOLET INSERTED TO BLADDER WITH IMMEDIATE RETURN OF HAZY YELLOW RETURN. UA OBTAINED AND SENT TO LAB.
[2021-02-06 00:56] LABS: COLLECTION METHOD CATHETER
[2021-02-06 01:03] LABS: BUDDING YEAST Present /hpf; MUCOUS Present /lpf; PH 5 (5-8); SQUAMOUS EPITHELIAL 0-2 /hpf; URINE APPEARANCE Cloudy; URINE BACTERIA Rare /hpf; URINE BILIRUBIN Negative (NEGATIVE); URINE BLOOD Negative (NEGATIVE); URINE COLOR Yellow; URINE GLUCOSE Negative (NEGATIVE); URINE KETONE Negative (NEGATIVE); URINE LEUKOCYTE ESTERASE 3+ (NEGATIVE); URINE NITRATE Positive (NEGATIVE); URINE PROTEIN(semi-quant) 2+ (NEGATIVE); URINE UROBILINOGEN Negative (NEGATIVE)
--- NOTE | 2021-02-06 06:13 | NUR ---
PT RESTING. NO DISTRESS.
[2021-02-06 06:20] LABS: BASO % 0.4 % (0.0-2.0); EOS # 0.4 K/mm3 (0.0-0.7); EOS % 5.5 % (0-4.0); GRAN # 4.7 K/mm3 (1.4-6.5); GRAN % 64.4 % (42.2-75.2); LYMPH # 1.4 K/mm3 (1.2-3.4); LYMPH % 19.8 % (20.0-51.0); MEAN CELL VOLUME 88 fl (80.0-100.0); MEAN CORPUSCULAR HEMOGLOBIN 29 pg (27.0-31.0); MEAN CORPUSCULAR HGB CONC 33 g/dl (33.0-37.0); MEAN PLATELET VOLUME 11.4 fl (7.4-10.4); MONO # 0.7 K/mm3 (0.1-0.6); MONO % 9.5 % (1.7-9.3); PLATELET COUNT 162 K/mm3 (130-400); RED BLOOD COUNT 3.46 M/mm3 (4.10-5.30)
[2021-02-06 06:26] LABS: HEMATOCRIT 30.6 % (37.0-47.0)
[2021-02-06 06:40] LABS: CREATININE, serum 1.3 mg/dL (0.57-1.11); POTASSIUM 3.7 mmol/L (3.5-4.5)
--- NOTE | 2021-02-06 08:19 | NUR ---
This student had floor nurse KRISS RN come verify that pt did not want to take PO meds without breakfast. We infomred pt when doctor comes to talk with pt about NPO status and further tx.
--- NOTE | 2021-02-06 08:49 | NUR ---
Pt resting in bed. This student asked if ADLs could be performed ex: washing face, respositioning. Pt declined and she also gave home number of her partner if other number was not answered. Home phone of partner-
--- NOTE | 2021-02-06 10:28 | NUR ---
SW met with the patient to discuss discharge plan. The patient is legally blinde. The patient lives with her friend, Valerie Mera (ph#[phone]), in [place]. She reports needing assistance with ADLs and has a walker and wheelchair. She states that she primarily uses the wheelchair and that she has private duty caregivers [facility] Tuesday-Tuesday. She reports that Karely is also always home and that whoever is at home, is able to help her with her ADLs. The patient's PCP is Dr. Maryan Fernandez and she receives her medications from [facility]. The patient's DPOA-HC is in EMR and it designates her friend, Valerie. The patient plans to return home with Valerie and resume services from [address] [place] [address]. The patient is currently requiring IV antibiotics. SW to continue to monitor. MAXIM attempted to contact the patient's friend/DPOA-HC, Valerie, to review the above. SW left him a voicemail. *Discharge plan: home with friend and private duty caregivers*
--- NOTE | 2021-02-06 11:22 | NUR ---
The patient's friend/DPOA-HC, Valerie, arrived to the hospital. MAXIM met with the patient and Valerie to review discharge plan. Valerie confirms that the patient has services through [address] [place] [address]. She reports that they have four workers that rotate care. She reports that they also have a lift at home. Due to the patient's wound on her heel, she reports that they will probably be interested in SNF upon discharge. The patient chose 1) [facility] 2) [facility]. Valerie reports that the patient has been to [facility] and [facility] in the past. She reports that [facility] has also accepted the patient in the past too. MAXIM contacted and faxed a referral to [facility] and [facility]. Awaiting screens. *Discharge plan: SNF*
--- NOTE | 2021-02-06 11:46 | NUR ---
Edilia, at [facility], reports that they have to decline the patient; due to her previous stay with them.
--- NOTE | 2021-02-06 19:30 | NUR ---
EVENING MEAL HERE. ASSISTED PT WITH EATING PT IS BLIND.
[2021-02-07 03:22] VITALS: BP 150/53; PULSE 70; TEMP 98.4
--- NOTE | 2021-02-07 07:02 | NUR ---
Report received by NARESH Kingston. Patient is up and in the bathroom. Call light and bedside table are within reach of patient. Will continue to monitor patient throughout shift.
[2021-02-07 08:51] VITALS: BP 139/50; PULSE 76; TEMP 98.1
--- NOTE | 2021-02-07 09:40 | NUR ---
Patient refused to take medications this morning because she does not eat breakfast but would take them at lunch.
[2021-02-07 13:11] VITALS: BP 147/54; PULSE 77; TEMP 98.4
[2021-02-07 19:16] VITALS: BP 129/51; PULSE 72; TEMP 98.7
--- NOTE | 2021-02-07 20:54 | NUR ---
PT RESTING IN BED. DENIES PAIN. REFUSES SCD'S. FEET FLOATED ON PILLOWS. PT BLIND. ORIENTED AND PLEASANT.
[2021-02-07 23:12] VITALS: BP 139/50; PULSE 70; TEMP 98.6
[2021-02-08 03:29] VITALS: BP 151/54; PULSE 70; TEMP 98.1
--- NOTE | 2021-02-08 06:48 | NUR ---
Report given by NARESH Wells. Patient is sleeping in bed. Call light and bedside table are within reach. Will continue to monitor patient throughout shift.
[2021-02-08 07:00] VITALS: BP 151/56; PULSE 70; TEMP 97.8
--- NOTE | 2021-02-08 08:27 | NUR ---
Patient refused to take morning medication because she does not eat breakfast. Patient stated she will take medications at lunch with her meal.
[2021-02-08 11:04] VITALS: BP 150/53; PULSE 71; TEMP 98.6
[2021-02-08 15:26] VITALS: BP 152/60; PULSE 75; TEMP 99
[2021-02-08 19:50] VITALS: BP 147/58; PULSE 84; TEMP 97.6
--- NOTE | 2021-02-08 21:00 | NUR ---
PT RESTING IN BED. NO PAIN AT THIS TIME. SPLINT INTACT TO RLE. ELEVATED ON PILLOWS. CALL LIGHT IN REACH. COLACE GIVEN FOR CONSTIPATION. HAD MIRALAX TODAY. PASSING FLATUS.
[2021-02-09 00:04] VITALS: BP 141/51; PULSE 107; TEMP 98.7
[2021-02-09 03:51] VITALS: BP 132/56; PULSE 69; TEMP 98.6
--- NOTE | 2021-02-09 03:52 | NUR ---
BLISTER NOTED TO RT SUPERIOR MEDIAL THIGH. GAUZE APPLIED.
[2021-02-09 05:14] LABS: BASO # 0.1 K/mm3 (0.0-0.2); BASO % 0.8 % (0.0-2.0); EOS # 0.6 K/mm3 (0.0-0.7); EOS % 7.1 % (0-4.0); GRAN # 5.2 K/mm3 (1.4-6.5); HEMOGLOBIN 10.6 g/dl (12.5-16.0); LYMPH # 1.4 K/mm3 (1.2-3.4); LYMPH % 17.9 % (20.0-51.0); MEAN CELL VOLUME 85 fl (80.0-100.0); MEAN CORPUSCULAR HEMOGLOBIN 29 pg (27.0-31.0); MEAN CORPUSCULAR HGB CONC 33 g/dl (33.0-37.0); MONO # 0.7 K/mm3 (0.1-0.6); MONO % 8.8 % (1.7-9.3); PLATELET COUNT 164 K/mm3 (130-400); RED BLOOD COUNT 3.72 M/mm3 (4.10-5.30); REDCELL DISTRIBUTION WIDTH-CV 12.8 % (11.5-14.5)
[2021-02-09 05:17] LABS: HEMATOCRIT 31.7 % (37.0-47.0)
[2021-02-09 05:34] LABS: CALCIUM 8.9 mg/dL (8.4-10.2); CREATININE, serum 1.49 mg/dL (0.57-1.11); MAGNESIUM 1.6 mg/dL (1.6-2.6); POTASSIUM 3.9 mmol/L (3.5-4.5)
[2021-02-09 08:00] VITALS: BP 150/51; PULSE 75; TEMP 98.1
[2021-02-09 11:33] VITALS: BP 129/46; PULSE 71; TEMP 98
[2021-02-09 16:00] VITALS: BP 125/47; PULSE 71; TEMP 98.4
--- NOTE | 2021-02-09 16:28 | NUR ---
MAXIM contacted and faxed updates to Marion at [facility]. Marion reports that they are following the patient, they will need to know what antibiotics the patient will need upon discharge. MAXIM notified the clinical team. They are awaiting ID's recs. MAXIM met with the patient and her DPOA-HC to update. The patient and her DPOA-HC appeared upset that [facility] cannot take, but they would still like to pursue with SNF at [facility] upon discharge.
[2021-02-09 20:00] VITALS: BP 140/79; PULSE 70; TEMP 98.8
[2021-02-10 04:00] VITALS: BP 170/63; PULSE 84; TEMP 98.8
--- NOTE | 2021-02-10 06:51 | NUR ---
pt transferred to OR per bed for procedure, IVF infusing per PIV, pt had sm bm prior to transport, cleaned and changed per RN and HAND BOX COVERER.
[2021-02-10 07:05] LABS: BASO % 0.6 % (0.0-2.0); EOS # 0.5 K/mm3 (0.0-0.7); EOS % 10.4 % (0-4.0); GRAN # 3.3 K/mm3 (1.4-6.5); GRAN % 63.1 % (42.2-75.2); LYMPH # 0.9 K/mm3 (1.2-3.4); LYMPH % 16.7 % (20.0-51.0); MEAN CELL VOLUME 87 fl (80.0-100.0); MEAN CORPUSCULAR HGB CONC 33 g/dl (33.0-37.0); MEAN PLATELET VOLUME 11.8 fl (7.4-10.4); MONO # 0.5 K/mm3 (0.1-0.6); MONO % 8.8 % (1.7-9.3); PLATELET COUNT 124 K/mm3 (130-400); RED BLOOD COUNT 3.29 M/mm3 (4.10-5.30); REDCELL DISTRIBUTION WIDTH-CV 12.8 % (11.5-14.5)
[2021-02-10 07:08] LABS: HEMOGLOBIN 9.6 g/dl (12.5-16.0); MEAN CORPUSCULAR HEMOGLOBIN 29 pg (27.0-31.0)
[2021-02-10 07:09] LABS: HEMATOCRIT 28.7 % (37.0-47.0)
[2021-02-10 07:21] LABS: CREATININE, serum 1.31 mg/dL (0.57-1.11); MAGNESIUM 1.7 mg/dL (1.6-2.6); POTASSIUM 3.9 mmol/L (3.5-4.5)
[2021-02-10 08:00] VITALS: BP 129/52; PULSE 77; TEMP 99.1
--- NOTE | 2021-02-10 11:03 | NUR ---
PT REFUSED MORNING MEDS AND BREAKFAST AND WANTS TO TAKE HER MEDS AT NOON
[2021-02-10 11:23] VITALS: BP 146/55; PULSE 79; TEMP 98.6
[2021-02-10] MEDS ORDERED: ROCEPHIN VIA1 G/VIAL IV ×2 (14:32)
[2021-02-10] MEDS ORDERED: VANCOCIN HCL1 GM IV ×2 (14:34)
[2021-02-10] MEDS ORDERED: FLAGYL500 MG PO (14:35)
[2021-02-10] MEDS ORDERED: MYRBETR50MG PO (14:36)
[2021-02-10] MEDS ORDERED: SYNTHROID 0.10.15 MG PO (14:36)
[2021-02-10] MEDS ORDERED: NATURAL E400 IU PO (14:36)
[2021-02-10] MEDS ORDERED: BASAGLAR K100 UNIT/1 SQ (14:37)
[2021-02-10] MEDS ORDERED: PROBIOTIC-MAJOR PO (14:37)
[2021-02-10] MEDS ORDERED: PROTONIX20 MG PO (14:38)
[2021-02-10] MEDS ORDERED: LACTAID3000 UNIT PO (14:38)
[2021-02-10] MEDS ORDERED: LEXAPRO20 MG PO (14:39)
[2021-02-10] MEDS ORDERED: COREG12.5 MG PO (14:40)
[2021-02-10] MEDS ORDERED: LIPITOR20 MG PO (14:40)
[2021-02-10] MEDS ORDERED: ASPIRIN 81M81 MG/TA2 PO (14:40)
[2021-02-10] MEDS ORDERED: NORVASC2.5 MG PO (14:40)
[2021-02-10] MEDS ORDERED: PLAVIX 75MG TAB75 MG PO (14:41)
[2021-02-10] MEDS ORDERED: NOVOLOG 100U100 U/M1 SQ (14:46)
[2021-02-10] MEDS ORDERED: TYLENOL W/COD1 UDTAB PO (14:47)
[2021-02-10 15:13] VITALS: BP 154/51; PULSE 76; TEMP 99.2
--- NOTE | 2021-02-10 15:34 | NUR ---
The PA notified AMXIM that ID is recommending IV Cefepime every 8 hours and IV Vanc once a day. MAXIM notified Marion at [facility]. Marion reports that they cannot do the IV antibiotics three times a day. She reports that they can only do once a day. MAXIM notified the PA. MAXIM contacted and faxed a referral to Chinedu at [facility]. MAXIM gave a referral to Juan M at [facility]. ID then switched the IV Cefepime to IV Rocephin, once a day. MAXIM notified Marion at [facility]. Marion reports thats she needs to update her clinical team on this and confirm they can take now. She reports that she will let MAXIM know, once she hears back. MAXIM updated Chinedu at [facility].
--- NOTE | 2021-02-10 18:31 | NUR ---
PT HOME RESTING IN BED PT FRIEND JAVIER AT THE BEDSIDE UPDATED ON CPOC CAST REMAIN INTACT WITH NO SORE NOTED NEUROVASCULAR CHECK REMAIN INTACT.BRAXTON REMAIN INTACT YSABEL MINIMUM OUTPUT
[2021-02-10 19:19] VITALS: BP 121/42; PULSE 81; TEMP 99.3
[2021-02-11 00:20] VITALS: BP 179/90; PULSE 64; TEMP 100.1
[2021-02-11 04:06] VITALS: BP 142/85; PULSE 89; TEMP 99
[2021-02-11 07:08] LABS: MEAN CELL VOLUME 90 fl (80.0-100.0); MEAN CORPUSCULAR HGB CONC 33 g/dl (33.0-37.0); MEAN PLATELET VOLUME 12.1 fl (7.4-10.4); PLATELET COUNT 105 K/mm3 (130-400); RED BLOOD COUNT 3.24 M/mm3 (4.10-5.30); REDCELL DISTRIBUTION WIDTH-CV 13.1 % (11.5-14.5)
[2021-02-11 07:11] LABS: HEMOGLOBIN 9.5 g/dl (12.5-16.0); MEAN CORPUSCULAR HEMOGLOBIN 29 pg (27.0-31.0)
[2021-02-11 07:24] LABS: CALCIUM 8.8 mg/dL (8.4-10.2); CREATININE, serum 1.28 mg/dL (0.57-1.11); POTASSIUM 3.9 mmol/L (3.5-4.5)
[2021-02-11 09:24] VITALS: BP 126/55; PULSE 69; TEMP 98.8
--- NOTE | 2021-02-11 10:30 | NUR ---
Patient alert and oriented, answers questions appropriately. RLE with split cast in place, secured with velcro strips. NWB to RLE. States numbness in right toes, which is patients normal. Sensation decreased in RLE per patients normal. Zelaya catheter in place, patent, draining clear yellow urine. Post op exercises reviewed with patient. No c/o at this time.
[2021-02-11] MEDS ORDERED: ROCEPHIN VIA1 G/VIAL IJ (11:19)
[2021-02-11] MEDS ORDERED: VANCOCIN HCL1 GM IV (11:19)
[2021-02-11 11:26] VITALS: BP 145/49; PULSE 69; TEMP 98.8
--- NOTE | 2021-02-11 11:31 | NUR ---
Marion, at [facility], reports that they are all good to take the patient. SW notified the clinical team. The patient is to discharge today, 02/11, to [facility] for a skilled stay. Transportation was scheduled around 1345, via [facility]. MAXIM informed the patient, her RN, and the patient's DPOA-HC (Nahum) of the time. They were all agreeable to the time. MAXIM also read the IM form outloud to Nahum over the phone. Nahum verbalized understanding and gave SW approval to sign the form on her behalf. No additional needs at this time.
[2021-02-11 13:54] VITALS: BP 145/49; PULSE 69; TEMP 98.8
--- NOTE | 2021-02-11 14:00 | NUR ---
Dr Lora here to see patient and change dressing to right foot. Right foot wound with moderate amount of drainage noted, no odor. Wound bed is red and beefy, granulation tissue noted. Gauze and kerlix applied by Dr Lora. Patient and family member education for dressing monitoring and changes provided by Dr Lora. No c/o at this time.
--- NOTE | 2021-02-11 16:21 | NUR ---
Discharge instructions reviewed with patient and family. Patient transferred to [facility] with wheelchair with transporation staff. Report called to Kenna at 1430. Patient discharged at 1425, paperwork sent.
== END 2021-02-11 14:25 | DRG 638 ==
LOC: COL.ER 16:51 → SURG 20:07
PROVIDERS: Internal Medicine; Nurse Practitioner; Orthopaedic Surgery; Physician Assistant; ADMIT Internal Medicine
PROC: 02HV33Z Insertion of Infusion Device into Superior Vena Cava, Percutaneous Approach (ICD-10-PCS; 2021-02-10)
PROC: 2W3SX2Z Immobilization of Right Foot using Cast (ICD-10-PCS; principal; 2021-02-10 07:15)
DX: E11.69 Type 2 diabetes mellitus with other specified complication (principal); M86.9 Osteomyelitis, unspecified; L89.621 Pressure ulcer of left heel, stage 1; N18.30 Chronic kidney disease, stage 3 unspecified; E11.22 Type 2 diabetes mellitus with diabetic chronic kidney disease; I12.9 Hypertensive chronic kidney disease with stage 1 through stage 4 chronic kidney disease, or unspecified chronic kidney disease; K21.9 Gastro-esophageal reflux disease without esophagitis; E03.9 Hypothyroidism, unspecified; I25.10 Atherosclerotic heart disease of native coronary artery without angina pectoris; Z20.822 Contact with and (suspected) exposure to COVID-19; F32.A Depression, unspecified; D63.1 Anemia in chronic kidney disease; D69.6 Thrombocytopenia, unspecified; N32.81 Overactive bladder; S82.853D Displaced trimalleolar fracture of unspecified lower leg, subsequent encounter for closed fracture with routine healing; S92.321D Displaced fracture of second metatarsal bone, right foot, subsequent encounter for fracture with routine healing; S92.331D Displaced fracture of third metatarsal bone, right foot, subsequent encounter for fracture with routine healing; X58.XXXD Exposure to other specified factors, subsequent encounter; H54.8 Legal blindness, as defined in USA; E78.5 Hyperlipidemia, unspecified; R53.81 Other malaise; Z79.82 Long term (current) use of aspirin; Z79.4 Long term (current) use of insulin; Z79.891 Long term (current) use of opiate analgesic; Z86.73 Personal history of transient ischemic attack (TIA), and cerebral infarction without residual deficits; Z90.710 Acquired absence of both cervix and uterus; Z88.2 Allergy status to sulfonamides; Z88.1 Allergy status to other antibiotic agents; Z88.0 Allergy status to penicillin
CPT/HCPCS: 99222-AI; 99232-AI; 99233-AI; 99239; C1751; J0692; J0696; J1644; J1815; J2704; J3370; J3475; J7030; J7050

== ENCOUNTER → 2021-02-13 | Outpatient (CLI) | payer MEDICARE, MEDICAID ==
[~2021-02-13] MED LIST changes: +ACIDOPHILIS PO; +CUBICIN 500MG500 MG IV; +FLAGYL500 MG PO; +GENTEAL TEARS 015 M1 OP; +MACRODANTIN100 PO; +PROBIOTIC-MAJOR PO; +ROCEPHIN VIA1 G/VIAL IJ; +ROCEPHIN VIA1 G/VIAL IV; +VANCOCIN HCL1 GM IV; +VESICARE 5MG5 MG PO
== END ==
LOC: ZCOL.LAB 12:19
DX: M86.171 Other acute osteomyelitis, right ankle and foot (principal)

== ENCOUNTER → 2021-02-16 | Outpatient (CLI) | payer MEDICARE, MEDICAID ==
[2021-02-16 15:20] LABS: BASO # 0.1 K/mm3 (0.0-0.2); EOS # 0.5 K/mm3 (0.0-0.7); EOS % 8.2 % (0-4.0); GRAN # 3.5 K/mm3 (1.4-6.5); GRAN % 60.5 % (42.2-75.2); LYMPH # 1.3 K/mm3 (1.2-3.4); LYMPH % 22.5 % (20.0-51.0); MEAN CELL VOLUME 91 fl (80.0-100.0); MEAN CORPUSCULAR HGB CONC 32 g/dl (33.0-37.0); MEAN PLATELET VOLUME 12.3 fl (7.4-10.4); MONO # 0.4 K/mm3 (0.1-0.6); MONO % 7.5 % (1.7-9.3); PLATELET COUNT 104 K/mm3 (130-400); RED BLOOD COUNT 3.35 M/mm3 (4.10-5.30); REDCELL DISTRIBUTION WIDTH-CV 13.7 % (11.5-14.5)
[2021-02-16 15:21] LABS: HEMATOCRIT 30.6 % (37.0-47.0); HEMOGLOBIN 9.8 g/dl (12.5-16.0); MEAN CORPUSCULAR HEMOGLOBIN 29 pg (27.0-31.0)
[2021-02-16 15:32] LABS: ALBUMIN 2.9 gm/dL (3.4-4.8); BILIRUBIN,TOTAL 0.3 mg/dL (0.2-1.2); C-REACTIVE PROTEIN 0.4 mg/dL (0.00-0.50); CALCIUM 8.4 mg/dL (8.4-10.2); CREATININE, serum 1.65 mg/dL (0.57-1.11); POTASSIUM 4.2 mmol/L (3.5-4.5); TOTAL PROTEIN 6.4 gm/dL (6.2-8.1)
[2021-02-16 15:56] LABS: ERYTHROCYTE SEDIMENTATION RATE 29 mm/hr (0-30)
== END ==
LOC: ZCOL.LAB 15:04
PROVIDERS: Family Medicine
DX: M86.171 Other acute osteomyelitis, right ankle and foot (principal)

== ENCOUNTER → 2021-02-23 | Outpatient (CLI) | payer MEDICARE, MEDICAID ==
[2021-02-23 12:23] LABS: ALBUMIN 2.7 gm/dL (3.4-4.8); BILIRUBIN,TOTAL 0.4 mg/dL (0.2-1.2); C-REACTIVE PROTEIN 0.19 mg/dL (0.00-0.50); CALCIUM 7.9 mg/dL (8.4-10.2); CREATININE, serum 1.16 mg/dL (0.57-1.11); POTASSIUM 3.8 mmol/L (3.5-4.5)
[2021-02-23 12:27] LABS: BASO # 0.1 K/mm3 (0.0-0.2); BASO % 1.4 % (0.0-2.0); EOS # 0.4 K/mm3 (0.0-0.7); GRAN # 2.3 K/mm3 (1.4-6.5); GRAN % 51.7 % (42.2-75.2); HEMATOCRIT 29.1 % (37.0-47.0); HEMOGLOBIN 9.4 g/dl (12.5-16.0); LYMPH # 1.2 K/mm3 (1.2-3.4); LYMPH % 27.8 % (20.0-51.0); MEAN CELL VOLUME 92 fl (80.0-100.0); MEAN CORPUSCULAR HEMOGLOBIN 30 pg (27.0-31.0); MEAN CORPUSCULAR HGB CONC 32 g/dl (33.0-37.0); MEAN PLATELET VOLUME 12.4 fl (7.4-10.4); MONO # 0.5 K/mm3 (0.1-0.6); MONO % 10.9 % (1.7-9.3); PLATELET COUNT 97 K/mm3 (130-400); RED BLOOD COUNT 3.18 M/mm3 (4.10-5.30); REDCELL DISTRIBUTION WIDTH-CV 14.2 % (11.5-14.5)
[2021-02-23 12:28] LABS: ERYTHROCYTE SEDIMENTATION RATE 22 mm/hr (0-30)
== END ==
LOC: ZCOL.LAB 12:15
PROVIDERS: Family Medicine
DX: M86.171 Other acute osteomyelitis, right ankle and foot (principal); N18.30 Chronic kidney disease, stage 3 unspecified

== ENCOUNTER → 2021-03-02 | Outpatient (CLI) | payer MEDICARE, MEDICAID ==
[2021-03-02 13:04] LABS: ALBUMIN 2.8 gm/dL (3.4-4.8); BILIRUBIN,TOTAL 0.4 mg/dL (0.2-1.2); C-REACTIVE PROTEIN 0.16 mg/dL (0.00-0.50); CREATININE, serum 1.15 mg/dL (0.57-1.11); POTASSIUM 3.7 mmol/L (3.5-4.5); TOTAL PROTEIN 5.8 gm/dL (6.2-8.1)
[2021-03-02 16:12] LABS: BASO # 0.1 K/mm3 (0.0-0.2); BASO % 1.4 % (0.0-2.0); EOS # 0.4 K/mm3 (0.0-0.7); EOS % 8.2 % (0-4.0); GRAN # 2.3 K/mm3 (1.4-6.5); GRAN % 53.7 % (42.2-75.2); LYMPH # 1.2 K/mm3 (1.2-3.4); LYMPH % 27.1 % (20.0-51.0); MEAN CELL VOLUME 91 fl (80.0-100.0); MEAN CORPUSCULAR HGB CONC 32 g/dl (33.0-37.0); MEAN PLATELET VOLUME 13.5 fl (7.4-10.4); MONO # 0.4 K/mm3 (0.1-0.6); MONO % 9.4 % (1.7-9.3); PLATELET COUNT 87 K/mm3 (130-400); RED BLOOD COUNT 3.24 M/mm3 (4.10-5.30); REDCELL DISTRIBUTION WIDTH-CV 14.5 % (11.5-14.5)
[2021-03-02 16:15] LABS: HEMATOCRIT 29.6 % (37.0-47.0); HEMOGLOBIN 9.4 g/dl (12.5-16.0); MEAN CORPUSCULAR HEMOGLOBIN 29 pg (27.0-31.0)
[2021-03-02 16:34] LABS: ERYTHROCYTE SEDIMENTATION RATE 14 mm/hr (0-30)
== END ==
LOC: ZCOL.LAB 12:36
PROVIDERS: Family Medicine
DX: M86.171 Other acute osteomyelitis, right ankle and foot (principal)

== ENCOUNTER → 2021-03-04 | Outpatient (CLI) | payer MEDICARE, MEDICAID ==
[2021-03-04 23:04] LABS: BASO % 0.8 % (0.0-2.0); EOS # 0.4 K/mm3 (0.0-0.7); EOS % 8.3 % (0-4.0); GRAN # 2.7 K/mm3 (1.4-6.5); GRAN % 56.4 % (42.2-75.2); LYMPH # 1.2 K/mm3 (1.2-3.4); LYMPH % 24.6 % (20.0-51.0); MEAN CELL VOLUME 93 fl (80.0-100.0); MEAN CORPUSCULAR HGB CONC 31 g/dl (33.0-37.0); MEAN PLATELET VOLUME 13.2 fl (7.4-10.4); MONO # 0.5 K/mm3 (0.1-0.6); MONO % 9.5 % (1.7-9.3); PLATELET COUNT 97 K/mm3 (130-400); RED BLOOD COUNT 3.23 M/mm3 (4.10-5.30); REDCELL DISTRIBUTION WIDTH-CV 14.7 % (11.5-14.5)
[2021-03-04 23:12] LABS: HEMATOCRIT 30.1 % (37.0-47.0); HEMOGLOBIN 9.4 g/dl (12.5-16.0); MEAN CORPUSCULAR HEMOGLOBIN 29 pg (27.0-31.0)
[2021-03-04 23:18] LABS: ALBUMIN 2.9 gm/dL (3.4-4.8); BILIRUBIN,TOTAL 0.3 mg/dL (0.2-1.2); C-REACTIVE PROTEIN 0.17 mg/dL (0.00-0.50); CALCIUM 7.9 mg/dL (8.4-10.2); CREATININE, serum 1.24 mg/dL (0.57-1.11); POTASSIUM 3.8 mmol/L (3.5-4.5)
[2021-03-04 23:44] LABS: ERYTHROCYTE SEDIMENTATION RATE 14 mm/hr (0-30)
== END ==
LOC: ZCOL.LAB 17:58
PROVIDERS: Family Medicine
DX: M86.171 Other acute osteomyelitis, right ankle and foot (principal)

== ENCOUNTER → 2021-03-09 | Outpatient (CLI) | payer MEDICARE, MEDICAID ==
[2021-03-09 19:31] LABS: BASO % 1.2 % (0.0-2.0); EOS # 0.3 K/mm3 (0.0-0.7); EOS % 9.9 % (0-4.0); GRAN # 1.8 K/mm3 (1.4-6.5); GRAN % 52.6 % (42.2-75.2); HEMATOCRIT 37.3 % (37.0-47.0); LYMPH # 0.9 K/mm3 (1.2-3.4); LYMPH % 26.4 % (20.0-51.0); MEAN CELL VOLUME 91 fl (80.0-100.0); MEAN CORPUSCULAR HEMOGLOBIN 29 pg (27.0-31.0); MEAN CORPUSCULAR HGB CONC 32 g/dl (33.0-37.0); MONO # 0.3 K/mm3 (0.1-0.6); MONO % 9.6 % (1.7-9.3); PLATELET COUNT 89 K/mm3 (130-400); RED BLOOD COUNT 4.08 M/mm3 (4.10-5.30); REDCELL DISTRIBUTION WIDTH-CV 14.6 % (11.5-14.5)
[2021-03-09 19:57] LABS: ERYTHROCYTE SEDIMENTATION RATE 9 mm/hr (0-30)
[2021-03-09 22:32] LABS: CREATININE, serum 1.15 mg/dL (0.57-1.11)
[2021-03-09 22:33] LABS: POTASSIUM 4.3 mmol/L (3.5-4.5)
[2021-03-09 22:34] LABS: CALCIUM 8.2 mg/dL (8.4-10.2); TOTAL PROTEIN 6.1 gm/dL (6.2-8.1)
[2021-03-09 22:35] LABS: ALBUMIN 2.9 gm/dL (3.4-4.8); BILIRUBIN,TOTAL 0.4 mg/dL (0.2-1.2)
[2021-03-09 22:37] LABS: C-REACTIVE PROTEIN 0.42 mg/dL (0.00-0.50)
== END ==
LOC: ZCOL.LAB 17:47
PROVIDERS: Family Medicine
DX: N18.30 Chronic kidney disease, stage 3 unspecified (principal); M86.171 Other acute osteomyelitis, right ankle and foot

== ENCOUNTER 2021-03-23 00:32 | Emergency (ER) | payer MEDICARE, MEDICAID ==
[~2021-03-23] VITALS: Ht 172.7 cm; Wt 64.1 kg
[~2021-03-23 00:32] MED LIST changes: -ACIDOPHILIS PO; -CUBICIN 500MG500 MG IV; -GENTEAL TEARS 015 M1 OP; -MACRODANTIN100 PO; -VESICARE 5MG5 MG PO
[2021-03-23 00:34] VITALS: TEMP 97.3
[2021-03-23 00:46] LABS: BASO % 0.5 % (0.0-2.0); EOS # 0.3 K/mm3 (0.0-0.7); EOS % 4.5 % (0.0-4.0); GRAN # 4.4 K/mm3 (1.4-6.5); GRAN % 69.2 % (42.2-75.2); LYMPH % 15.2 % (20.0-51.0); MEAN CELL VOLUME 86 fl (80.0-100.0); MEAN CORPUSCULAR HGB CONC 33 g/dl (33.0-37.0); MEAN PLATELET VOLUME 12.1 fl (7.4-10.4); MONO # 0.7 K/mm3 (0.1-0.6); MONO % 10.3 % (1.7-9.3); PLATELET COUNT 108 K/mm3 (130-400); RED BLOOD COUNT 3.47 M/mm3 (4.10-5.30); REDCELL DISTRIBUTION WIDTH-CV 14.3 % (11.5-14.5)
[2021-03-23 00:49] LABS: HEMATOCRIT 29.7 % (37.0-47.0); HEMOGLOBIN 9.9 g/dl (12.5-16.0); MEAN CORPUSCULAR HEMOGLOBIN 29 pg (27-31)
[2021-03-23 00:59] LABS: COLLECTION METHOD CATHETER
[2021-03-23 01:03] LABS: ALANINE AMINOTRANSFERASE 6 U/L (0-55); ALBUMIN 2.7 gm/dL (3.4-4.8); ALKALINE PHOSPHATASE 64 U/L (40-150); ANION GAP 12 mmol/L (7-16); AST,SGOT 13 U/L (5-34); BILIRUBIN,TOTAL 0.4 mg/dL (0.2-1.2); BLOOD UREA NITROGEN 23 mg/dL (10-20); CALCIUM 8.3 mg/dL (8.4-10.2); CARBON DIOXIDE 21 mmol/L (23-31); CHLORIDE 108 mmol/L (98-107); CREATININE, serum 1.15 mg/dL (0.57-1.11); GLUCOSE 92 mg/dL (70-99); LIPASE < 10 U/L (8-78); SODIUM 141 mmol/L (136-145); TOTAL PROTEIN 6.2 gm/dL (6.2-8.1)
[2021-03-23 01:04] LABS: POTASSIUM 2.9 mmol/L (3.5-4.5)
[2021-03-23 01:05] LABS: PH 6 (5-8); URINE APPEARANCE Cloudy (CLEAR/HAZY); URINE COLOR Yellow (YELLOW)
[2021-03-23 01:06] LABS: URINE BILIRUBIN Negative (NEGATIVE); URINE BLOOD Negative (NEGATIVE); URINE GLUCOSE Negative (NEGATIVE); URINE KETONE Negative (NEGATIVE); URINE LEUKOCYTE ESTERASE 1+ (NEGATIVE); URINE NITRATE Negative (NEGATIVE); URINE PROTEIN(semi-quant) 2+ (NEGATIVE); URINE UROBILINOGEN Negative (NEGATIVE)
[2021-03-23 01:15] LABS: BUDDING YEAST Present (NOT PRESENT); MUCOUS Present (NOT PRESENT); URINE BACTERIA Moderate /hpf (NONE SEEN); URINE RBC >50 /hpf (0-2)
[2021-03-23 01:22] LABS: TSH w REFLEX 2.196 uIU/mL (0.350-4.940)
[2021-03-23] MEDS ORDERED: MACROBID 1100 MG/CAP PO (02:05)
[2021-03-23 03:24] VITALS: BP 125/54; PULSE 72
[2021-03-24] MEDS ORDERED: TYLENOL W/COD1 UDTAB PO (17:22)
[2021-03-24] MEDS ORDERED: ASPIRIN 81M81 MG/TA2 PO (17:22)
[2021-03-24] MEDS ORDERED: LIPITOR20 MG PO (17:22)
[2021-03-24] MEDS ORDERED: BASAGLAR K100 UNIT/1 SQ (17:23)
[2021-03-24] MEDS ORDERED: CUBICIN 500MG500 MG IV (17:23)
[2021-03-24] MEDS ORDERED: COREG12.5 MG PO (17:23)
[2021-03-24] MEDS ORDERED: GENTEAL TEARS 015 M1 OP (17:24)
[2021-03-24] MEDS ORDERED: GOOD SENSE LAC3000 U PO (17:25)
[2021-03-24] MEDS ORDERED: LEXAPRO20 MG PO (17:26)
[2021-03-24] MEDS ORDERED: ACIDOPHILIS PO (17:26)
[2021-03-24] MEDS ORDERED: SYNTHROID 0.10.15 MG PO (17:26)
[2021-03-24] MEDS ORDERED: FLAGYL500 MG PO (17:27)
[2021-03-24] MEDS ORDERED: MYRBETR50MG PO (17:27)
[2021-03-24] MEDS ORDERED: NOVOLOG 100U100 U/M1 SQ (17:28)
[2021-03-24] MEDS ORDERED: MACRODANTIN100 PO (17:28)
[2021-03-24] MEDS ORDERED: NORVASC2.5 MG PO (17:28)
[2021-03-24] MEDS ORDERED: PLAVIX 75MG TAB75 MG PO (17:29)
[2021-03-24] MEDS ORDERED: PROTONIX20 MG PO (17:29)
[2021-03-24] MEDS ORDERED: ROCEPHIN VIA1 G/VIAL IJ (17:29)
[2021-03-24] MEDS ORDERED: NATURAL E400 IU PO (17:30)
[2021-03-24] MEDS ORDERED: VESICARE 5MG5 MG PO (17:30)
== END 2021-03-23 03:24 | disposition home or self-care (01) ==
LOC: COL.ER 00:32
PROVIDERS: Emergency Medicine
DX: E11.649 Type 2 diabetes mellitus with hypoglycemia without coma (principal); E11.22 Type 2 diabetes mellitus with diabetic chronic kidney disease; I12.9 Hypertensive chronic kidney disease with stage 1 through stage 4 chronic kidney disease, or unspecified chronic kidney disease; N18.30 Chronic kidney disease, stage 3 unspecified; E78.5 Hyperlipidemia, unspecified; I25.10 Atherosclerotic heart disease of native coronary artery without angina pectoris; E03.9 Hypothyroidism, unspecified; D63.1 Anemia in chronic kidney disease; Z86.73 Personal history of transient ischemic attack (TIA), and cerebral infarction without residual deficits; Z79.890 Hormone replacement therapy; Z79.4 Long term (current) use of insulin; Z98.2 Presence of cerebrospinal fluid drainage device; Z79.02 Long term (current) use of antithrombotics/antiplatelets; Z79.899 Other long term (current) drug therapy

== ENCOUNTER → 2021-03-23 | Outpatient (CLI) | payer MEDICARE, MEDICAID ==
[2021-03-23 16:08] LABS: ALANINE AMINOTRANSFERASE < 6 U/L (0-55); ALBUMIN 2.4 gm/dL (3.4-4.8); ALKALINE PHOSPHATASE 57 U/L (40-150); ANION GAP 11 mmol/L (7-16); AST,SGOT 12 U/L (5-34); BILIRUBIN,TOTAL 0.4 mg/dL (0.2-1.2); BLOOD UREA NITROGEN 21 mg/dL (10-20); CALCIUM 7.7 mg/dL (8.4-10.2); CARBON DIOXIDE 22 mmol/L (23-31); CHLORIDE 106 mmol/L (98-107); CREATINE KINASE 55 U/L (29-168); CREATININE, serum 1.01 mg/dL (0.57-1.11); GLUCOSE 147 mg/dL (70-99); POTASSIUM 3.5 mmol/L (3.5-4.5); SODIUM 139 mmol/L (136-145); TOTAL PROTEIN 5.2 gm/dL (6.2-8.1)
== END ==
LOC: ZCOL.LAB 14:44
PROVIDERS: Family Medicine
DX: M86.171 Other acute osteomyelitis, right ankle and foot (principal)

== ENCOUNTER 2021-03-24 13:01 | Outpatient (CLI) | payer MEDICARE, MEDICAID ==
[2021-03-24 13:30] VITALS: BP 148/62; PULSE 67; TEMP 97.8
--- NOTE | 2021-03-24 13:30 | NUR ---
Here for PICC evaluation. Express unit RN flush PICC without difficulty and good blood return noted. Dressing dated 03/19/2021. All 4 corners of the dressing edges taped. Sterile dressing change performed on patient's right upper arm PICC with chlorhexidine scrub at insertion site, skin prep, StatLock, chlorhexidine impregnated disc applied and Tegaderm applied. No signs or symptoms of IV complications noted. No concerns voiced. Express unit RN will obtain lab sample. To wrap arm with [place]ane and send patient back to [place].
[2021-03-24 13:58] LABS: MEAN CELL VOLUME 87 fl (80.0-100.0); MEAN CORPUSCULAR HGB CONC 33 g/dl (33.0-37.0); MEAN PLATELET VOLUME 12.8 fl (7.4-10.4); PLATELET COUNT 116 K/mm3 (130-400); RED BLOOD COUNT 3.24 M/mm3 (4.10-5.30); REDCELL DISTRIBUTION WIDTH-CV 13.9 % (11.5-14.5)
[2021-03-24 14:24] LABS: HEMATOCRIT 28.2 % (37.0-47.0); HEMOGLOBIN 9.4 g/dl (12.5-16.0); MEAN CORPUSCULAR HEMOGLOBIN 29 pg (27-31)
[2021-03-24 14:25] LABS: ERYTHROCYTE SEDIMENTATION RATE 47 mm/hr (0-30)
[2021-03-24] MEDS ORDERED: ASPIRIN 81M81 MG/TA2 PO (17:22)
[2021-03-24] MEDS ORDERED: TYLENOL W/COD1 UDTAB PO (17:22)
[2021-03-24] MEDS ORDERED: LIPITOR20 MG PO (17:22)
[2021-03-24] MEDS ORDERED: CUBICIN 500MG500 MG IV (17:23)
[2021-03-24] MEDS ORDERED: BASAGLAR K100 UNIT/1 SQ (17:23)
[2021-03-24] MEDS ORDERED: COREG12.5 MG PO (17:23)
[2021-03-24] MEDS ORDERED: GENTEAL TEARS 015 M1 OP (17:24)
[2021-03-24] MEDS ORDERED: GOOD SENSE LAC3000 U PO (17:25)
[2021-03-24] MEDS ORDERED: LEXAPRO20 MG PO (17:26)
[2021-03-24] MEDS ORDERED: SYNTHROID 0.10.15 MG PO (17:26)
[2021-03-24] MEDS ORDERED: ACIDOPHILIS PO (17:26)
[2021-03-24] MEDS ORDERED: MYRBETR50MG PO (17:27)
[2021-03-24] MEDS ORDERED: FLAGYL500 MG PO (17:27)
[2021-03-24] MEDS ORDERED: MACRODANTIN100 PO (17:28)
[2021-03-24] MEDS ORDERED: NOVOLOG 100U100 U/M1 SQ (17:28)
[2021-03-24] MEDS ORDERED: NORVASC2.5 MG PO (17:28)
[2021-03-24] MEDS ORDERED: PLAVIX 75MG TAB75 MG PO (17:29)
[2021-03-24] MEDS ORDERED: PROTONIX20 MG PO (17:29)
[2021-03-24] MEDS ORDERED: ROCEPHIN VIA1 G/VIAL IJ (17:29)
[2021-03-24] MEDS ORDERED: VESICARE 5MG5 MG PO (17:30)
[2021-03-24] MEDS ORDERED: NATURAL E400 IU PO (17:30)
== END 2021-03-24 17:39 ==
LOC: EUO 13:01
PROVIDERS: Family Medicine
DX: M86.9 Osteomyelitis, unspecified (principal)

== ENCOUNTER → 2021-03-26 | Outpatient (CLI) | payer MEDICARE, MEDICAID ==
[~2021-03-26] MED LIST changes: +ACIDOPHILIS PO; +CUBICIN 500MG500 MG IV; +GENTEAL TEARS 015 M1 OP; +MACRODANTIN100 PO; +VESICARE 5MG5 MG PO
[2021-03-26 20:52] LABS: ALKALINE PHOSPHATASE 65 U/L (40-150); ANION GAP 19 mmol/L (7-16); AST,SGOT 21 U/L (5-34); BILIRUBIN,TOTAL 0.2 mg/dL (0.2-1.2); BLOOD UREA NITROGEN 20 mg/dL (10-20); CALCIUM 8.4 mg/dL (8.4-10.2); CHLORIDE 113 mmol/L (98-107); CREATININE, serum 1.29 mg/dL (0.57-1.11); GLUCOSE 153 mg/dL (70-99); POTASSIUM 4.5 mmol/L (3.5-4.5); SODIUM 146 mmol/L (136-145); TOTAL PROTEIN 6.5 gm/dL (6.2-8.1)
[2021-03-26 21:32] LABS: ALANINE AMINOTRANSFERASE < 6 U/L (0-55); CARBON DIOXIDE 14 mmol/L (23-31)
== END ==
LOC: ZCOL.LAB 19:39
PROVIDERS: Family Medicine
DX: E87.6 Hypokalemia (principal)

== ENCOUNTER → 2021-03-30 | Outpatient (CLI) | payer MEDICARE, MEDICAID ==
[2021-03-30 22:46] LABS: BASO % 0.6 % (0.0-2.0); EOS # 0.3 K/mm3 (0.0-0.7); EOS % 6.3 % (0.0-4.0); GRAN # 2.5 K/mm3 (1.4-6.5); GRAN % 54.7 % (42.2-75.2); LYMPH # 1.3 K/mm3 (1.2-3.4); LYMPH % 28.5 % (20.0-51.0); MEAN CELL VOLUME 89 fl (80.0-100.0); MEAN CORPUSCULAR HGB CONC 32 g/dl (33.0-37.0); MEAN PLATELET VOLUME 13.1 fl (7.4-10.4); MONO # 0.5 K/mm3 (0.1-0.6); MONO % 9.9 % (1.7-9.3); PLATELET COUNT 123 K/mm3 (130-400); RED BLOOD COUNT 3.22 M/mm3 (4.10-5.30); REDCELL DISTRIBUTION WIDTH-CV 13.7 % (11.5-14.5)
[2021-03-30 22:49] LABS: HEMATOCRIT 28.8 % (37.0-47.0); HEMOGLOBIN 9.3 g/dl (12.5-16.0); MEAN CORPUSCULAR HEMOGLOBIN 29 pg (27-31)
[2021-03-30 22:58] LABS: C-REACTIVE PROTEIN 0.32 mg/dL (0.00-0.50)
[2021-03-30 23:21] LABS: ERYTHROCYTE SEDIMENTATION RATE 22 mm/hr (0-30)
== END ==
LOC: ZCOL.LAB 22:17
PROVIDERS: Family Medicine
DX: M86.171 Other acute osteomyelitis, right ankle and foot (principal); N18.30 Chronic kidney disease, stage 3 unspecified

== ENCOUNTER → 2021-03-31 | Outpatient (CLI) | payer MEDICARE, MEDICAID ==
[2021-03-31 15:54] LABS: ALBUMIN 2.9 gm/dL (3.4-4.8); BILIRUBIN,TOTAL 0.5 mg/dL (0.2-1.2); C-REACTIVE PROTEIN 0.3 mg/dL (0.00-0.50); CALCIUM 8.3 mg/dL (8.4-10.2); CREATININE, serum 1.25 mg/dL (0.57-1.11); POTASSIUM 4.2 mmol/L (3.5-4.5); TOTAL PROTEIN 6.3 gm/dL (6.2-8.1)
== END ==
LOC: ZCOL.LAB 14:36
PROVIDERS: Family Medicine
DX: M86.171 Other acute osteomyelitis, right ankle and foot (principal)

== ENCOUNTER → 2021-04-06 | Outpatient (CLI) | payer MEDICARE, MEDICAID ==
[2021-04-06 17:34] LABS: BASO % 0.7 % (0.0-2.0); EOS # 0.2 K/mm3 (0.0-0.7); EOS % 4.5 % (0.0-4.0); GRAN # 2.8 K/mm3 (1.4-6.5); GRAN % 63.8 % (42.2-75.2); LYMPH % 22.7 % (20.0-51.0); MEAN CELL VOLUME 89 fl (80.0-100.0); MEAN CORPUSCULAR HGB CONC 32 g/dl (33.0-37.0); MEAN PLATELET VOLUME 13.3 fl (7.4-10.4); MONO # 0.4 K/mm3 (0.1-0.6); MONO % 7.9 % (1.7-9.3); PLATELET COUNT 86 K/mm3 (130-400); REDCELL DISTRIBUTION WIDTH-CV 13.6 % (11.5-14.5)
[2021-04-06 17:46] LABS: ALBUMIN 2.4 gm/dL (3.4-4.8); BILIRUBIN,TOTAL 0.4 mg/dL (0.2-1.2); C-REACTIVE PROTEIN 0.14 mg/dL (0.00-0.50); CALCIUM 7.1 mg/dL (8.4-10.2); CREATININE, serum 1.24 mg/dL (0.57-1.11); POTASSIUM 3.4 mmol/L (3.5-4.5); TOTAL PROTEIN 5.3 gm/dL (6.2-8.1)
[2021-04-06 17:53] LABS: HEMATOCRIT 27.6 % (37.0-47.0); HEMOGLOBIN 8.9 g/dl (12.5-16.0); MEAN CORPUSCULAR HEMOGLOBIN 29 pg (27-31)
[2021-04-06 18:00] LABS: ERYTHROCYTE SEDIMENTATION RATE 10 mm/hr (0-30)
== END ==
LOC: ZCOL.LAB 17:14
PROVIDERS: Family Medicine
DX: M86.171 Other acute osteomyelitis, right ankle and foot (principal)

== ENCOUNTER 2021-04-09 08:35 | Outpatient (CLI) | payer MEDICARE, MEDICAID ==
[2008-12-11 01:54] VITALS: BP 172/82
[~2021-04-09] VITALS: Ht 172.7 cm; Wt 67.3 kg
[2021-04-09 10:00] VITALS: BP 128/41; PULSE 61; TEMP 97.9
== END 2021-04-09 11:45 ==
LOC: EUO 08:35
DX: M86.9 Osteomyelitis, unspecified (principal)

== ENCOUNTER → 2021-04-27 | Outpatient (CLI) | payer MEDICARE, MEDICAID ==
[2021-04-27 14:30] LABS: ERYTHROCYTE SEDIMENTATION RATE 12 mm/hr (0-30)
[2021-04-27 14:32] LABS: BASO % 0.7 % (0.0-2.0); EOS # 0.3 K/mm3 (0.0-0.7); EOS % 5.8 % (0.0-4.0); GRAN # 2.3 K/mm3 (1.4-6.5); HEMOGLOBIN 10.1 g/dl (12.5-16.0); LYMPH # 1.3 K/mm3 (1.2-3.4); LYMPH % 29.5 % (20.0-51.0); MEAN CELL VOLUME 85 fl (80.0-100.0); MEAN CORPUSCULAR HEMOGLOBIN 29 pg (27-31); MEAN CORPUSCULAR HGB CONC 34 g/dl (33.0-37.0); MONO # 0.4 K/mm3 (0.1-0.6); MONO % 9.8 % (1.7-9.3); PLATELET COUNT 75 K/mm3 (130-400); RED BLOOD COUNT 3.52 M/mm3 (4.10-5.30); REDCELL DISTRIBUTION WIDTH-CV 14.5 % (11.5-14.5)
[2021-04-27 14:33] LABS: HEMATOCRIT 29.9 % (37.0-47.0)
[2021-04-27 14:43] LABS: ALBUMIN 2.4 gm/dL (3.4-4.8); BILIRUBIN,TOTAL 0.4 mg/dL (0.2-1.2); C-REACTIVE PROTEIN 0.64 mg/dL (0.00-0.50); CALCIUM 7.6 mg/dL (8.4-10.2); CREATININE, serum 1.26 mg/dL (0.57-1.11); POTASSIUM 3.5 mmol/L (3.5-4.5); TOTAL PROTEIN 5.5 gm/dL (6.2-8.1)
== END ==
LOC: ZCOL.LAB 14:06
PROVIDERS: Family Medicine
DX: I12.9 Hypertensive chronic kidney disease with stage 1 through stage 4 chronic kidney disease, or unspecified chronic kidney disease (principal); D69.6 Thrombocytopenia, unspecified; M86.171 Other acute osteomyelitis, right ankle and foot; N18.9 Chronic kidney disease, unspecified

== ENCOUNTER → 2021-05-08 | Outpatient (CLI) | payer MEDICARE, MEDICAID | LOC: ZCOL.LAB 16:58 | DX: M86.9 Osteomyelitis, unspecified (principal); L97.409 Non-pressure chronic ulcer of unspecified heel and midfoot with unspecified severity; L89.609 Pressure ulcer of unspecified heel, unspecified stage ==

== ENCOUNTER → 2021-06-15 | Outpatient (CLI) | payer MEDICARE, MEDICAID | LOC: ZCOL.LAB 17:02 | DX: L89.609 Pressure ulcer of unspecified heel, unspecified stage (principal); M86.9 Osteomyelitis, unspecified ==

== ENCOUNTER 2021-11-13 10:10 | Emergency (ER) | payer MEDICARE, MEDICAID ==
[~2021-11-13] VITALS: Wt 56.8 kg
[2021-11-13 10:14] VITALS: TEMP 98
[2021-11-13 10:30] LABS: BASO % 0.2 % (0.0-2.0); EOS % 0.8 % (0.0-4.0); GRAN # 2.9 K/mm3 (1.4-6.5); GRAN % 58.6 % (42.2-75.2); HEMOGLOBIN 11.2 g/dl (12.5-16.0); LYMPH # 1.3 K/mm3 (1.2-3.4); LYMPH % 24.9 % (20.0-51.0); MEAN CELL VOLUME 88 fl (80.0-100.0); MEAN CORPUSCULAR HEMOGLOBIN 30 pg (27-31); MEAN CORPUSCULAR HGB CONC 34 g/dl (33.0-37.0); MEAN PLATELET VOLUME 12.4 fl (7.4-10.4); MONO # 0.8 K/mm3 (0.1-0.6); MONO % 15.1 % (1.7-9.3); PLATELET COUNT 82 K/mm3 (130-400); RED BLOOD COUNT 3.77 M/mm3 (4.10-5.30); REDCELL DISTRIBUTION WIDTH-CV 13.2 % (11.5-14.5)
[2021-11-13 10:33] LABS: HEMATOCRIT 33.3 % (37.0-47.0)
[2021-11-13 10:47] LABS: ALBUMIN 2.5 gm/dL (3.4-4.8); BILIRUBIN,TOTAL 0.4 mg/dL (0.2-1.2); CALCIUM 8.7 mg/dL (8.4-10.2); CREATININE, serum 1.74 mg/dL (0.57-1.11); POTASSIUM 4.6 mmol/L (3.5-4.5); TOTAL PROTEIN 6.3 gm/dL (6.2-8.1)
[2021-11-13 12:35] LABS: COLLECTION METHOD CATHETER
[2021-11-13 12:46] LABS: URINE APPEARANCE Cloudy (CLEAR/HAZY); URINE BLOOD 1+ (NEGATIVE); URINE COLOR Yellow (YELLOW); URINE GLUCOSE Negative (NEGATIVE); URINE KETONE Negative (NEGATIVE); URINE NITRATE Positive (NEGATIVE); URINE PROTEIN(semi-quant) 1+ (NEGATIVE); URINE UROBILINOGEN 0.2 E.U/dL (0.2-1.0)
[2021-11-13 13:01] LABS: MUCOUS Present (NOT PRESENT); SQUAMOUS EPITHELIAL 0-2 /hpf (0-10); URINE BACTERIA Many /hpf (NONE SEEN)
[2021-11-13] MEDS ORDERED: OMNICEF 300MG300 MG PO (13:32)
[2021-11-13 14:05] VITALS: BP 149/63; PULSE 83
== END 2021-11-13 14:38 | disposition home or self-care (01) ==
LOC: COL.ER 10:10
PROVIDERS: Emergency Medicine
DX: N39.0 Urinary tract infection, site not specified (principal); R53.1 Weakness; Z88.0 Allergy status to penicillin

== ENCOUNTER 2022-04-21 12:09 | Emergency (ER) | payer MEDICARE, MEDICAID ==
[~2022-04-21] VITALS: Ht 172.7 cm; Wt 54.5 kg
[2022-04-21 12:11] VITALS: TEMP 98.3
[2022-04-21 12:35] LABS: BASO % 0.2 % (0.0-2.0); EOS # 0.2 K/mm3 (0.0-0.7); EOS % 3.7 % (0.0-4.0); GRAN # 4.7 K/mm3 (1.4-6.5); GRAN % 74.1 % (42.2-75.2); HEMOGLOBIN 11.9 g/dl (12.5-16.0); LYMPH # 0.9 K/mm3 (1.2-3.4); LYMPH % 14.5 % (20.0-51.0); MEAN CELL VOLUME 90 fl (80.0-100.0); MEAN CORPUSCULAR HEMOGLOBIN 30 pg (27-31); MEAN CORPUSCULAR HGB CONC 34 g/dl (33.0-37.0); MEAN PLATELET VOLUME 12.4 fl (7.4-10.4); MONO # 0.5 K/mm3 (0.1-0.6); MONO % 7.2 % (1.7-9.3); PLATELET COUNT 79 K/mm3 (130-400); RED BLOOD COUNT 3.93 M/mm3 (4.10-5.30); REDCELL DISTRIBUTION WIDTH-CV 12.5 % (11.5-14.5)
[2022-04-21 12:47] LABS: BILIRUBIN,TOTAL 0.7 mg/dL (0.2-1.2); CALCIUM 8.8 mg/dL (8.4-10.2); CREATININE, serum 1.65 mg/dL (0.57-1.11); POTASSIUM 4.3 mmol/L (3.5-4.5); TOTAL PROTEIN 6.7 gm/dL (6.2-8.1)
[2022-04-21 12:56] LABS: TROPONIN-I 0.036 ng/mL (0.00-0.033)
[2022-04-21 13:06] LABS: HEMATOCRIT 35.2 % (37.0-47.0)
[2022-04-21 18:47] VITALS: BP 103/82; PULSE 84
== END 2022-04-21 18:49 | disposition home or self-care (01) ==
LOC: COL.ER 12:09
PROVIDERS: Nurse Practitioner
DX: R05.9 Cough, unspecified (principal); R07.89 Other chest pain; I13.0 Hypertensive heart and chronic kidney disease with heart failure and stage 1 through stage 4 chronic kidney disease, or unspecified chronic kidney disease; E11.22 Type 2 diabetes mellitus with diabetic chronic kidney disease; N18.9 Chronic kidney disease, unspecified; I50.9 Heart failure, unspecified; Z20.822 Contact with and (suspected) exposure to COVID-19

== ENCOUNTER 2023-07-14 15:43 | Inpatient (IN) | payer MEDICARE, MEDICAID ==
[~2023-07-14] VITALS: Ht 172.7 cm; Wt 61.0 kg
[~2023-07-14 15:43] MED LIST changes: +ANTIVERT 25MG25 MG PO
[2023-07-14 16:22] LABS: COLLECTION METHOD CATHETER
[2023-07-14 16:44] LABS: BASO % 0.7 % (0.0-2.0); EOS # 0.7 K/mm3 (0.0-0.7); GRAN # 3.2 K/mm3 (1.4-6.5); GRAN % 53.7 % (42.2-75.2); HEMOGLOBIN 10.7 g/dl (12.5-16.0); LYMPH # 1.5 K/mm3 (1.2-3.4); LYMPH % 25.1 % (20.0-51.0); MEAN CELL VOLUME 86 fl (80.0-100.0); MEAN CORPUSCULAR HEMOGLOBIN 30 pg (27-31); MEAN CORPUSCULAR HGB CONC 34 g/dl (33.0-37.0); MEAN PLATELET VOLUME 11.4 fl (7.4-10.4); MONO # 0.6 K/mm3 (0.1-0.6); MONO % 9.3 % (1.7-9.3); PLATELET COUNT 110 K/mm3 (130-400); RED BLOOD COUNT 3.63 M/mm3 (4.10-5.30); REDCELL DISTRIBUTION WIDTH-CV 13.2 % (11.5-14.5)
[2023-07-14 16:44] LABS: URINE APPEARANCE CLOUDY (CLEAR/HAZY); URINE BLOOD NEGATIVE (NEGATIVE); URINE COLOR YELLOW (YELLOW); URINE GLUCOSE NEGATIVE (NEGATIVE); URINE KETONE NEGATIVE (NEGATIVE); URINE NITRATE POSITIVE (NEGATIVE); URINE PROTEIN(semi-quant) 2+ (NEGATIVE); URINE UROBILINOGEN 0.2 E.U/dL (0.2-1.0)
[2023-07-14 16:47] LABS: HEMATOCRIT 31.3 % (37.0-47.0)
[2023-07-14 16:53] LABS: ACETONE,SERUM NEGATIVE
[2023-07-14 16:58] LABS: ALANINE AMINOTRANSFERASE 24 U/L (0-55); ALBUMIN 2.9 g/dL (3.4-4.8); ALKALINE PHOSPHATASE 92 U/L (40-150); ANION GAP 10 mmol/L (7-16); AST,SGOT 29 U/L (5-34); BILIRUBIN,TOTAL 0.4 mg/dL (0.2-1.2); BLOOD UREA NITROGEN 46 mg/dL (10-20); CALCIUM 8.9 mg/dL (8.4-10.2); CHLORIDE 112 mEq/L (98-107); CREATININE, serum 1.92 mg/dL (0.57-1.11); GLUCOSE 130 mg/dL (70-99); POTASSIUM 4.4 mEq/L (3.5-4.5); SODIUM 144 mEq/L (136-145); TOTAL PROTEIN 6.8 g/dl (6.2-8.1)
[2023-07-14 16:58] LABS: URINE BACTERIA MANY /hpf (NONE SEEN); URINE RBC NONE SEEN /hpf (0-2); URINE WBC 20-50 /hpf (0-2)
[2023-07-14] MEDS ORDERED: LEXAPRO 10MG10 MG PO (17:07)
[2023-07-14] MEDS ORDERED: XYZAL5 MG PO (17:08)
[2023-07-14] MEDS ORDERED: ASTELIN NASAL S34 ML NS (17:10)
[2023-07-14] MEDS ORDERED: NOVLOG SQ (17:16)
[2023-07-14] MEDS ORDERED: VITAMIN D 400400 IU PO (17:18)
[2023-07-14] MEDS ORDERED: VITAMIN E 400 U4001 PO (17:19)
[2023-07-14] MEDS ORDERED: OCEAN NASAL SPR45 ML NS (17:21)
[2023-07-14] MEDS ORDERED: DEXAMETHASONE OD (17:23)
[2023-07-14] MEDS ORDERED: TOBRAMYCIN OD (17:23)
--- NOTE | 2023-07-14 17:42 | NUR ---
welfare worker was consulted due to patient's caregiver expressing they brought her here for placement at rehab. MAXIM met with patient and caregiver, Valerie P# [phone] to complete assessment. Valerie expressed patient lives with her and until recently she has been doing well but recently she has been falling more often and she is unable to lift patient. SW discussed SNF, LTC and home health. SW explained if [facility] is not inpatient [facility] and patient would likely go LTC and she would live in the facility. SW explained if patient goes LTC then patient would pay her monthly income towards the facility. SW asked Valerie if she would be able to take patient home if doctor does not admit. Valerie stated no she cannot care for her in this condition, she states she is unable to lift her on her own. Valerie expressed their goal for coming to the hospital was for her to be admitted then go to rehab. SW explained that if patient does not meet inpatient requirements she would need to go LTC and would not be receiving daily therapy. SW discussed IPR; however, patient and caregiver are uncertain patient would tolerate 3 hours of therapy a day. SW provided Medicare.gov list of options for nursing facilities. Patient and Caregiver explained they would want referrals sent to [facility] and [facility], if neither could take they would like to look at [facility] in [place]. Valerie reports patient's PCP recently established patient with [facility]. PCP is Dr. Fernandez. Pharmacy is [facility]. MAXIM explained it would be up to the doctor if patient would be admitted and from there they would assist with placement either LTC or SNF depending on medical status. MAXIM explained if patient is not admitted, patient would return home and SW would assist with finding LTC from her home. Becki expressed patient cannot return home as she is afraid of her falling again and she would be unable to care for her. SW explained she would relay the concerns to the doctor and they would determine if patient is able to be admitted. SW provided her direct contact number in case Valerie had additional questions. MAXIM relayed the above information to patient's nurse, doctor and SW director Sherry Hays. SW was notified by doctor that patient will be admitted. MAX[facility] secure [facility]. SW also sent updates to [facility].
[2023-07-14] MEDS ORDERED: [UNRECOGNIZED DRUG - OTHER] OP SCH (19:30)
[2023-07-14] MEDS ORDERED: DEXAMETHASONE OP SCH (19:30)
[2023-07-14] MEDS ORDERED: 1/2 NS 1,000 ML IV SCH (19:30)
[2023-07-14] MEDS ORDERED: POLY B OP SCH (19:30)
[2023-07-14] MEDS ORDERED: Albuterol/Ipratropium 3 MG-0.5 MG/3 ML Neb Soln IH PRN (19:30)
[2023-07-14] MEDS ORDERED: Acetaminophen 325 MG TAB PO PRN (19:30)
[2023-07-14] MEDS ORDERED: Ondansetron 4 MG/2 ML VIAL IV PRN (19:30)
[2023-07-14] MEDS ORDERED: TOBRAMYCIN OP SCH (19:30)
--- NOTE | 2023-07-14 20:05 | NUR ---
Report recieved from NARESH Darden. All questions answered.
[2023-07-14] MEDS ORDERED: cefTRIAXone 1 G in Water For Injection,Sterile 10 ML IV SCH (20:30)
--- NOTE | 2023-07-14 20:45 | NUR ---
Patient arrived to the unit at this time with personal belongings. Vitals obtained. States she has some pain in her knees but denies need for pain meds. Food and water provided, denies any other needs. Assessment and med rec complete. IV in left forearm flushes easily with no complications. Fall risk precautions put in place. Oriented patient to room, bed, call light, phone, and bathroom. Call light and personal items in reach. Bed in low position and bed alarm on.
[2023-07-14 20:50] VITALS: BP 159/73; PULSE 80; TEMP 98.3
[2023-07-14] MEDS ORDERED: Atorvastatin 20 MG TAB PO SCH (21:00)
[2023-07-14] MEDS ORDERED: Azelastine 0.1% Nasal Spray 30 ML BOTTLE NS SCH (21:00)
[2023-07-14] MEDS ORDERED: Heparin 5,000 UNITS/ML 1 ML VIAL SQ SCH (21:00)
[2023-07-14] MEDS ORDERED: Insulin Lispro (HumaLOG) SQ SCH (21:00)
[2023-07-14] MEDS ORDERED: Insulin Glargine-ygfn (Lantus) SQ SCH (21:00)
[2023-07-14] MEDS ORDERED: Carvedilol 6.25 MG TAB PO SCH (21:00)
[2023-07-14] MEDS ORDERED: Sennosides/Docusate 8.6-50 MG TAB PO SCH (21:00)
[2023-07-14 21:20] VITALS: BP_SYST 136
--- NOTE | 2023-07-14 22:07 | NUR ---
Hospitalist Leon called to ask if patient could use her mayorga eye cream for tonight and we could get it sent down and labled in the morning since we do not have in house pharmacy at night. Recieved orders that I could give her the home eye oinment tonight. Med given at 2209.
[2023-07-14 23:33] VITALS: BP 136/64; PULSE 64; TEMP 98.2
[2023-07-15] VITALS (11 sets, daily range): BP systolic 125–175; BP diastolic 54–80; PULSE 61–78; TEMP 97.6–98.3
--- NOTE | 2023-07-15 06:25 | NUR ---
Patient resting in bed. Denies any pain at rest. Denies any needs at this time. Attempted to give morning meds that are to be taken on an empty stomach and patient stated she can't take meds unless it's with food. Educated patient these meds are supposed to be taken on an empty stomach in order for them to work properly, patient refused and stated she would take them when she gets her breakfast. Call light and personal items in reach. Bed in low position and bed alarm on.
[2023-07-15 06:44] LABS: MEAN CELL VOLUME 86 fl (80.0-100.0); MEAN CORPUSCULAR HGB CONC 34 g/dl (33.0-37.0); MEAN PLATELET VOLUME 11.3 fl (7.4-10.4); PLATELET COUNT 104 K/mm3 (130-400); REDCELL DISTRIBUTION WIDTH-CV 13.4 % (11.5-14.5)
[2023-07-15 06:49] LABS: HEMATOCRIT 28.2 % (37.0-47.0); HEMOGLOBIN 9.7 g/dl (12.5-16.0); MEAN CORPUSCULAR HEMOGLOBIN 29 pg (27-31)
[2023-07-15 07:01] LABS: CALCIUM 8.3 mg/dL (8.4-10.2); CREATININE, serum 1.78 mg/dL (0.57-1.11)
[2023-07-15 07:23] LABS: THYROID STIMULATING HORMONE 1.279 uIU/mL (0.350-4.940)
[2023-07-15] MEDS ORDERED: Glucagon 1 MG VIAL IM PRN (07:30)
[2023-07-15] MEDS ORDERED: Dextrose 50% Water 25 GM/50 ML SYRINGE IV PRN (07:30)
[2023-07-15] MEDS ORDERED: Dextrose (Glucose) 15 GM (4 x 3.75 GM) Chewable TABLET PACK PO PRN (07:30)
[2023-07-15] MEDS ORDERED: POLYMYXIN B/TRIMETH OS (08:06)
[2023-07-15] MEDS ORDERED: Escitalopram 10 MG TAB PO SCH (09:00)
[2023-07-15] MEDS ORDERED: Levocetirizine 5 MG **** subs to Cetirizine 10 MG PO SCH (09:00)
[2023-07-15] MEDS ORDERED: Cetirizine 10 MG TAB PO SCH (09:00)
[2023-07-15] MEDS ORDERED: D-Alpha Tocopheryl (Vitamin E) 400 Units CAP PO SCH (09:00)
[2023-07-15] MEDS ORDERED: Polyethylene Glycol 3350 17 GM PDS PO SCH (09:00)
[2023-07-15] MEDS ORDERED: amLODIPine 5 MG TAB PO SCH (09:00)
[2023-07-15] MEDS ORDERED: Mirabegron ER 50 MG TAB PO SCH (09:00)
[2023-07-15] MEDS ORDERED: Clopidogrel 75 MG TAB PO SCH (09:00)
[2023-07-15] MEDS ORDERED: Sodium Chloride 0.65% Nasal Irrig 45 ML BOTTLE NS SCH (09:00)
--- NOTE | 2023-07-15 09:30 | NUR ---
Patient resting in bed, states she wants to take her meds right before breakfast. Alert and oriented x 4, VSS. Pt incontinent for urine, hygiene provided by OT, assisted by student nurse. Jackie barth. Assessment compeleted. Pt very weak even to turn herself to her sides on bed. Continues getting fluids per orders. Meds administered by student nurse. Assisted to sit up to have her breakfast. Oriented for it. No further needs at this time. Call light within reach, bed alarm on.
--- NOTE | 2023-07-15 10:36 | NUR ---
Initial visit: Patient thanked Pulmonary Fellow for looking in on her and offering prayer and God's blessings this morning. Becki says she will keep Pulmonary Fellow in her prayers as well.
--- NOTE | 2023-07-15 10:44 | NUR ---
Patient resting in bed. Fluids running per orders. Assisted patient with breakfast. Patient states she gets dizzy upon standing. Patient incontinent of urine. Hygiene performed, linens changed by OT. Jackie placed. Call light within reach.
--- NOTE | 2023-07-15 13:47 | NUR ---
tire worker met with pt and RN ELIN bocanegra to complete [place] form as patient was transitioned to observation status. Pt verbalized understanding and provided consent of verbal signature due to vision impairment impacting her ability to sign. Pt had no further questions and was assured she has Medicaid as secondary. tire worker met with pt to discuss discharge planning. SW advised [facility] declined patient. [facility] cannot accept due to being out of network and no availbility. SW provided Medicare.gov list of nursing homes and verbally went over list with pt. She did not disagree or combat the discussion. She was informed on long-term care being needed due to needing more care than can be provided by her caregiver at home. She verbalized understanding and states she does not want [facility]. Pt was not familiar with any other nursing homes. She did not provide interest in any facilities. MAXIM called caregiver/DPOA-HC, Ricco [phone] to inform of [facility], [facility], and [facility] declining patient for LTC. Ricco advised why she could not get SNF and MAXIM informed pt she is not meeting Medicare criteria for inpatient status. She went on to disagree with this and stated "what about her dizziness." SW stated they are doing imaging of pt's brain today to assess. MAXIM informed Ricco how when someone is in OBS, they aim to be discharged within 48 hours upon admission due to not meeting medicare inpatient guidelines. Ricco expressed her frustrations and continued to not understand. MAXIM provided verbal listing on long-term care nursing homes in the area for options. She went on to say pt cannot go and she wantas her to return home. She stated, "i don't know" when asked about preferences. She reports she had to make a ton of phone calls regarding this. SW asked what she would like to go- take patient home with her or have her go to LTC. Ricco became more upset and stated, "no I cannnot pick her up. I need to pray about this." She went on to make other comments about SW giving bad news and requesting SW name. SW provided this information and caregiver concluded the call. MAXIM informed Director Sherry Hays of being able to discuss further with pt and Ricco about placement. MAXIM spoke with Ricco and got her to be agreeable and prepared to pay the financial obligation for a long term per Medicaid's rules. MAXIM faxed referrals to: [facility], [facility] (reviewing), [facility], [facility], [facility], [facility], [facility], [facility], [facility], [facility] ([facility]), and [facility] (out of network.) MAXIM later received a call from [facility] who expressed interest, but reports they cannot get an answer until Tuesday when staff is back in. Discharge Plan: long-term care
[2023-07-15] MEDS ORDERED: Gadoterate 15 ML VIAL IV ONE (14:25)
--- NOTE | 2023-07-15 16:02 | NUR ---
cabin worker received a call from [facility] who reports they can visit pt Tuesday if she is still here.
--- NOTE | 2023-07-15 18:34 | NUR ---
Patient asssisted to have her meals, eating well. Denies any pain. Refuses to get heparin SQ. States she does not need it. Purewick in place. Report will be given to candis RN.
--- NOTE | 2023-07-15 19:00 | NUR ---
REPORT RECEIVED FROM JUAN JOSE INFANTE. PATIENT IS SITTING UP IN BED TALKING TO THIS NURSE. ALERT AND ORIENTED. PATIENT DENIES PAIN OR DISCOMFORT AT THIS TIME. WILL MONITOR
--- NOTE | 2023-07-15 20:22 | NUR ---
THIS NURSE SPOKE WITH PATIENT'S CAREGIVER OVER THE PHONE. THIS NURSE GAVE HER AN UPDATE ON PATIENT'S STATUS. JAQUI STATED SHE WANTS TO SPEAK TO PRESIDENT AND CHIEF OPERATING OFFICER TOMORROW AM. SHE EXPRESSED THAT SHE HAS 8 PEOPLE HIRED TO PROVIDE HOME HEALTH, HOWEVER, IF LTC IS WARRANTED, SHE PREFERS [facility], [facility], OR [facility]IA [facility]. SHE SPECIFICALLY EXPRESSED NOT WANTING PATIENT TO GO TO [facility]. JAQUI (CAREGIVER) [phone]
--- NOTE | 2023-07-15 20:50 | NUR ---
PATIENT RESTING IN BED. SHIFT ASSESSMENT COMPLETE. NS INFUSING PER MAR. PATIENT EATING PB AND CRACKERS. DENIES PAIN OR DISCOMFORT AT THIS TIME
[2023-07-15] MEDS ORDERED: Patient's Own Medication Item OP SCH (21:00)
[2023-07-16] VITALS (15 sets, daily range): BP systolic 126–186; BP diastolic 47–72; PULSE 64–90; TEMP 97.5–98.7
--- NOTE | 2023-07-16 00:44 | NUR ---
PATIENT RESTING WITH EYES CLOSED. DENIES NEEDS OR CONCERNS AT THIS TIME.
--- NOTE | 2023-07-16 05:49 | NUR ---
PATIENT RESTING IN BED WITH EYES CLOSED. THIS NURSE ATTEMPTED TO ADMINISTER AM MEDS. PATIENT REFUSED.
[2023-07-16 06:59] LABS: BASO % 0.8 % (0.0-2.0); EOS # 0.7 K/mm3 (0.0-0.7); EOS % 14.6 % (0.0-4.0); GRAN # 2.4 K/mm3 (1.4-6.5); GRAN % 50.2 % (42.2-75.2); HEMOGLOBIN 10.1 g/dl (12.5-16.0); LYMPH # 1.2 K/mm3 (1.2-3.4); LYMPH % 24.6 % (20.0-51.0); MEAN CELL VOLUME 86 fl (80.0-100.0); MEAN CORPUSCULAR HEMOGLOBIN 29 pg (27-31); MEAN CORPUSCULAR HGB CONC 34 g/dl (33.0-37.0); MEAN PLATELET VOLUME 11.9 fl (7.4-10.4); MONO # 0.5 K/mm3 (0.1-0.6); MONO % 9.6 % (1.7-9.3); PLATELET COUNT 96 K/mm3 (130-400); RED BLOOD COUNT 3.48 M/mm3 (4.10-5.30); REDCELL DISTRIBUTION WIDTH-CV 13.1 % (11.5-14.5)
[2023-07-16 07:07] LABS: HEMATOCRIT 29.9 % (37.0-47.0)
[2023-07-16 07:25] LABS: CALCIUM 8.5 mg/dL (8.4-10.2); CREATININE, serum 1.94 mg/dL (0.57-1.11); POTASSIUM 3.8 mEq/L (3.5-4.5)
--- NOTE | 2023-07-16 11:42 | NUR ---
Assessment completed this am. Repositioning schedule in place q2hr. Refuses Heparin stating that she is on Plavix and ASA and doesn't need it. Education provided on purpose of VTE but patient still declines. Dr. Christiansen made aware and order rec'd for SCDs. Pt had bowel movement this am and declines scheduled miralax and senekot. Incontinent of both bowel and bladder- purewick in place. IVF. Nickel size scab noted to left heel- acquacel placed. Declines bath, states she just got cleaned up this morning and refuses oral care. Caregiver/friend at bedside.
[2023-07-16] MEDS ORDERED: amLODIPine 5 MG TAB PO ONE (13:15)
--- NOTE | 2023-07-16 14:15 | NUR ---
SW met with patient and her evaluation assistant/friend Valerie. SW updated them on being referrals for fpc with [facility] and [place] would most likely wont be before Tuesday. Both patient and Valerie communicated understanding. Patient's evaluation assistant/friend expressed that she would like patient to not be too far for her to visit and also shared that patient has "tremendous support and assistance for caretaking at her home." SW would provide updates to them as recieved over the weekend.
[2023-07-16] MEDS ORDERED: 1/2 NS 1,000 ML IV SCH (15:00)
--- NOTE | 2023-07-16 18:00 | NUR ---
Caregiver at bedside throughout day. Assists patient with meals. Patient has denied pain or needs throughout day. Continue to reposition q2. Pt compliant with SCD for a few hours but just requested to take a break- SCD currently off. New order rec'd for amlodipine-nost recent blood pressure improved since receiving.
--- NOTE | 2023-07-16 19:05 | NUR ---
Bedside report received from NARESH Russell. Pt is currently resting in bed visiting with home caregiver at bedside. Pt has no request at this time. Call light within reach and fall precautions in place.
--- NOTE | 2023-07-16 20:28 | NUR ---
Shift assessment completed. Pt is A&O x4. VSS. IV to Lt forearm patent with no swelling, redness, or drainage. Q2HR repositioning in place with heels floated on pillows. Pt reports no pain at this time. Pt has no request at this time. Family at bedside. Call light within reach and fall precautions in place.
[2023-07-17] VITALS (10 sets, daily range): BP systolic 92–175; BP diastolic 51–97; PULSE 58–81; TEMP 97.4–98.3
--- NOTE | 2023-07-17 06:44 | NUR ---
Bedside report given to RN Cassie. Pt resting in bed with eyes closed. Call light within reach and fall precautions in place.
--- NOTE | 2023-07-17 07:45 | NUR ---
Patient laying in bed sleeping, easily awakened with verbal command. Refusing to have nursing staff change the patients sheets because patient is incontinent of urine. Patient refusing to take PO meds and eat breakfast. Nursing staff did finally talk the patient into changing bed sheets and a bed bath, but still refusing to eat and take AM meds. VSS. IV CDI, fluids infusing. Purewick in place. Call light within reach. Bed alarm on
[2023-07-17] MEDS ORDERED: amLODIPine 5 MG TAB PO SCH (09:00)
[2023-07-17] MEDS ORDERED: amLODIPine 10 MG TAB PO SCH (09:00)
[2023-07-17 17:01] LABS: BASO % 0.7 % (0.0-2.0); EOS # 0.6 K/mm3 (0.0-0.7); EOS % 12.4 % (0.0-4.0); GRAN # 2.6 K/mm3 (1.4-6.5); GRAN % 55.7 % (42.2-75.2); LYMPH % 21.6 % (20.0-51.0); MEAN CELL VOLUME 83 fl (80.0-100.0); MEAN CORPUSCULAR HGB CONC 35 g/dl (33.0-37.0); MEAN PLATELET VOLUME 11.6 fl (7.4-10.4); MONO # 0.4 K/mm3 (0.1-0.6); MONO % 9.4 % (1.7-9.3); PLATELET COUNT 96 K/mm3 (130-400); RED BLOOD COUNT 3.37 M/mm3 (4.10-5.30); REDCELL DISTRIBUTION WIDTH-CV 13.2 % (11.5-14.5)
[2023-07-17 17:02] LABS: HEMATOCRIT 28.1 % (37.0-47.0); HEMOGLOBIN 9.8 g/dl (12.5-16.0); MEAN CORPUSCULAR HEMOGLOBIN 29 pg (27-31)
[2023-07-17 17:16] LABS: CALCIUM 8.2 mg/dL (8.4-10.2); CREATININE, serum 1.63 mg/dL (0.57-1.11); POTASSIUM 4.1 mEq/L (3.5-4.5)
[2023-07-18] VITALS (15 sets, daily range): BP systolic 119–185; BP diastolic 52–89; PULSE 69–98; TEMP 97.6–98.5
--- NOTE | 2023-07-18 05:33 | NUR ---
PT REFUSED TO TAKE PROTONIX AND SYNTHROID THIS AM. OTHERWISE HAD AN UNEVENTFUL NIGHT. REPOSITIONED Q2. SLEPT WELL OVERNIGHT. CALL LIGHT WITHIN REACH, BED ALARM SET.
[2023-07-18] MEDS ORDERED: Magnesium Sulfate 4% 50 ML IV ONE (08:00)
--- NOTE | 2023-07-18 08:00 | NUR ---
Patient laying in bed sleeping, easily awakened with verbal command. VSS. IV CDI, fluids infusing. Purewick in place. SCD bilateral legs. Denies pain with movement. Call light within reach. Bed alarm on
[2023-07-18 11:17] LABS: BASO % 0.7 % (0.0-2.0); EOS # 0.6 K/mm3 (0.0-0.7); EOS % 12.6 % (0.0-4.0); GRAN # 2.5 K/mm3 (1.4-6.5); GRAN % 55.2 % (42.2-75.2); HEMOGLOBIN 10.2 g/dl (12.5-16.0); LYMPH # 1.1 K/mm3 (1.2-3.4); LYMPH % 24.3 % (20.0-51.0); MEAN CELL VOLUME 84 fl (80.0-100.0); MEAN CORPUSCULAR HEMOGLOBIN 30 pg (27-31); MEAN CORPUSCULAR HGB CONC 35 g/dl (33.0-37.0); MEAN PLATELET VOLUME 11.3 fl (7.4-10.4); MONO # 0.3 K/mm3 (0.1-0.6); PLATELET COUNT 97 K/mm3 (130-400); RED BLOOD COUNT 3.42 M/mm3 (4.10-5.30); REDCELL DISTRIBUTION WIDTH-CV 13.2 % (11.5-14.5)
[2023-07-18 11:24] LABS: HEMATOCRIT 28.8 % (37.0-47.0)
[2023-07-18 11:48] LABS: CALCIUM 8.5 mg/dL (8.4-10.2); CREATININE, serum 1.58 mg/dL (0.57-1.11); MAGNESIUM 1.9 mg/dL (1.6-2.6)
--- NOTE | 2023-07-18 15:26 | NUR ---
Mission Systems Engineer met with patient and her caregiver, Karely before rounds to discuss placement options. MAXIM advised that [facility] is able to accept. Karely advised she cannot drive so this would not be an option as she could not visit. MAXIM advised that [facility] and [facility] have declined, leaving [facility] as the only option. Karely again stated [facility] was not an option. Patient inquired about going home and MAXIM advised she would speak with the team about this. MAXIM attended clinical rounds with the team and Hospitalist advised that at this time, discharge home would not be a safe plan for patient. MAXIM was also notified that patient is being upgraded to Inpatient status. MAXIM again met with patient to discuss placement options and patient mentioned [facility] in [place] as she has a friend in [place]. Karely again interjected to stated she cannot drive, therefore would be unable to visit. Karely made comments such as "well I guess if you want to go be by yourself" and "I guess I don't need to see you". Patient appeared to be annoyed by these comments and at one point stated "up yours" to Karely, who then stated they've been together 25 years and fight like sisters. MAXIM faxed referral to [facility] in [place] and spoke with a staff member who advised they would review it today. MAXIM also contacted Yvonne at [facility] who advised she did not receive initial referral, so SW resent it. MAXIM Grissom advised early this morning that [facility] could accept as long as they can secure a following physician and if patient is agreeable to change back to Medicare A/B. MAXIM contacted [facility], [place], and [facility] who continue to review referral. [facility] can also accept. MAXIM followed up with patient again to review accepting facilities, [facility] and [facility]. MAXIM also updated on facilities still reviewing. Patient then stated she would like referral sent to [facility] as she would prefer to stay in town over going out of town. Karely was observed shaking her head "no" and made remarks about not going to [facility]. Karely stated she was told there was a male staff member in the kitchen that was trying to "get with" people there and questioned if patient would be safe. Patient still firm that she wants referral sent to [facility]. MAXIM suggested facilitating a phone call between Hernandez and patient, which she and Karely are agreeable to. MAXIM also advised them that she would submit to [facility] to determine if [employer] would auth a skilled stay. MAXIM submitted clinicals to [facility]. Then MAXIM contacted [facility] and gave referral. Molly, Mortgage Loan Interviewer advised she spoke with Karely about the above concerns and stated these were rumors started by a disgruntled employee that was let go last week. Molly also advised they cannot accept [employer]. Discharge Plan: Pending auth for SNF. [facility] accept, other facilities still reviewing.
--- NOTE | 2023-07-18 21:00 | NUR ---
PT A&O X4 LAYING IN BED. SHIFT ASSESSMENT COMPLETE & HS MEDS GIVEN PER MAR. PT DENIES PAIN. INT TO LEFT FOREARM PATENT & IVF INFUSING TO RT HAND VIA PUMP. HEELS FLOATED & BILAT BOOTS PUT ON. PUREWICK IN PLACE WITH YELLOW OUTPUT. PT DENYING OTHER NEEDS. CALL LIGHT IN REACH
[2023-07-19] VITALS (13 sets, daily range): BP systolic 147–174; BP diastolic 43–73; PULSE 56–78; TEMP 97.6–98.3
--- NOTE | 2023-07-19 05:44 | NUR ---
PT RESTING IN BED WITH UNLABORED RESP. REPOSTIONED THROUGHOUT THE NIGHT. DENIES OTHER NEEDS THIS MORNING. REFUSED PROTONIX & SYNTHROID, STATES SHE "CAN'T TAKE ON EMPTY STOMACH" & WILL TAKE THEM LATER. CALL LIGHT IN REACH
--- NOTE | 2023-07-19 09:10 | NUR ---
Pt eating breakfast at this time. Friend at bedside assisting her. No complaints of pain at this time. Pt/friend deny any needs at this time, will continue to monitor
[2023-07-19 09:33] LABS: EOS # 0.5 K/mm3 (0.0-0.7); EOS % 13.4 % (0.0-4.0); GRAN # 1.9 K/mm3 (1.4-6.5); GRAN % 50.1 % (42.2-75.2); HEMOGLOBIN 10.3 g/dl (12.5-16.0); MEAN CELL VOLUME 85 fl (80.0-100.0); MEAN CORPUSCULAR HEMOGLOBIN 29 pg (27-31); MEAN CORPUSCULAR HGB CONC 34 g/dl (33.0-37.0); MEAN PLATELET VOLUME 11.2 fl (7.4-10.4); MONO # 0.4 K/mm3 (0.1-0.6); PLATELET COUNT 100 K/mm3 (130-400); RED BLOOD COUNT 3.54 M/mm3 (4.10-5.30); REDCELL DISTRIBUTION WIDTH-CV 13.2 % (11.5-14.5)
[2023-07-19 09:36] LABS: HEMATOCRIT 29.9 % (37.0-47.0)
[2023-07-19 09:47] LABS: CALCIUM 8.4 mg/dL (8.4-10.2); CREATININE, serum 1.59 mg/dL (0.57-1.11); POTASSIUM 3.9 mEq/L (3.5-4.5)
[2023-07-19] MEDS ORDERED: Metoprolol Tartrate 25 MG TAB PO SCH (11:00)
--- NOTE | 2023-07-19 11:13 | NUR ---
D: Initial visit: Radio Producer stopped by room on rounds. A: Pt was resting and content. Pt asked for prayer, wood cabinetmaker prayed with pt and her family. Both appreciated the visit. P: Radio Producer informed pt that if she needed anything from the wood cabinetmaker area to let her nurse know. Radio Producer will follow up as needed.
--- NOTE | 2023-07-19 11:28 | NUR ---
PT in working with pt. Was able to obtain orthostatic VS with her assistance. Pt was a max assist. First time standing, she only stood for a couple seconds and sat down without warning. Second time we were able to get a standing BP before sitting. Friend at bedside states that she passing out all the time at home and almost everytime she has a bowel movement. PT remained with pt when done with VS
--- NOTE | 2023-07-19 13:46 | NUR ---
mat worker secure emailed updates to [facility]. MAXIM faxed updates to [facility] and [facility].
--- NOTE | 2023-07-19 15:00 | NUR ---
Received report from Lucie Hdez RN. Pt laying in bed with friend at bedside. No further needs at this time. Call light in reach and bed alarm on.
--- NOTE | 2023-07-19 15:00 | NUR ---
Pt laying in bed. Roommate (Valerie) at bedside. Pt is A&Ox3. VSS. S1S2. Clear lung sounds. Pt has purewik in place. Reddened, blancahble, dime-sized area on R heel. Open blister on L heel (dime-sized) - heel mepalex pad on. Pt has both feet in protective boots. IV in R hand and L forearm are patent. No further needs at this time. Pt is aware of surroundings and call light in hand. Bed alarm on.
--- NOTE | 2023-07-19 15:29 | NUR ---
[facility] and [facility] declined referral. MAXIM met with patient and her caregiver, Karely to again update them that the only two facilities that can accept are [facility] or [facility]. Karely again stated she cannot drive out there to visit and stated "people when they can't get visitors". Karely stated she has been in contact with Chinedu at [facility] and has asked them to reconsider. If [facility] cannot accept, patient requested referrals be sent to [facility] because if it has to be a facility out of town, they would prefer [facility]. MAXIM faxed a referral to all of the [facility] SNFs including [facility], [facility], [facility], [place], [facility], [facility], [facility], [place] [facility], [facility], [facility], and [facility].
--- NOTE | 2023-07-19 15:59 | NUR ---
Maintenance Worker spoke with Calista at [facility] who advised they can accept patient.
--- NOTE | 2023-07-19 21:00 | NUR ---
Pt. laying in bed. Pt. is A&OX3, assessment complete. INT to lt. forearm patent. IV to rt. hand patent, IV fluids infusing per orders. Pt. denies pain. Pt. refused heparin injection and stool softener. Pt. Denies further needs, call light within reach.
[2023-07-20 01:31] VITALS: BP_SYST 147
[2023-07-20 03:45] VITALS: BP 143/76; PULSE 56; TEMP 98.1
[2023-07-20 04:49] VITALS: BP_SYST 143
[2023-07-20 07:13] VITALS: BP 160/75; PULSE 77; TEMP 97.7
--- NOTE | 2023-07-20 08:00 | NUR ---
Patient laying in bed resting, refusing to eat and not take any scheduled meds until eating. A&Ox4. VSS. IV CDI, fluids infusing. Heel protectors on, legs floated. Purewick in place. Call light within reach.
[2023-07-20 11:31] VITALS: BP 161/71; PULSE 69; TEMP 98.2
[2023-07-20] MEDS ORDERED: LOPRESSOR 225 MG/TAB PO (11:36)
[2023-07-20] MEDS ORDERED: PROTONIX 40MG T40 MG PO (11:36)
[2023-07-20] MEDS ORDERED: INSULIN AS100 UNIT/2 SQ (11:41)
--- NOTE | 2023-07-20 12:45 | NUR ---
Report called to [place]. Patient assisted into an Uber with 2xnursing staff. Discharge paperwork and personal belongings with the patient. IV removed, tip intact. Gauze and coban applied. Nursing staff assisted with getting the patient dressed. No further needs expressed
--- NOTE | 2023-07-20 13:34 | NUR ---
Security Checker was notified that [facility] will not accept patient, per their estate administrator. MAXIM met with patient and had Karely on speakerphone to review accepting facilities: [facility], [facility], [facility], and [facility]. Karely inqured about [facility] in [place]. MAXIM followed up with Kaity at [facility] who advised they can accept today but do not have transportation. MAXIM followed up with patient and Karely who are agreeable to discharge to [facility]. Karely stated she cannot drive patient due to her "foot drop". Once orders were finalized, MAXIM scheduled patient an UBER. Kaity at [facility] advised they will assist her out of the vehicle once she arrives. MAXIM provided discharge orders via secure email. MAXIM also provided auth information to [facility]. Karely rode to [place] with patient in the UBER and inquired about the sanitation truck driver taking her back to [place]. MAXIM told Karely it would be her responsibility to schedule herself a ride back to [facility]. Discharge Plan; [facility]
--- NOTE | 2023-07-25 12:30 | NUR ---
boat worker received a call from Elizabeth at [facility]. SW advised pt had already found placement.
== END 2023-07-20 12:55 | DRG 312 ==
LOC: COL.ER 15:43 → MEDICAL 18:38
PROVIDERS: Emergency Medicine; Physician Assistant; ADMIT Hospitalist
DX: I95.1 Orthostatic hypotension (principal); N39.0 Urinary tract infection, site not specified; I25.10 Atherosclerotic heart disease of native coronary artery without angina pectoris; E78.5 Hyperlipidemia, unspecified; F32.A Depression, unspecified; E03.9 Hypothyroidism, unspecified; R62.7 Adult failure to thrive; E86.0 Dehydration; I65.21 Occlusion and stenosis of right carotid artery; N18.30 Chronic kidney disease, stage 3 unspecified; R53.81 Other malaise; M25.562 Pain in left knee; M25.561 Pain in right knee; D69.6 Thrombocytopenia, unspecified; D64.9 Anemia, unspecified; I12.9 Hypertensive chronic kidney disease with stage 1 through stage 4 chronic kidney disease, or unspecified chronic kidney disease; K21.9 Gastro-esophageal reflux disease without esophagitis; J30.2 Other seasonal allergic rhinitis; I08.0 Rheumatic disorders of both mitral and aortic valves; E11.22 Type 2 diabetes mellitus with diabetic chronic kidney disease; H54.3 Unqualified visual loss, both eyes; E11.39 Type 2 diabetes mellitus with other diabetic ophthalmic complication; Z91.81 History of falling; Z95.1 Presence of aortocoronary bypass graft; I25.2 Old myocardial infarction; Z90.710 Acquired absence of both cervix and uterus; Z86.73 Personal history of transient ischemic attack (TIA), and cerebral infarction without residual deficits; Z88.1 Allergy status to other antibiotic agents; Z88.5 Allergy status to narcotic agent; Z88.0 Allergy status to penicillin; Z88.2 Allergy status to sulfonamides; Z88.8 Allergy status to other drugs, medicaments and biological substances; Z79.4 Long term (current) use of insulin; Z79.02 Long term (current) use of antithrombotics/antiplatelets; Z79.899 Other long term (current) drug therapy; Z79.890 Hormone replacement therapy; Z23 Encounter for immunization
CPT/HCPCS: A9575; G0378; J0696; J1644; J1815; J1956; J3475

== ENCOUNTER 2023-11-10 07:52 | Outpatient (CLI) | payer MEDICARE, MEDICAID ==
[2008-12-11 01:54] VITALS: BP 172/82
[~2023-11-10] VITALS: Ht 172.8 cm; Wt 61.0 kg
[~2023-11-10 07:52] MED LIST changes: +ASTELIN NASAL S34 ML NS; +DEXAMETHASONE OD; +INSULIN AS100 UNIT/2 SQ; +LEXAPRO 10MG10 MG PO; +LOPRESSOR 225 MG/TAB PO; +NOVLOG SQ; +OCEAN NASAL SPR45 ML NS; +POLYMYXIN B/TRIMETH OS; +PROTONIX 40MG T40 MG PO; +TOBRAMYCIN OD; +VITAMIN D 400400 IU PO; +VITAMIN E 400 U4001 PO; +XYZAL5 MG PO
[2023-11-10 08:22] VITALS: BP 184/70; PULSE 58; TEMP 98.1
[2023-11-10] MEDS ORDERED: GENTEALSEVERE OP (08:48)
[2023-11-10] MEDS ORDERED: NOVOLOG 100U100 U/M1 SQ (08:50)
[2023-11-10 10:15] VITALS: BP 177/60; PULSE 56
[2023-11-10 10:30] VITALS: BP 169/62; PULSE 58
[2023-11-10 10:45] VITALS: BP 152/57; PULSE 57
[2023-11-10 11:00] VITALS: BP 159/56; PULSE 55
--- NOTE | 2023-11-10 11:37 | NUR ---
PT TOLERATED RECOVERY PERIOD WELL. VS REMAINED WITHIN NORMAL LIMITS. PT AND AIR/OCEAN EXPORT CLERK VERBALIZED UNDERSTANDING OF DISCHARGE INSTRUCTIONS. IV DISCONTINUED AND PT WAS ASSISTED TO MAIN LOBBY VIA WHEELCHAIR. PT FREE FROM ACUTE CONCERNS AND COMPLAINTS UPON DISCHARGE.
== END 2023-11-10 11:39 | disposition home or self-care (01) ==
LOC: COL.CAR 07:52
DX: R42 Dizziness and giddiness (principal); I95.1 Orthostatic hypotension

== ENCOUNTER 2024-02-22 12:24 | Inpatient (IN) | payer MEDICARE, MEDICAID ==
[~2024-02-22] VITALS: Ht 172.7 cm; Wt 65.9 kg
[~2024-02-22 12:24] MED LIST changes: +CIPRO 500MG TA500 MG PO; +COZAAR 25MG25 MG/TAB PO; +FLORINEF ACETA0.1 MG PO; +GENTEAL TEARS OU; +GENTEALSEVERE OP; +LIPITOR 40MG TA40 MG PO; +NASAL MOISTURIZ45 ML NS; +NORVASC 5MG5 MG/TAB PO; +PACERONE400 MG PO; +PROBIOTIC BLEN1 EACH PO; -VITAMIN D 400400 IU PO; +VITAMIN D3400 I1 PO; -VITAMIN E 400 U4001 PO
[2024-02-22 13:06] LABS: BASO # 0.1 K/mm3 (0.0-0.2); BASO % 0.8 % (0.0-2.0); EOS # 0.3 K/mm3 (0.0-0.7); EOS % 4.9 % (0.0-4.0); GRAN # 4.6 K/mm3 (1.4-6.5); GRAN % 72.2 % (42.2-75.2); LYMPH # 0.9 K/mm3 (1.2-3.4); LYMPH % 14.8 % (20.0-51.0); MEAN CELL VOLUME 93 fl (80.0-100.0); MEAN CORPUSCULAR HGB CONC 33 g/dl (33.0-37.0); MEAN PLATELET VOLUME 11.5 fl (7.4-10.4); MONO # 0.5 K/mm3 (0.1-0.6); MONO % 7.1 % (1.7-9.3); PLATELET COUNT 136 K/mm3 (130-400); RED BLOOD COUNT 3.04 M/mm3 (4.10-5.30); REDCELL DISTRIBUTION WIDTH-CV 14.2 % (11.5-14.5)
[2024-02-22 13:08] LABS: HEMATOCRIT 28.4 % (37.0-47.0); HEMOGLOBIN 9.3 g/dl (12.5-16.0); MEAN CORPUSCULAR HEMOGLOBIN 31 pg (27-31)
[2024-02-22 13:10] LABS: ALBUMIN 2.7 g/dL (3.4-4.8); BILIRUBIN,TOTAL 0.5 mg/dL (0.2-1.2); CALCIUM 8.2 mg/dL (8.4-10.2); CREATININE, serum 2.55 mg/dL (0.57-1.11); POTASSIUM 4.7 mEq/L (3.5-4.5); TOTAL PROTEIN 6.8 g/dl (6.2-8.1)
[2024-02-22 13:17] LABS: INR 1.1 (0.8-3.0); PROTHROMBIN TIME 11.7 SECONDS (9.7-12.8)
[2024-02-22 13:20] LABS: PARTIAL THROMBOPLASTIN TIME 35.1 SECONDS (26.0-37.0)
[2024-02-22 13:21] LABS: TROPONIN-I 0.066 ng/mL (0.00-0.033)
[2024-02-22] MEDS ORDERED: Albuterol/Ipratropium 3 MG-0.5 MG/3 ML Neb Soln IH SCH ×2 (14:45→19:00)
[2024-02-22] MEDS ORDERED: Furosemide 40 MG/4 ML VIAL IV SCH (15:52)
[2024-02-22] MEDS ORDERED: Albuterol/Ipratropium 3 MG-0.5 MG/3 ML Neb Soln IH PRN (16:00)
[2024-02-22] MEDS ORDERED: Acetaminophen 500 MG TAB PO PRN (16:00)
[2024-02-22] MEDS ORDERED: Ondansetron 4 MG/2 ML VIAL IV PRN (16:00)
[2024-02-22] MEDS ORDERED: Glucagon 1 MG VIAL IM PRN (16:15)
[2024-02-22] MEDS ORDERED: Dextrose 50% Water 25 GM/50 ML SYRINGE IV PRN (16:15)
[2024-02-22] MEDS ORDERED: Dextrose (Glucose) 15 GM (4 x 3.75 GM) Chewable TABLET PACK PO PRN (16:15)
[2024-02-22] MEDS ORDERED: K-DUR 10 MEQ T10 MEQ PO (16:41)
[2024-02-22] MEDS ORDERED: ALBUTEROL0.83 MG/ML IH (16:42)
[2024-02-22] MEDS ORDERED: LASIX 20MG TABL20 MG PO (16:42)
[2024-02-22 17:00] VITALS: BP_SYST 146
[2024-02-22] MEDS ORDERED: Lactase 9,000 Units TAB PO SCH (17:00)
[2024-02-22] MEDS ORDERED: Insulin Lispro (HumaLOG) SQ SCH (17:00)
[2024-02-22] MEDS ORDERED: Carvedilol 3.125 MG TAB PO SCH (17:00)
--- NOTE | 2024-02-22 17:18 | NUR ---
Patient to room 351 by bed from the ED, friend with the patient. A&Ox4. VSS 4L OM. IV CDI. Zelaya intact. Heels floated. Patient positioned for comfort. Nurse oriented the patient to location, room and call light. Call light within reach
[2024-02-22 17:36] VITALS: BP 146/63; PULSE 63; TEMP 98
[2024-02-22 19:38] VITALS: BP 168/54; PULSE 56; TEMP 99.1
--- NOTE | 2024-02-22 19:59 | NUR ---
Bedside report completed at 1850. Patient accompained by partner Leann. Patient legally blind and bedbound. Assessment completed. R wrist IV noted, C/D/I. Night medications passed without issue. Patient refused Heparin as she states she is already on Plavix and Aspirin 81mg. Patient refused fast acting lispro insulin. Bed lowered and locked, call tejeda within reach.
[2024-02-22] MEDS ORDERED: Heparin 5,000 UNITS/ML 1 ML VIAL SQ SCH (21:00)
[2024-02-22] MEDS ORDERED: Atorvastatin 40 MG TAB PO SCH (21:00)
[2024-02-22] MEDS ORDERED: Insulin Glargine-ygfn (Lantus) SQ SCH (21:00)
[2024-02-22 21:13] VITALS: BP_SYST 168
[2024-02-22 23:15] VITALS: BP 179/70; PULSE 61; TEMP 98.8
[2024-02-22 23:36] VITALS: BP_SYST 179
[2024-02-23] VITALS (12 sets, daily range): BP systolic 143–180; BP diastolic 57–74; PULSE 55–63; TEMP 98.1–99
[2024-02-23 06:15] LABS: BASO % 0.6 % (0.0-2.0); EOS # 0.2 K/mm3 (0.0-0.7); GRAN # 3.5 K/mm3 (1.4-6.5); GRAN % 66.7 % (42.2-75.2); LYMPH # 1.1 K/mm3 (1.2-3.4); LYMPH % 19.8 % (20.0-51.0); MEAN CELL VOLUME 90 fl (80.0-100.0); MEAN CORPUSCULAR HGB CONC 34 g/dl (33.0-37.0); MEAN PLATELET VOLUME 11.8 fl (7.4-10.4); MONO # 0.5 K/mm3 (0.1-0.6); MONO % 8.7 % (1.7-9.3); PLATELET COUNT 132 K/mm3 (130-400); RED BLOOD COUNT 2.98 M/mm3 (4.10-5.30)
[2024-02-23 06:19] LABS: HEMATOCRIT 26.9 % (37.0-47.0); MEAN CORPUSCULAR HEMOGLOBIN 30 pg (27-31)
[2024-02-23 06:34] LABS: CALCIUM 8.3 mg/dL (8.4-10.2); CREATININE, serum 2.71 mg/dL (0.57-1.11); MAGNESIUM 1.8 mg/dL (1.6-2.6); POTASSIUM 4.1 mEq/L (3.5-4.5)
--- NOTE | 2024-02-23 07:00 | NUR ---
PT RESTING IN BED. PT IS ON RA. PT IS SR ON TELE. PT HAS INDWELLING CATHETER DRAINING YELLOW URINE. PT IS COMPLETELY BLIND. PT IS AXOX4. PT IS A FALL RISK. FALL PRECAUTIONS IN PLACE. BEDALARM ACTIVE. PT HAS CALL LIGHT AND SHOWN WHERE [facility] IS. INSTRUCTED TO CALL WITH ALL NEEDS.
[2024-02-23] MEDS ORDERED: [UNRECOGNIZED DRUG - OTHER] PO SCH (09:00)
[2024-02-23] MEDS ORDERED: Clopidogrel 75 MG TAB PO SCH (09:00)
[2024-02-23] MEDS ORDERED: Cetirizine 10 MG TAB PO SCH (09:00)
[2024-02-23] MEDS ORDERED: CHOLECALCIFEROL PO SCH (09:00)
[2024-02-23] MEDS ORDERED: Furosemide 40 MG/4 ML VIAL IV SCH (09:00)
[2024-02-23] MEDS ORDERED: Fludrocortisone 0.1 MG TAB PO SCH (09:00)
[2024-02-23] MEDS ORDERED: Sodium Chloride 0.65% Nasal Irrig 45 ML BOTTLE NS SCH (09:00)
[2024-02-23] MEDS ORDERED: Amiodarone 200 MG TAB PO SCH (09:00)
[2024-02-23] MEDS ORDERED: Mirabegron ER 50 MG TAB PO SCH (09:00)
[2024-02-23] MEDS ORDERED: Levocetirizine 5 MG **** subs to Cetirizine 10 MG PO SCH (09:00)
[2024-02-23] MEDS ORDERED: Escitalopram 10 MG TAB PO SCH (09:00)
--- NOTE | 2024-02-23 10:57 | NUR ---
0845-EUGENE DUNBAR NOTIFIED OF ELEVATED BP'S. STATES SHE WILL REVIEW.
--- NOTE | 2024-02-23 14:18 | NUR ---
Automotive Consultant met with patient and her caregiver/DPOA-HC, Karely (ph#[phone]) to discuss discharge planning. Patient was recently admitted to this hospital and was discharged home with Home Health services through [facility]. Patient was seen by her primary care provider, Dr. Fernandez since that discharge. Patient gets her medications from [facility] and Karely advised patient also received a nebulizer recently which has helped, however patient has still had shortness of breathe. Patient does not normally use oxygen at home. Patient has a hospital bed at [facility] that was given to them, however, Karely advised they have been trying to get a fully electric one to reduce risk of falling. Per her last admission, they have been trying to get a new wheelchair as well, which no progress has been made on. Patient has 84 hours a week available of caregiving which is provided by hired caregivers as well as Karely. Patient needs assistance with all ADLS. PT evaluated patient and recommended SNF, however patient and Karely are not open to this at this time. Karely advised it takes too long to recover after being in a group home. Karely stated she feels patient will get just as much care at home, where she prefers to be. Patient has [facility] and [facility] to get to all of her appointments. SW faxed referral/updates to [facility]. Patient has DPOA-HC in EMR designating Karely. Discharge Plan: Home with [facility], recommendation is for SNF and patient declined.
[2024-02-23] MEDS ORDERED: amLODIPine 5 MG TAB PO SCH (14:30)
--- NOTE | 2024-02-23 20:13 | NUR ---
Patient agreeable to PRN Tylenol at this time. Will give Korina PO when available along with Flexaril and Ativan PO. Leads readjusted and meds passed.
--- NOTE | 2024-02-23 20:36 | NUR ---
Bedside report completed. Patient accompaned bedside by partner Leann. Patient denies any complaints and reports resolving wheezing. Assessment completed bedside. Patient is blind and requires verbal assistance. Right wrist IV present, noted to be C/D/I. Night medications passed and insulin given as ordered. Patient still refused Subq heparin at this time. Patient and partner reeducated on the need for an anticoagulate while inpatient. Bed lowered and locked, call tejeda within reach.
[2024-02-24] VITALS (9 sets, daily range): BP systolic 135–184; BP diastolic 60–67; PULSE 53–63; TEMP 97.6–98.5
[2024-02-24 06:16] LABS: BASO % 0.6 % (0.0-2.0); EOS # 0.2 K/mm3 (0.0-0.7); EOS % 4.7 % (0.0-4.0); GRAN % 60.5 % (42.2-75.2); LYMPH # 1.1 K/mm3 (1.2-3.4); MEAN CELL VOLUME 89 fl (80.0-100.0); MEAN CORPUSCULAR HGB CONC 33 g/dl (33.0-37.0); MEAN PLATELET VOLUME 11.4 fl (7.4-10.4); MONO # 0.6 K/mm3 (0.1-0.6); MONO % 11.8 % (1.7-9.3); PLATELET COUNT 126 K/mm3 (130-400); REDCELL DISTRIBUTION WIDTH-CV 14.1 % (11.5-14.5)
[2024-02-24 06:33] LABS: HEMATOCRIT 28.6 % (37.0-47.0); HEMOGLOBIN 9.4 g/dl (12.5-16.0); MEAN CORPUSCULAR HEMOGLOBIN 29 pg (27-31)
[2024-02-24 06:35] LABS: CREATININE, serum 2.97 mg/dL (0.57-1.11); POTASSIUM 4.2 mEq/L (3.5-4.5)
--- NOTE | 2024-02-24 07:00 | NUR ---
AT BEDSIDE SHIFT REPORT PATIENT IS ASLEEP RESTING IN BED. PATIENT EASILY AWAKENS. PATIETN HAS NO NEEDS AT THIS TIME BESIDES DEVAN LEFT ALONE TO SLEEP.
--- NOTE | 2024-02-24 08:00 | NUR ---
PATIENT STATED SHE DOES NOT WANT TO EAT BREAKFAST AT THIS TIME SHE STATED "I JUST WANT TO SLEEP"
[2024-02-24] MEDS ORDERED: amLODIPine 5 MG TAB PO SCH (09:00)
--- NOTE | 2024-02-24 10:03 | NUR ---
PATIENT REFUSING PT AND OT, PE PATIENT SHE DOES NOT GET UP UNTIL ATFTER 11AM.
--- NOTE | 2024-02-24 14:54 | NUR ---
Motorcoach Driver met with patient to provided Medicare.gov list of HH agenies. Patient stated she wants to continue with [facility] . SW again reviewed recommendation for SNF, however patient wants to go home and caregiver is in agreement. During conversation, caregiver Karely asked about [facility], however patient quickly stated she wanted to go home. Discharge Plan: Home with [facility]
[2024-02-24] MEDS ORDERED: Carboxymethylcellulose PF Ophth 0.4 ML DROPPERETTE OP PRN (15:30)
--- NOTE | 2024-02-24 15:57 | NUR ---
Bankruptcy Assistant met with the multidisciplinary team about patient's discharge plan. Patient has declined SNF and wants to return home with [facility]. Patient's caregiver is agreeable to this plan.
[2024-02-24] MEDS ORDERED: Patient's Own Medication Item OP PRN (16:15)
--- NOTE | 2024-02-24 20:15 | NUR ---
Initial shift assessment done- pts care management coordinator/roomate in room with her- feeding etc, both are watching TV, Pt is alert/oriented x4, blind, denies pain/denies SOB, very paricular about her care- does not want to be repositioned/ormoved at this time- is comfortable- heels floated, bed alarm on- was given grahmn cracker and peanut butter for HS snack- no other requests.
[2024-02-25 00:44] VITALS: BP_SYST 136
[2024-02-25 04:03] VITALS: BP 166/63; PULSE 55; TEMP 98.2
[2024-02-25 04:15] VITALS: BP_SYST 166
--- NOTE | 2024-02-25 05:57 | NUR ---
Quiet night- repositioned , has been sleeping well- VSS
--- NOTE | 2024-02-25 07:05 | NUR ---
PATIENT WAS RESTING IN BED, WOKEN UP FOR AM MED AND BEDSIDE SHIFT REPORT. PATIENT IS IN AGREEMEN TO BE WOKEN AT 0930 FOR MEDS AND BREAKFAST. CALL LIGHT WITHIN REACH FALL PRECAUTIONS IN PLACE.
[2024-02-25 07:31] VITALS: BP 172/62; PULSE 55; TEMP 98.1
[2024-02-25 08:45] LABS: BASO % 0.6 % (0.0-2.0); EOS # 0.3 K/mm3 (0.0-0.7); EOS % 5.8 % (0.0-4.0); GRAN # 2.9 K/mm3 (1.4-6.5); GRAN % 56.7 % (42.2-75.2); LYMPH # 1.3 K/mm3 (1.2-3.4); LYMPH % 25.8 % (20.0-51.0); MEAN CELL VOLUME 90 fl (80.0-100.0); MEAN CORPUSCULAR HGB CONC 33 g/dl (33.0-37.0); MEAN PLATELET VOLUME 11.9 fl (7.4-10.4); MONO # 0.5 K/mm3 (0.1-0.6); MONO % 10.5 % (1.7-9.3); PLATELET COUNT 128 K/mm3 (130-400); RED BLOOD COUNT 3.02 M/mm3 (4.10-5.30); REDCELL DISTRIBUTION WIDTH-CV 13.9 % (11.5-14.5)
[2024-02-25 08:54] LABS: HEMATOCRIT 27.3 % (37.0-47.0); HEMOGLOBIN 9.1 g/dl (12.5-16.0); MEAN CORPUSCULAR HEMOGLOBIN 30 pg (27-31)
[2024-02-25 08:57] LABS: CALCIUM 7.9 mg/dL (8.4-10.2); CREATININE, serum 2.77 mg/dL (0.57-1.11); POTASSIUM 4.2 mEq/L (3.5-4.5)
[2024-02-25] MEDS ORDERED: Furosemide 40 MG TAB PO SCH (09:13)
[2024-02-25] MEDS ORDERED: LASIX 40MG TABL40 MG PO (09:14)
[2024-02-25 09:15] VITALS: BP_SYST 172
--- NOTE | 2024-02-25 09:47 | NUR ---
STEVE COMPLAINING OF A SHART PAIN TO THE RIGHT WRIST, HAPPENING FREQUENTLY/INTERMITTENTLY. PATIENT REFUSES TO ALLOW THIS RN TO PLACE ICE TO THE SITE. STEVE REFUSING LASIX DESPITE EDUCATION, PA NOTIFIED OF THE ABOVE.
--- NOTE | 2024-02-25 10:30 | NUR ---
PATIENTS CAREGIVER CALLED AND STATED [facility] WILL ARRIVE AT 1230 TO ASSIST WITH TRANSPORT HOME
--- NOTE | 2024-02-25 10:56 | NUR ---
MAXIM informed by physician that patient is clinically cleared to discharge back to her home. MAXIM called caregiver Valerie [phone] to inform of information. Valerie provided she would call [facility] transportation to assist patient with transport back to her home and will be arriving approximately around 12:30. Caregiver requested consult from pretzel twister. MAXIM called Darren to assist with called transitional care nurse to answer any questions. Discharge documentation sent to [facility] home health. Nothing further at this time.
--- NOTE | 2024-02-25 11:04 | NUR ---
PATIENT IV AN [facility] REMOVED FOR DSICHAGRE.
--- NOTE | 2024-02-25 13:04 | NUR ---
Data: Patient accepted spiritual care visit offered during Pipe Bending Machine Operator rounds. Patient is [employer]. Patient is blind. 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 Life review around these topics and around hobbies she enjoys. Patient's friend called during the visit to inform her that she would discharge today. Patient requested RN wrap her wrist, which occurred during this visit. Assessment: Patient enjoyed having a visitor; was hopeful and optimistic about her discharge and prognosis. Plan of Care: Pipe Bending Machine Operator provided supportive listening and prayer. Pipe Bending Machine Operator will remain available as needed/requested while Patient is admitted to this hospital.
--- NOTE | 2024-02-25 13:18 | NUR ---
PATIENT AND HER CAREGIVER/DPOA GIVEN DISHCARGE INSTRUCTIONS AND EDUCAITON. NEW APT/MED AND FOLLOW UP CAER NEEDED UNDERSTANDING VERBALIZED BY PATINET AND CAREGIVER. PATIENT TAKEN VIA WHEELCHAIR BY [facility] NURSING [facility] TO THEIR TRANSPORT VEHICLE. PATIENT LEFT AWAKE AND ALERT, IN THE CARE OF KAL ND HER DPOA.
== END 2024-02-25 12:45 | disposition home health service (06) | DRG 291 ==
LOC: COL.ER 12:24 → MEDICAL 15:12
PROVIDERS: Emergency Medicine; Physician Assistant; ADMIT Internal Medicine
DX: I13.0 Hypertensive heart and chronic kidney disease with heart failure and stage 1 through stage 4 chronic kidney disease, or unspecified chronic kidney disease (principal); I50.23 Acute on chronic systolic (congestive) heart failure; J96.01 Acute respiratory failure with hypoxia; N17.9 Acute kidney failure, unspecified; N18.4 Chronic kidney disease, stage 4 (severe); E78.5 Hyperlipidemia, unspecified; Z79.4 Long term (current) use of insulin; H54.7 Unspecified visual loss; K21.9 Gastro-esophageal reflux disease without esophagitis; E03.9 Hypothyroidism, unspecified; Z79.82 Long term (current) use of aspirin; Z79.890 Hormone replacement therapy; E11.22 Type 2 diabetes mellitus with diabetic chronic kidney disease; Z86.73 Personal history of transient ischemic attack (TIA), and cerebral infarction without residual deficits; D63.1 Anemia in chronic kidney disease; D69.6 Thrombocytopenia, unspecified; I95.1 Orthostatic hypotension
CPT/HCPCS: A9284; J1644; J1815; J1940; Q3014